=== PATIENT | female | born 1940 | race Caucasian/White ===

== ENCOUNTER 2020-02-11 09:44 | Emergency (ER) | payer MEDICARE, SELFPAY ==
[2020-02-11 09:51] VITALS: BP 160/72; PULSE 89; RESP 18; TEMP 36.5; O2SAT 95; BMI 36.7
--- NOTE | 2020-02-11 10:31 | XR_ITS ---
EXAMINATION: XR ABDOMEN KUB CLINICAL INDICATION: Constipation, disimpacted, rule out small bowel obstruction COMPARISON: None TECHNIQUE: AP view of the abdomen. FINDINGS: The bowel gas pattern is normal with no evidence of ileus or obstruction. Gas and stool present throughout the colon. The rectum appears fairly empty. No unusual soft tissue calcifications are noted. Degenerative changes present in the spine and hips. XR/XR KUB IMPRESSION: Unremarkable examination. No evidence of small bowel obstruction.
--- NOTE | 2020-02-11 10:32 | ED.NAVMDI ---
HPI - Nausea/Vomiting/Diarrhea General Chief complaint: Nausea/Vomiting/Diarrhea Stated complaint: diarrhea Time Seen by Provider: 02/11/20 10:14 Source: patient Mode of arrival: ambulatory History of Present Illness HPI Narrative: 79-year-old female with past medical history of hypertension presenting to the ED complaining of diarrhea, but feeling like stool is stuck in rectum since before . Reports straining on the toilet, feels like she is unable to empty, and reports generalized body shakiness. Denies fever, chills, nausea/vomiting, bloody stools/melena, dysuria/hematuria, suspicious food intake, recent antibiotic MD elicited complaint: diarrhea Related Data Home Medications Medication Instructions Recorded Confirmed famotidine 20 mg tablet 20 mg PO BID PRN tab 01/01/20 hydrochlorothiazide 12.5 mg capsule 12.5 mg PO DAILY 01/01/20 oxybutynin chloride 5 mg tablet 5 mg PO DAILY 01/01/20 simvastatin 20 mg tablet 20 mg PO BEDTIME 01/01/20 estradiol 1 mg tablet 1 mg PO DAILY 01/29/20 Previous Rx's Medication Instructions Recorded diltiazem HCl 240 mg 240 mg PO QAM #90 cap 12/20/19 capsule,extended release 24 hr oxybutynin chloride 5 mg tablet 5 mg PO BEDTIME #90 tab 12/20/19 losartan 50 mg tablet 50 mg PO DAILY #90 tab 01/01/20 cholecalciferol (vitamin D3) 125 125 mcg PO DAILY 90 Days #90 cap 01/31/20 mcg (5,000 unit) capsule estradiol 1 mg tablet 1 mg PO DAILY 30 Days #30 tab 01/31/20 glycerin (adult) 1 supp WA DAILY PRN #12 ea 02/11/20 Allergies Allergy/AdvReac Type Severity Reaction Status Date / Time levofloxacin Allergy Unknown Verified 04/19/19 00:00 penicillin V Allergy Unknown Verified 04/19/19 00:00 Sulfa (Sulfonamide Allergy Unknown Verified 04/19/19 00:00 Antibiotics) No Known Allergies Allergy Unverified 11/02/19 15:43 [No Known Allergies*] Review of Systems Review of Systems: Constitutional: No Weight loss, No Fever, No Chills, +shakiness Cardiovascular: No Chest Pain, No SOB, No Dyspnea on Exertion Respiratory: No Cough, No Sputum, No Wheezing, No Smoke Exposure, No Dyspnea Gastrointestinal: No Nausea, No Vomiting, + Diarrhea, + Constipation, No Abdominal pain, No Hematochezia, No Melena Genitourinary: No irregular bleeding, No Dysuria, No Urinary Frequency, No Hematuria Musculoskeletal: No joint pain, No Myalgias, No Joint Swelling Skin: No Skin Lesions, No rash Neuro: No Weakness, No Numbness, No Dizziness, No Headache Yes all other systems are reviewed and are negative [facility] Past Medical History Attestation statement: The following information was validated with the patient. Social History Social History Smoked in Last 30 Days: No Use of substances other than those prescribed or required for medical reasons: No Advance Directives: No Advance Directives Information Provided: No Physical Exam Vital Signs: Vital Signs: Last Vital Signs Temp 97.7 F 02/11/20 09:51 Pulse 60 02/11/20 11:57 Resp 16 02/11/20 11:57 BP 162/66 H 02/11/20 10:48 Pulse Ox 96 02/11/20 11:57 Body Mass Index 36.7 Const: General: cooperative and healthy appearing Orientation/consciousness: patient oriented x3 Limitations: no limitations HENMT: Head: Yes normal to inspection Ears: hearing grossly normal bilaterally General nose exam: Normal external nose present Face and sinus: Yes normal facial exam Eyes: General: appearance normal, both eyes and all related structures EOM: EOMs intact bilaterally Neck: Neck: Yes normal visual inspection Resp: Effort & Inspection: normal respiratory effort Auscultation: clear to auscultation bilaterally, no rales, no rhonchi and no wheezes Cardio: Rate: regular rate Heart sounds: S1 normal heart sound present and S2 normal heart sound present GI: Inspection: Yes normal to inspection Palpation (GI): Soft to palpation, nontender, no guarding and not rigid Rectal Exam - Female: fecal impaction (Manually disimpacted) : General: Yes no CVA tenderness Back/Spine/Pelvis: Back: no CVA tenderness Skin: Rashes: no rashes Wounds: no wounds Neuro: Other: No shakiness or tremor appreciated General: patient oriented x3, tone normal, moves all extremities, no focal motor deficits and CN's II-XI intact bilaterally Gait exam (Neuro): Normal gait present Motor exam (neuro): 5/5 motor strength present throughout Extrem: General: Yes normal to inspection Course Course Course Narrative: Labs unremarkable KUB without evidence of bowel obstruction Orthostatic vital signs negative UA negative. Lab and imaging results discussed with patient including worrisome signs and symptoms and strict return precautions. She verbalized understanding feel safe for discharge home MDM - Nausea/Vomiting/Diarrhea MDM Narrative Medical decision making narrative: 79-year-old female with past medical history of hypertension presenting to the ED complaining of diarrhea, but feeling like stool is stuck in rectum since before [place]. On exam VSS, NAD/well appearing, abdomen soft/nontender, on rectal fecal impaction noted and manually disimpacted. Concern for SBO vs constipation vs dehydration/metabolic abnormalities. Low concern for ACS/appendicitis/diverticulitis Plan: Labs, KUB, orthostatics, IVF Lab Data Result diagrams: 02/11/20 11:29 02/11/20 11:29 Labs: Lab Results 02/11/20 02/11/20 02/11/20 Range/Units 11:29 11:29 11:29 WBC 10.6 (4.8-10.8) X10*3/uL RBC 4.07 L (4.20-5.50) X10*6/uL Hgb 11.9 L (12.0-16.0) g/dl Hct 36.9 L (37-47) % MCV 90.7 (80-98) fL MCH 29.2 (27.0-33.0) pg MCHC 32.2 (31.0-35.0) g/dl RDW 14.1 (11.0-16.0) % Plt Count 270 (160-400) X10*3/uL MPV 11.4 (9.4-12.3) fL Immature Gran % (Auto) 0.3 (0.0-0.4) % Neut % (Auto) 73.5 H (45-73) % Lymph % (Auto) 16.5 L (20-40) % [place] % (Auto) 8.7 (2-11) % Eos % (Auto) 0.5 (0-4) % Baso % (Auto) 0.5 (0-2) % Lymph # (Auto) 1.8 (1.2-4.9) X10*3/uL [place] # (Auto) 0.9 (0.1-1.2) X10*3/uL Eos # (Auto) 0.1 (0.0-0.4) X10*3/uL Baso # (Auto) 0.1 (0.0-0.2) X10*3/uL Abs Immat Gran (auto) 0.03 (0.00-0.03) X10*3/uL Absolute Neuts (auto) 7.8 (2.0-8.3) X10*3/uL Absolute Nucleated RBC 0.000 (0.0-0.012) X10*3/uL Nucleated RBC % (auto) 0.0 (0.0-0.2) /100WBC Hold Blue Top SEE NOTE Sodium 141 (135-145) mmol/L Potassium 4.0 (3.3-5.1) mmol/l Chloride 107 (96-108) mmol/L Carbon Dioxide 23 (22-29) mmol/L Anion Gap 15 (12-20) BUN 17 H (9-16) mg/dL Creatinine 0.93 (0.5-1.4) mg/dL Estim Creat Clear Calc 46.3 Estimated GFR 58 Random Glucose 129 H (60-115) mg/dL Calcium 9.1 (8.4-10.2) mg/dL Magnesium 1.8 (1.6-2.6) mg/dL Total Bilirubin 0.4 (0.0-1.0) mg/dL Direct Bilirubin 0.2 (0.0-0.5) mg/dL AST 20 (5-31) U/L ALT 11 (0-31) U/L Alkaline Phosphatase 82 (39-117) U/L Total Protein 6.9 (6.5-8.0) g/dL Albumin 3.8 (3.5-5.0) g/dL Lipase 8 (8-78) U/L Urine Color Urine Appearance Urine pH (5.0-8.0) Ur Specific [place] (1.005-1.025) Urine Protein (NEG-TRACE) MG/DL Urine Glucose (UA) (NEG) MG/DL Urine Ketones (NEG) MG/DL Urine Blood (NEG) Urine Nitrite (NEG) Ur Leukocyte Esterase (NEG) 02/10/ Range/Units 12:20 WBC (4.8-10.8) X10*3/uL RBC (4.20-5.50) X10*6/uL Hgb (12.0-16.0) g/dl Hct (37-47) % MCV (80-98) fL MCH (27.0-33.0) pg MCHC (31.0-35.0) g/dl RDW (11.0-16.0) % Plt Count (160-400) X10*3/uL MPV (9.4-12.3) fL Immature Gran % (Auto) (0.0-0.4) % Neut % (Auto) (45-73) % Lymph % (Auto) (20-40) % [place] % (Auto) (2-11) % Eos % (Auto) (0-4) % Baso % (Auto) (0-2) % Lymph # (Auto) (1.2-4.9) X10*3/uL [place] # (Auto) (0.1-1.2) X10*3/uL Eos # (Auto) (0.0-0.4) X10*3/uL Baso # (Auto) (0.0-0.2) X10*3/uL Abs Immat Gran (auto) (0.00-0.03) X10*3/uL Absolute Neuts (auto) (2.0-8.3) X10*3/uL Absolute Nucleated RBC (0.0-0.012) X10*3/uL Nucleated RBC % (auto) (0.0-0.2) /100WBC Hold Blue Top Sodium (135-145) mmol/L Potassium (3.3-5.1) mmol/l Chloride (96-108) mmol/L Carbon Dioxide (22-29) mmol/L Anion Gap (12-20) BUN (9-16) mg/dL Creatinine (0.5-1.4) mg/dL Estim Creat Clear Calc Estimated GFR Random Glucose (60-115) mg/dL Calcium (8.4-10.2) mg/dL Magnesium (1.6-2.6) mg/dL Total Bilirubin (0.0-1.0) mg/dL Direct Bilirubin (0.0-0.5) mg/dL AST (5-31) U/L ALT (0-31) U/L Alkaline Phosphatase (39-117) U/L Total Protein (6.5-8.0) g/dL Albumin (3.5-5.0) g/dL Lipase (8-78) U/L Urine Color YELLOW Urine Appearance CLEAR Urine pH 6.5 (5.0-8.0) Ur Specific [place] 1.020 (1.005-1.025) Urine Protein NEG (NEG-TRACE) MG/DL Urine Glucose (UA) NEG (NEG) MG/DL Urine Ketones NEG (NEG) MG/DL Urine Blood NEG (NEG) Urine Nitrite NEG (NEG) Ur Leukocyte Esterase NEG (NEG) Discharge Plan Discharge Clinical Impression: Fecal impaction Patient Disposition: Home, Self-Care Instructions: Fecal Impaction (ED) Additional Instructions: You had a fecal impaction today in the Emergency Department that was removed Use glycerin suppositories to help loosen the stool If you do not have a normal bowel movement in the next 24-48 hours you need to return to the emergency department Make sure staying hydrated at home If you develop nausea/vomiting, fever, or abdominal pain return to the ED Follow-up with her doctor Prescriptions: New glycerin (adult) Suppository 1 supp WA DAILY PRN (Reason: constipation) Qty: 12 RF: 0 No Action diltiazem HCl [Cartia XT] 240 mg capsule,extended release 24hr 240 mg PO QAM Qty: 90 RF: 0 oxybutynin chloride 5 mg tablet 5 mg PO BEDTIME Qty: 90 RF: 0 hydrochlorothiazide 12.5 mg capsule 12.5 mg PO DAILY RF: 0 famotidine 20 mg tablet 20 mg PO BID PRNRF: 0 oxybutynin chloride 5 mg tablet 5 mg PO DAILY RF: 0 simvastatin 20 mg tablet 20 mg PO BEDTIME RF: 0 losartan 50 mg tablet 50 mg PO DAILY Qty: 90 RF: 0 estradiol 1 mg tablet 1 mg PO DAILY 30 Days Qty: 30 RF: 1 cholecalciferol (vitamin D3) 125 mcg (5,000 unit) capsule 125 mcg PO DAILY 90 Days Qty: 90 RF: 12 Referrals: Duong Ramirez MD [Primary Care Provider] - 2 days
[2020-02-11 10:43] VITALS: BP 152/64; PULSE 69
[2020-02-11 10:46] VITALS: BP 149/67; PULSE 69
[2020-02-11 10:48] VITALS: BP 162/66; PULSE 82
[2020-02-11] MEDS: 0.9 % Sodium Chloride 1,000 ML 999 ML IVCONT (11:03)
[2020-02-11 11:34] LABS: Basophils Absolute Auto 0.1 X10*3/uL (0.0-0.2); Basophils Percent Auto 0.5 % (0-2); Eosinophils Absolute Auto 0.1 X10*3/uL (0.0-0.4); Eosinophils Percent Auto 0.5 % (0-4); Hematocrit 36.9 % (37-47); Hemoglobin 11.9 g/dl (12.0-16.0); Imm Gran Abs Auto 0.03 X10*3/uL (0.00-0.03); Imm Gran Pct Auto 0.3 % (0.0-0.4); Lymphocytes Absolute Auto 1.8 X10*3/uL (1.2-4.9); Lymphocytes Percent Auto 16.5 % (20-40); MANUAL DIFF FLAG NO; Mean Corpuscular HGB Conc 32.2 g/dl (31.0-35.0); Mean Corpuscular Hemoglobin 29.2 pg (27.0-33.0); Mean Corpuscular Volume 90.7 fL (80-98); Mean Platelet Volume 11.4 fL (9.4-12.3); Monocytes Absolute Auto 0.9 X10*3/uL (0.1-1.2); Monocytes Percent Auto 8.7 % (2-11); Neutrophils Absolute Auto 7.8 X10*3/uL (2.0-8.3); Neutrophils Percent Auto 73.5 % (45-73); Platelet Count 270 X10*3/uL (160-400); Red Blood Count 4.07 X10*6/uL (4.20-5.50); Red Cell Distribution Width 14.1 % (11.0-16.0); White Blood Count 10.6 X10*3/uL (4.8-10.8)
[2020-02-11 11:56] LABS: Alanine Aminotransferase 11 U/L (0-31); Albumin Level 3.8 g/dL (3.5-5.0); Alkaline Phosphatase 82 U/L (39-117); Anion Gap 15 (12-20); Aspartate Amino Transferase 20 U/L (5-31); Bilirubin Direct 0.2 mg/dL (0.0-0.5); Bilirubin Total 0.4 mg/dL (0.0-1.0); Blood Urea Nitrogen 17 mg/dL (9-16); Calcium 9.1 mg/dL (8.4-10.2); Carbon Dioxide 23 mmol/L (22-29); Chloride 107 mmol/L (96-108); Creatinine Clr Calc Pharmacy 46.3; Estimated Glomerular Filt Rate 58; Glucose Random 129 mg/dL (60-115); Lipase 8 U/L (8-78); Magnesium 1.8 mg/dL (1.6-2.6); Sodium 141 mmol/L (135-145); Total Protein 6.9 g/dL (6.5-8.0)
[2020-02-11 11:57] VITALS: PULSE 60; RESP 16; O2SAT 96
[2020-02-11 12:30] LABS: Glucose Urine UA NEG (NEG); Leukocyte Esterase Urine NEG (NEG); Nitrite Urine NEG (NEG); PH 6.5 (5.0-8.0); Urine Blood NEG (NEG); Urine Ketones NEG (NEG); Urine Protein NEG (NEG-TRACE)
[2020-02-11 12:32] LABS: Appearance Urine CLEAR; Color Urine YELLOW
== END 2020-02-11 13:18 | disposition home or self-care (01) ==
PROVIDERS: Physician Assistant; Emergency Provider Emergency Medicine Emergency Medical Services; PCP Internal Medicine
DX: K56.41 Fecal impaction (principal); Z79.899 Other long term (current) drug therapy
CPT/HCPCS: 36415; 74018; 80048; 80076; 81003; 83690; 83735; 85025; 96360; 99284

== ENCOUNTER 2020-02-29 07:37 | Outpatient (REF) | payer MEDICARE, SELFPAY ==
[2020-02-29 08:23] LABS: MANUAL DIFF FLAG NO
[2020-02-29 08:36] LABS: Basophils Absolute Auto 0.1 X10*3/uL (0.0-0.2); Basophils Percent Auto 0.8 % (0-2); Eosinophils Absolute Auto 0.2 X10*3/uL (0.0-0.4); Eosinophils Percent Auto 2.6 % (0-4); Imm Gran Abs Auto 0.03 X10*3/uL (0.00-0.03); Imm Gran Pct Auto 0.3 % (0.0-0.4); Lymphocytes Percent Auto 32.1 % (20-40); Mean Corpuscular HGB Conc 31.6 g/dl (31.0-35.0); Mean Corpuscular Hemoglobin 28.7 pg (27.0-33.0); Mean Corpuscular Volume 90.9 fL (80-98); Mean Platelet Volume 12.1 fL (9.4-12.3); Monocytes Absolute Auto 0.9 X10*3/uL (0.1-1.2); Monocytes Percent Auto 10.1 % (2-11); Neutrophils Percent Auto 54.1 % (45-73); Platelet Count 270 X10*3/uL (160-400); Red Blood Count 4.18 X10*6/uL (4.20-5.50); Red Cell Distribution Width 14.3 % (11.0-16.0); White Blood Count 9.2 X10*3/uL (4.8-10.8)
[2020-02-29 08:58] LABS: Alanine Aminotransferase 10 U/L (0-31); Albumin Level 3.7 g/dL (3.5-5.0); Alkaline Phosphatase 80 U/L (39-117); Anion Gap 17 (12-20); Aspartate Amino Transferase 19 U/L (5-31); Bilirubin Total 0.5 mg/dL (0.0-1.0); Blood Urea Nitrogen 23 mg/dL (9-16); Calcium 8.9 mg/dL (8.4-10.2); Carbon Dioxide 19 mmol/L (22-29); Chloride 109 mmol/L (96-108); Cholesterol 160 mg/dL; Estimated Glomerular Filt Rate 56; Glucose Fasting 129 mg/dL (60-99); HDL Cholesterol 60 mg/dL; LDL Cholesterol Calculated 73 mg/dl; Potassium 4.2 mmol/l (3.3-5.1); Sodium 141 mmol/L (135-145); Total Protein 6.7 g/dL (6.5-8.0); Triglycerides 136 mg/dL
[2020-02-29 09:04] LABS: Estimated Average Glucose 114 mg/dL; Hemoglobin A1C 117.8076 umol/L; Hemoglobin A1c % 5.6 %
[2020-02-29 09:20] LABS: Free T4 (Free Thyroxine) 0.85 ng/dL (0.71-1.85); Thyroid Stimulating Hormone 3.81 uIU/mL (0.32-4.0); Vitamin D 25-OH Total 57.1 ng/mL (>30)
[2020-02-29 10:18] LABS: Glucose Urine UA NEG (NEG); Leukocyte Esterase Urine NEG (NEG); Nitrite Urine NEG (NEG); Specific Gravity - Urine 1.025 (1.005-1.025); Urine Blood NEG (NEG); Urine Ketones NEG (NEG); Urine Protein NEG (NEG-TRACE)
[2020-02-29 10:23] LABS: Color Urine YELLOW
[2020-02-29 10:24] LABS: Appearance Urine HAZY
[2020-02-29 11:14] LABS: Bacteria Urine 3+ /LPF; RBC Urine 0 /HPF (0); Squamous Epithelial Cell Urine 3+ /LPF; WBC Urine 0-2 /HPF (0-4)
== END 2020-02-29 07:38 | disposition home or self-care (01) ==
LOC: HO.LAB 07:37
PROVIDERS: Visit Provider Internal Medicine
DX: I10 Essential (primary) hypertension (principal); E78.5 Hyperlipidemia, unspecified; R73.01 Impaired fasting glucose; K21.9 Gastro-esophageal reflux disease without esophagitis; E55.9 Vitamin D deficiency, unspecified; M85.80 Other specified disorders of bone density and structure, unspecified site
CPT/HCPCS: 36415; 80053; 80061; 81001; 82306; 83036; 84439; 84443; 85025

== ENCOUNTER 2020-05-28 09:30 | Observation (INO) | payer MEDICARE, SELFPAY ==
[2020-05-28] VITALS (8 sets, daily range): BP systolic 153–177; BP diastolic 41–87; PULSE 52–63; RESP 14–19; TEMP 36.4–36.7; O2SAT 97–99; BMI 34.0
--- NOTE | ~2020-05-28 | MR_ITS ---
EXAMINATION: BRAIN MRI WITHOUT CONTRAST CLINICAL INFORMATION: Transient ischemic attack. COMPARISON: CT angiogram of the head and neck 05/28/2020. TECHNIQUE: Multiplanar MR imaging of the brain was performed without contrast. FINDINGS: There are scattered nonspecific foci of T2 FLAIR signal hyperintensity within the periventricular white matter. No acute territorial infarct. No pathological magnetic susceptibility artifact. Intracranial vascular flow voids are maintained. There is no intracranial mass effect or midline shift. No abnormal extra-axial collection. Lateral and third ventricles are proportionate to the subarachnoid spaces. Midline structures including the cervicomedullary junction are normal. No acute bone marrow signal changes. There is no mastoid middle ear effusion. There is mild paranasal sinus disease primarily affecting the ethmoid air cells. MR/MR head/brain wo con IMPRESSION: There are scattered chronic small vessel ischemic changes within the periventricular white matter. Otherwise unremarkable examination. No evidence of acute territorial infarct or hemorrhage.
--- NOTE | ~2020-05-28 | CT_ITS ---
EXAMINATION: CT angio head neck CLINICAL INFORMATION: Right upper extremity weakness and numbness. COMPARISON: No relevant prior imaging. TECHNIQUE: Program Attendant images were obtained. A CT angiogram of the head and neck was performed in the arterial phase after the intravenous administration of 70 mL Omnipaque 350. Pre and delayed postcontrast images of the head were also obtained. MIP reconstructions were generated in multiple orientations at the acquisition workstation. Multiple three-dimensional surface rendered images and maximum intensity projection images were generated on a dedicated 3-D lab workstation. Arterial stenoses are measured in accordance with NASCET criteria or similar method if applicable. This CT examination was performed using dose optimization techniques as appropriate, including one or more of the following: Automated exposure control, iterative reconstruction, and adjustment of technique factors (mA and/or kVp) according to patient size (this includes techniques or standardized protocols for targeted exams where dose is matched to indication/reason for exam). Total exam dose-length product 2055 mGy-cm FINDINGS: Head: There is no acute intracranial hemorrhage or abnormal extra-axial collection. Postcontrast sagittal no abnormal intracranial mass or enhancement. No intracranial mass effect midline shift. Lateral and third ventricles are proportionate to the subarachnoid spaces. No hydrocephalus. There are numerous foci of hypoattenuation within the periventricular white matter that most likely represent a chronic manifestation of small vessel ischemia. Godfrey-white matter differentiation is otherwise preserved and there is no evidence of acute territorial infarct. The calvarium and skull base are intact. Mastoid air cells and middle ear cavities are well aerated. No active paranasal sinus disease. CT angiogram neck: The aortic arch apex is normal. Origins of major aortic branches are widely patent., Carotid arteries are patent. Partially calcified atherosclerotic plaque involves both carotid bifurcations. No stenosis of the extracranial internal carotid arteries. The cervical segments of the vertebral arteries as well as their origins are patent. CT angiogram head: Intracranial internal carotid arteries are normal. The intradural vertebral artery segments and basilar artery are normal. Anterior, middle, and posterior cerebral complexes are normal. No high-grade stenosis or proximal occlusion is visualized within the intracranial vessels. Other: Soft tissues of the neck including the thyroid gland are normal. Visualized lung apices are clear. There is no acute osseous finding. No worrisome lytic or blastic osseous lesion. CT/CT angio head neck IMPRESSION: Unremarkable CT angiogram of the head and neck in that there is no stenosis of the cervical carotid or vertebral arteries. No high-grade stenosis or proximal occlusion within the intracranial vessels. There are numerous chronic small vessel ischemic changes within the periventricular white matter. No evidence of acute territorial infarct or hemorrhage. No abnormal intracranial mass or enhancement.
--- NOTE | 2020-05-28 09:39 | ECG_ITS ---
Test Reason : CHEST PAIN Blood Pressure : / mmHG Vent. Rate : 055 BPM Atrial Rate : 055 BPM P-R Int : 178 ms QRS Dur : 160 ms QT Int : 488 ms P-R-T Axes : 047 055 040 degrees QTc Int : 466 ms Sinus bradycardia Right bundle branch block Abnormal ECG When compared with ECG of 28-OCT-2017 09:34, No significant change was found Referred By: Generic ED Physician Electronically Signed By:VIELKA NAJERA
--- NOTE | 2020-05-28 10:11 | ED.CHESTPAIN ---
HPI - Chest Pain General Chief Complaint: Chest Pain Stated Complaint: chest pain Time Seen by Provider: 05/28/20 10:11 Source: patient Mode of arrival: ambulatory Limitations: no limitations History of Present Illness HPI narrative: Today patient had chest pain that lasted for 5 minutes. Yesterday patient had weakness to her right arm for 5 minutes MD complaint: chest pain Onset (ago): minute(s) Timing of current episode: constant Onset: during rest Pain location: substernal Pain radiation: none Severity: moderate Related Data Home Medications Medication Instructions Recorded Confirmed famotidine 20 mg tablet 20 mg PO BID PRN tab 01/01/20 03/04/20 estradiol 1 mg tablet 1 mg PO DAILY 01/29/20 03/04/20 Previous Rx's Medication Instructions Recorded glycerin (adult) 1 supp NM DAILY PRN #12 ea 02/11/20 cholecalciferol (vitamin D3) 50 50 mcg PO DAILY 90 Days #90 cap 03/04/20 mcg (2,000 unit) capsule diltiazem HCl 240 mg 240 mg PO QAM #90 cap 03/23/20 capsule,extended release 24 hr oxybutynin chloride 5 mg tablet 5 mg PO BEDTIME #90 tab 03/25/20 estradiol 1 mg tablet 1 mg PO DAILY 30 Days #30 tab 04/03/20 losartan 50 mg tablet 50 mg PO DAILY #90 tab 04/03/20 clonazepam 0.5 mg tablet 0.5 mg PO DAILY PRN 30 Days #30 tab 05/01/20 hydrochlorothiazide 12.5 mg capsule 12.5 mg PO DAILY #90 cap 05/01/20 simvastatin 20 mg tablet 20 mg PO BEDTIME #90 tab 05/26/20 Allergies Allergy/AdvReac Type Severity Reaction Status Date / Time levofloxacin Allergy Unknown Unknown Verified 03/04/20 14:45 penicillin V Allergy Unknown Unknown Verified 03/04/20 14:45 Sulfa (Sulfonamide Allergy Unknown Unknown Verified 03/04/20 14:45 Antibiotics) Review of Systems Constitutional: Constitutional: Reports no additional constitutional complaints Eyes: Eyes: Reports no additional eye complaints ENT: Denies dizziness Cardiovascular: Cardiovascular: Reports no additional cardiovascular complaints Respiratory: Respiratory: Reports as per HPI Gastrointestinal: Gastrointestinal: Reports no additional gastrointestinal complaints Genitourinary: Genitourinary: Reports no additional female genitourinary complaints Musculoskeletal: Musculoskeletal: Reports no additional musculoskeletal complaints Integumentary/Breasts: Skin/Breast: Denies rash Neurologic: Reports system reviewed and no additional complaints, except as documented, Denies dizziness and Denies Sensory deficit (Neuro) Psychiatric: Psychiatric: Denies anxiety [facility] Past Medical History Medical History Anxiety Benign essential hypertension Elevated TSH GERD without esophagitis Impaired fasting glucose Lumbar degenerative disc disease Obesity (BMI 30-39.9) Osteopenia Pure hypercholesterolemia Vitamin D deficiency Surgical History History of surgery History of total abdominal hysterectomy and bilateral salpingo-oophorectomy Family History Family History Father Cancer Mother Cancer Hypertension Chronic mental illness Brother No problems noted. Sister No problems noted. Social History Social History Alcohol intake: current Alcohol intake frequency: holidays/special occasions only Alcohol type: wine Smoking Status: Never smoker Advance Directives: No Physical Exam Vital Signs: Vital Signs: Last Vital Signs Temp 98.1 F 05/28/20 10:02 Pulse 58 05/28/20 10:02 Resp 16 05/28/20 10:02 BP 165/47 H 05/28/20 10:02 Pulse Ox 98 05/28/20 10:02 Body Mass Index 34.0 Const: General: healthy appearing Nutritional Appearance: obese Orientation/consciousness: oriented to person and patient oriented x3 Limitations: no limitations HENMT: Head: Yes normal to inspection Ears: external ears normal General nose exam: Normal external nose present Mouth: Normal oral and palatal mucosa present and oropharynx normal Throat: Yes posterior oropharynx normal Eyes: General: appearance normal, both eyes and all related structures Neck: Other: supple Neck: Yes normal visual inspection Chest: Chest palpation & inspection: normal inspection of the chest Resp: Auscultation: clear to auscultation bilaterally Cardio: Jugular venous distension: no JVD Rate: regular rate Rhythm: regular rhythm Heart sounds: S1 normal heart sound present and S2 normal heart sound present GI: Inspection: Yes normal to inspection Palpation (GI): Soft to palpation, nontender and No hepatosplenomegaly present Auscultation: normal bowel sounds : General: Yes no CVA tenderness Back/Spine/Pelvis: Back: no CVA tenderness Skin: General skin exam: no rashes or lesions noted Neuro: General: oriented to person and patient oriented x3 Cranial nerves: Yes CN's II-XII intact bilaterally Motor exam (neuro): 5/5 motor strength present throughout Sensory Exam: No Sensory deficit (Neuro) Extrem: General: Yes normal to inspection Psych: Appearance: grossly normal NIH Stroke Scale Internal: Initial- Upon Arrival Level of Consciousness: Alert Level of Consciousness Questions: Answers both questions correctly Level of Consciousness Commands: Performs both tasks correctly Best Gaze: Normal Visual: No visual loss Facial Palsy: Normal Motor Arm (Right): No drift Motor Arm (Left): No drift Motor Leg (Right): No drift Motor Leg (Left): No drift Limb Ataxia: Absent Sensory: Normal Best Language: No aphasia Dysarthia: Normal Extinction and Inattention: No abnormality Score: 0 MDM - Chest Pain MDM Narrative Medical decision making narrative: patient with an episode of palpitations today, question of SVT vs Afib, major reason for admission is likely TIA yesterday that affected her right arm lasting [address] that showed microinfarctions, but no severe stenosis of her arteries will admit Lab Data Attestation: I reviewed the patient's lab results. Result diagrams: 05/28/20 11:18 05/28/20 11:18 Labs: Lab Results 05/28/20 05/28/20 05/28/20 Range/Units 11:18 11:18 11:18 WBC 7.8 (4.8-10.8) X10*3/uL RBC 4.34 (4.20-5.50) X10*6/uL Hgb 12.3 (12.0-16.0) g/dl Hct 39.0 (37-47) % MCV 89.9 (80-98) fL MCH 28.3 (27.0-33.0) pg MCHC 31.5 (31.0-35.0) g/dl RDW 14.2 (11.0-16.0) % Plt Count 273 (160-400) X10*3/uL MPV 10.9 (9.4-12.3) fL Immature Gran % (Auto) 0.1 (0.0-0.4) % Neut % (Auto) 55.3 (45-73) % Lymph % (Auto) 30.4 (20-40) % [place] % (Auto) 10.7 (2-11) % Eos % (Auto) 2.7 (0-4) % Baso % (Auto) 0.8 (0-2) % Lymph # (Auto) 2.4 (1.2-4.9) X10*3/uL [place] # (Auto) 0.8 (0.1-1.2) X10*3/uL Eos # (Auto) 0.2 (0.0-0.4) X10*3/uL Baso # (Auto) 0.1 (0.0-0.2) X10*3/uL Abs Immat Gran (auto) 0.01 (0.00-0.03) X10*3/uL Absolute Neuts (auto) 4.3 (2.0-8.3) X10*3/uL Absolute Nucleated RBC 0.000 (0.0-0.012) X10*3/uL Nucleated RBC % (auto) 0.0 (0.0-0.2) /100WBC Sodium 142 (135-145) mmol/L Potassium 4.8 (3.3-5.1) mmol/L Chloride 108 (96-108) mmol/L Carbon Dioxide 24 (22-29) mmol/L Anion Gap 15 (12-20) BUN 21 H (9-16) mg/dL Creatinine 0.92 (0.5-1.4) mg/dL Estim Creat Clear Calc 46.8 Estimated GFR 59 Random Glucose 111 (60-115) mg/dL Calcium 9.7 D (8.4-10.2) mg/dL Troponin I High Sens < 3.5 (<3.5-17.0) ng/L ECG Data ECG #1: Attestation: I personally reviewed and interpreted this ECG as follows: Interpretation: sinus rate 55 RBBB, no st or twave changes Critical Care Time Critical Care Time Attestation: I spent 40 minutes of critical care, with interventions, assessments, speaking to patient, consultants, and family. Discharge Plan Discharge Clinical Impression: Transient ischemic attack (TIA), Heart palpitations Patient Disposition: Admitted As Inpatient
[2020-05-28 11:25] LABS: MANUAL DIFF FLAG NO
[2020-05-28 11:26] LABS: Basophils Absolute Auto 0.1 X10*3/uL (0.0-0.2); Basophils Percent Auto 0.8 % (0-2); Eosinophils Absolute Auto 0.2 X10*3/uL (0.0-0.4); Eosinophils Percent Auto 2.7 % (0-4); Hemoglobin 12.3 g/dl (12.0-16.0); Imm Gran Abs Auto 0.01 X10*3/uL (0.00-0.03); Imm Gran Pct Auto 0.1 % (0.0-0.4); Lymphocytes Absolute Auto 2.4 X10*3/uL (1.2-4.9); Lymphocytes Percent Auto 30.4 % (20-40); Mean Corpuscular HGB Conc 31.5 g/dl (31.0-35.0); Mean Corpuscular Hemoglobin 28.3 pg (27.0-33.0); Mean Corpuscular Volume 89.9 fL (80-98); Mean Platelet Volume 10.9 fL (9.4-12.3); Monocytes Absolute Auto 0.8 X10*3/uL (0.1-1.2); Monocytes Percent Auto 10.7 % (2-11); Neutrophils Absolute Auto 4.3 X10*3/uL (2.0-8.3); Neutrophils Percent Auto 55.3 % (45-73); Platelet Count 273 X10*3/uL (160-400); Red Blood Count 4.34 X10*6/uL (4.20-5.50); Red Cell Distribution Width 14.2 % (11.0-16.0); White Blood Count 7.8 X10*3/uL (4.8-10.8)
[2020-05-28 11:52] LABS: Anion Gap 15 (12-20); Blood Urea Nitrogen 21 mg/dL (9-16); Calcium 9.7 mg/dL (8.4-10.2); Carbon Dioxide 24 mmol/L (22-29); Chloride 108 mmol/L (96-108); Creatinine Clr Calc Pharmacy 46.8; Estimated Glomerular Filt Rate 59; Glucose Random 111 mg/dL (60-115); Potassium 4.8 mmol/L (3.3-5.1); Sodium 142 mmol/L (135-145)
[2020-05-28 11:57] LABS: Troponin-I High Sensitivity < 3.5 ng/L (<3.5-17.0)
[2020-05-28] MEDS: iohexoL 350 MG/ML 100 ML INFUS..BTL IV (12:22)
--- NOTE | 2020-05-28 13:57 | P.HPHOSP_ITS ---
History of Present Illness Date of Service: 05/28/20 Chief Complaint: Palpitation left arm weakness the day before. 79-year-old female with hypertension, hyperlipidemia presents to the emergency room because of palpitation and right arm weakness that happened yesterday. She reports that yesterday she had an episode where her right arm became weak and numb for 5 minutes and a return to normal function and and has been fine. Today she had an experience where she was having palpitation and the episode lasted a bout 5 minutes. Iit has been documented elsewhere as the patient having chest pain but she categorically states that she did not have chest but rather had palpitation. Workup so far has been essentially unremarkable including EKG, troponin I level, CT of the head and neck. However there is still concern that the patient may have suffered a TIA and therefore has been admitted for further evaluation and monitoring. Review of Systems Review of Systems: Gen: no fever Resp: no sob, no cough CV: no chest, no WHYTE, no leg edema GI: No n/v, no abd pain Neuro: No confusion, no weaknes, no dizziness, visual changes. [facility] Medical History Anxiety Benign essential hypertension Elevated TSH GERD without esophagitis Impaired fasting glucose Lumbar degenerative disc disease Obesity (BMI 30-39.9) Osteopenia Pure hypercholesterolemia Vitamin D deficiency Patient : No Family History Father Cancer Mother Cancer Hypertension Chronic mental illness Brother No problems noted. Sister No problems noted. Pertinent family history: Surgical History History of surgery History of total abdominal hysterectomy and bilateral salpingo-oophorectomy Social History Alcohol intake: current Alcohol intake frequency: holidays/special occasions only Alcohol type: wine Smoking Status: Never smoker Advance Directives: No Meds Allergies Allergy/AdvReac Type Severity Reaction Status Date / Time levofloxacin Allergy Unknown Unknown Verified 03/04/20 14:45 penicillin V Allergy Unknown Unknown Verified 03/04/20 14:45 Sulfa (Sulfonamide Allergy Unknown Unknown Verified 03/04/20 14:45 Antibiotics) Home Medications Medication Instructions Recorded Confirmed Last Taken Type famotidine 20 mg tablet 20 mg PO BID PRN tab 01/01/20 03/04/20 Unknown History Physical Exam Vital Signs and Narrative: Vital Signs: Last Vital Signs Temp 97.7 F 05/28/20 13:48 Pulse 52 05/28/20 13:48 Resp 19 05/28/20 13:48 BP 177/55 H 05/28/20 13:48 Pulse Ox 98 05/28/20 13:48 Body Mass Index 34.0 Constitutional Awake and Alert, No apparent distress HEENT normal eye color, nomal movement, Neck Supple, No lymphadenopathy Cardiovascular RRR, No M/R/G, S1 S2, No S3 S4, No pedal edema Respiratory Lungs clear, No respiratory distress Gastrointestinal Non tender, Non-distended Skin No rash Heme no lymphadenopathy Neurological Alert & oriented x3, normal cranial nerves, strenght 5/5 in all extremities Psychological Appropriate affect Results Labs CBC and Chem 7: 05/28/20 11:18 05/28/20 11:18 Labs: Laboratory Results - last 24 hr 05/28/20 05/28/20 05/28/20 11:18 11:18 11:18 MCV 89.9 MCH 28.3 MCHC 31.5 RDW 14.2 Plt Count 273 MPV 10.9 Immature Gran % (Auto) 0.1 Neut % (Auto) 55.3 Lymph % (Auto) 30.4 [place] % (Auto) 10.7 Eos % (Auto) 2.7 Baso % (Auto) 0.8 Lymph # (Auto) 2.4 [place] # (Auto) 0.8 Eos # (Auto) 0.2 Baso # (Auto) 0.1 Abs Immat Gran (auto) 0.01 Absolute Neuts (auto) 4.3 Absolute Nucleated RBC 0.000 Nucleated RBC % (auto) 0.0 Anion Gap 15 Estim Creat Clear Calc 46.8 Estimated GFR 59 Random Glucose 111 Calcium 9.7 D Troponin I High Sens < 3.5 Imaging Radiologist's Impressions: Impressions Head/Neck CTA 05/28/20 10:23 IMPRESSION: Unremarkable CT angiogram of the head and neck in that there is no stenosis of the cervical carotid or vertebral arteries. No high-grade stenosis or proximal occlusion within the intracranial vessels. There are numerous chronic small vessel ischemic changes within the periventricular white matter. No evidence of acute territorial infarct or hemorrhage. No abnormal intracranial mass or enhancement. Assessment and Plan (1) Transient ischemic attack (TIA): Status: Acute (2) Heart palpitations: Status: Acute (3) Obesity (BMI 30-39.9): Status: Acute (4) Anxiety: Status: Acute (5) GERD without esophagitis: Status: Acute 79 year old female with HTN, HLD here with transient palpitation and right arm weakness 1 day ago..Concern TIA, AF Plan: #TIA:Monitor on tele to rule out AFIB, neuro checks per stroke protocol, check lipids in morning, controll HTN, add ASA, continue statin, #HTN--high, continue cardizem, Losartan and HCTZ and adjust for optimal BP co ntrol # Anxiety--ativan PRN #Bladder incontinence--Oxybutynin DVT Proph: Lovenox
[2020-05-28 14:57] LABS: Cholesterol 177 mg/dL; HDL Cholesterol 58 mg/dL; LDL Cholesterol Calculated 98 mg/dl; Triglycerides 107 mg/dL
[2020-05-28] MEDS: Enoxaparin Sodium 40 MG/0.4 ML SYRINGE SUBCUT (19:57)
[2020-05-29] VITALS: BP 149/65; PULSE 50; RESP 18; TEMP 36.4; O2SAT 98
[2020-05-29] MEDS: 0.9 % Sodium Chloride Flush 3 ML SYRINGE IVFLUSH ×2 (01:08→09:28)
[2020-05-29 04:00] VITALS: BP 141/65; PULSE 50; RESP 18; TEMP 36.4; O2SAT 99
[2020-05-29 07:25] VITALS: BP 170/74; PULSE 61; RESP 18; TEMP 36.6; O2SAT 97
--- NOTE | 2020-05-29 11:01 | MHC.CM.PN ---
met with pt and who report not having services prior to admission..and do not expect to need sevceis when dcd
--- NOTE | 2020-05-29 11:07 | PM.DS ---
DS: Providers Provider Date of Service: 06/18/20 Date of admission: 05/28/20 13:54 Primary care physician: Duong Ramirez MD Consults: 05/29/20 09:55 Consult to Neurology Routine Consulting Provider: [facility] Reason for consultation: TIA DS: Diagnosis Discharge Diagnosis (1) Transient ischemic attack (TIA): Status: Resolved Problem details: 79 years old woman who complained of few minutes of right hand numbness and weakness few days ago. There was no other associated symptom. At this time examination reveal signs of arthritis in abductor pollicis brevis atrophy. There was no obvious central signs. Head CT revealed chronic microvascular ischemic disease and CTA did not reveal any significant problem. She also complained of chest pressure before she came to emergency room. Overall clinical history is suggestive of transient ischemic attack or a small stroke. Though there is no large vessel disease, in this age group, cardiac source of embolism is a concern. It would be important to figure out if she really had a vascular event or not, i.e., embolic stroke. In this regard I would suggest obtaining a noncontrast MRI of brain before discharge, which would help us figure out her future clinical management. Until then she should continue combination of anti-platelet agent statin and blood pressure control. (2) Heart palpitations: Status: Resolved (3) Obesity (BMI 30-39.9): Status: Acute (4) Anxiety: Status: Acute (5) GERD without esophagitis: Status: Acute DS: Medications Discharge Medications Home Medications: Home Medications Medication Instructions Recorded Confirmed famotidine 20 mg tablet 20 mg PO BID PRN tab 01/01/20 03/04/20 Previous Rx's Medication Instructions Recorded glycerin (adult) 1 supp AK DAILY PRN #12 ea 02/11/20 cholecalciferol (vitamin D3) 50 50 mcg PO DAILY 90 Days #90 cap 03/04/20 mcg (2,000 unit) capsule diltiazem HCl 240 mg 240 mg PO QAM #90 cap 03/23/20 capsule,extended release 24 hr oxybutynin chloride 5 mg tablet 5 mg PO BEDTIME #90 tab 03/25/20 estradiol 1 mg tablet 1 mg PO DAILY 30 Days #30 tab 04/03/20 losartan 50 mg tablet 50 mg PO DAILY #90 tab 04/03/20 clonazepam 0.5 mg tablet 0.5 mg PO DAILY PRN 30 Days #30 tab 05/01/20 hydrochlorothiazide 12.5 mg capsule 12.5 mg PO DAILY #90 cap 05/01/20 simvastatin 20 mg tablet 20 mg PO BEDTIME #90 tab 05/26/20 DS: Summary Hospital Course Hospital Course: Chief Complaint: Palpitation left arm weakness the day before. 79-year-old female with hypertension, hyperlipidemia presents to the emergency room because of palpitation and right arm weakness that happened yesterday. She reports that yesterday she had an episode where her right arm became weak and numb for 5 minutes and a return to normal function and and has been fine. Today she had an experience where she was having palpitation and the episode lasted about 5 minutes. Iit has been documented elsewhere as the patient having chest pain but she categorically states that she did not have chest but rather had palpitation. Workup so far has been essentially unremarkable including EKG, troponin I level, CT of the head and neck. However there is still concern that the patient may have suffered a TIA and therefore has been admitted for further evaluation and monitoring. Hospital course: Time Spent with Patient Time attestation: Total time spent providing and/or coordinating discharge services: Discharge coordination time: Greater than 30 minutes Physical Exam Vital Signs: Vital Signs: Last Vital Signs Temp 97.9 F 05/29/20 07:25 Pulse 61 05/29/20 07:25 Resp 18 05/29/20 07:25 BP 170/74 H 05/29/20 07:25 Pulse Ox 97 05/29/20 07:25 Body Mass Index 34.0 DS: Data Data Completed and Pending Labs on day of discharge: Laboratory Results - last 24 hr 05/28/20 05/28/20 05/28/20 11:18 11:18 11:18 WBC 7.8 RBC 4.34 Hgb 12.3 Hct 39.0 MCV 89.9 MCH 28.3 MCHC 31.5 RDW 14.2 Plt Count 273 MPV 10.9 Immature Gran % (Auto) 0.1 Neut % (Auto) 55.3 Lymph % (Auto) 30.4 [place] % (Auto) 10.7 Eos % (Auto) 2.7 Baso % (Auto) 0.8 Lymph # (Auto) 2.4 [place] # (Auto) 0.8 Eos # (Auto) 0.2 Baso # (Auto) 0.1 Abs Immat Gran (auto) 0.01 Absolute Neuts (auto) 4.3 Absolute Nucleated RBC 0.000 Nucleated RBC % (auto) 0.0 Sodium 142 Potassium 4.8 Chloride 108 Carbon Dioxide 24 Anion Gap 15 BUN 21 H Creatinine 0.92 Estim Creat Clear Calc 46.8 Estimated GFR 59 Random Glucose 111 Calcium 9.7 D Troponin I High Sens < 3.5 Triglycerides 107 Cholesterol 177 LDL Cholesterol, Calc 98 HDL Cholesterol 58 Discharge Plan Discharge Anticipated Discharge Date/Time: 05/29/20 11:06 Patient Disposition: Home, Self-Care Referrals: Duong Ramirez MD [Primary Care Provider] - 1 Week Discharge Medications: New aspirin 81 mg tablet,delayed release (DR/EC) 81 mg PO DAILY Qty: 90 RF: 0 Continued famotidine 20 mg tablet 20 mg PO BID PRNRF: 0 diltiazem HCl [Cartia XT] 240 mg capsule,extended release 24hr 240 mg PO QAM Qty: 90 RF: 1 oxybutynin chloride 5 mg tablet 5 mg PO BEDTIME Qty: 90 RF: 0 losartan 50 mg tablet 50 mg PO DAILY Qty: 90 RF: 1 hydrochlorothiazide 12.5 mg capsule 12.5 mg PO DAILY Qty: 90 RF: 0 simvastatin 20 mg tablet 20 mg PO BEDTIME Qty: 90 RF: 2 glycerin (adult) Suppository 1 supp AK DAILY PRN (Reason: constipation) Qty: 12 RF: 0 No Action clonazepam 0.5 mg tablet 0.5 mg PO DAILY PRN (Reason: anxiety) 30 Days Qty: 30 RF: 0 estradiol 1 mg tablet 1 mg PO DAILY 30 Days Qty: 30 RF: 1 cholecalciferol (vitamin D3) 125 mcg (5,000 unit) capsule 125 mcg PO DAILY RF: 0 Discharge Orders: Discharge Order (Routine); Ordered 05/29/20 Ordered By: Markie Angelo Diet: advance to usual diet Activity on Discharge: As tolerated Stand Alone Forms: Patient Portal Discharge page Care Plan Goals: Stroke prevention Health Concerns: Transient right arm weakness Plan of Treatment: Control blood pressure, take her lipid medications, take Assessment: TIA (transient ischemic attack.), follow-up with her primary care physician. Discharge Date/Time: 05/29/20 16:00
[2020-05-29 11:14] VITALS: BP 170/72; PULSE 60; RESP 18; TEMP 36.6; O2SAT 98
--- NOTE | 2020-05-29 11:28 | P.CNNE_ITS ---
History of Present Illness Data of Consult Service Date: 05/29/20 Primary Care Provider: Duong Ramirez MD 79 years old woman with underlying history of anxiety and obesity who came to hospital with right hand numbness and weakness that that was at least a day or 2 before she came to emergency room. When she arrived she had preceding chest pressure bringing her to emergency room. She stated that a day or 2 before that she had right hand numbness. Numbness was like her hand was not working. It lasted for few minutes. There was no associated headache or any other symptom. Review of Systems Review of Systems: Recent complaint of chest pressure but no cold or flu-like illness or trauma or neck pain. No headache. [facility] Past Medical History Medical History Anxiety Benign essential hypertension Elevated TSH GERD without esophagitis Impaired fasting glucose Lumbar degenerative disc disease Obesity (BMI 30-39.9) Osteopenia Pure hypercholesterolemia Vitamin D deficiency Family History Family History Father Cancer Mother Cancer Hypertension Chronic mental illness Brother No problems noted. Sister No problems noted. Surgical History Surgical History History of surgery History of total abdominal hysterectomy and bilateral salpingo-oophorectomy Social History Social History Alcohol intake: current Alcohol intake frequency: holidays/special occasions only Alcohol type: wine Smoking Status: Never smoker Advance Directives: No service: No Meds Allergies Allergy/AdvReac Type Severity Reaction Status Date / Time levofloxacin Allergy Unknown Unknown Verified 03/04/20 14:45 penicillin V Allergy Unknown Unknown Verified 03/04/20 14:45 Sulfa (Sulfonamide Allergy Unknown Unknown Verified 03/04/20 14:45 Antibiotics) Active Medications: Current Medications Generic Name Dose Route Start Last Admin Trade Name Freq PRN Reason Stop Dose Admin Diltiazem HCl 240 mg 05/29/20 11:15 Diltiazem Hcl Cd 240 Mg Cap.Er.Deg PO DAILY ONI Protocol Enoxaparin Sodium 40 mg 05/28/20 18:00 05/28/20 19:57 Enoxaparin Sodium 40 Mg/0.4 Ml Syringe SUBCUT 40 mg Q24H ONI Administration Hydrochlorothiazide 12.5 mg 05/29/20 11:05 Hydrochlorothiazide 12.5 Mg Tablet PO DAILY ONI Protocol Losartan Potassium 50 mg 05/29/20 11:05 Losartan Potassium 50 Mg Tablet PO DAILY [facility] Protocol Sodium Chloride 3 ml 05/28/20 16:00 05/29/20 09:28 0.9 % Sodium Chloride Flush 3 Ml Syringe IVFLUSH 3 ml QSHIFT ONI Administration Home Medications Medication Instructions Recorded Confirmed Last Taken Type famotidine 20 mg tablet 20 mg PO BID PRN tab 01/01/20 03/04/20 Unknown History Physical Exam Vital Signs: Vital Signs: Last Vital Signs Temp 97.8 F 05/29/20 11:14 Pulse 60 05/29/20 11:14 Resp 18 05/29/20 11:14 BP 170/72 H 05/29/20 11:14 Pulse Ox 98 05/29/20 11:14 Body Mass Index 34.0 She is alert and awake with normal spontaneity of speech fluency comprehension and affect. Pupils are equal and reactive to light and extraocular muscles were intact. Visual fisher are full. Face is symmetrical. Tongue is midline. There is no pronator drift. Arthritic changes and abductor pollicis brevis atrophy is noted in hands. Deep tendon reflexes are absent with flexor plantars. There is no obvious focal arm or leg weakness. Speech is normal. Results Labs CBC & Chem 7: 05/28/20 11:18 05/28/20 11:18 Labs: Short CBC 05/28/20 Range/Units 11:18 WBC 7.8 (4.8-10.8) X10*3/uL Hgb 12.3 (12.0-16.0) g/dl Hct 39.0 (37-47) % Plt Count 273 (160-400) X10*3/uL BMP 05/28/20 11:18 Sodium 142 Potassium 4.8 Chloride 108 Carbon Dioxide 24 BUN 21 H Creatinine 0.92 Calcium 9.[address] and CTA reveal chronic microvascular ischemic changes but no obvious vascular lesion or acute lesion. Assessment and Plan (1) Transient ischemic attack (TIA): Problem details: 79 years old woman who complained of few minutes of right hand numbness and weakness few days ago. There was no other associated symptom. At this time examination reveal signs of arthritis in abductor pollicis brevis atrophy. There was no obvious central signs. Head CT revealed chronic microvascular ischemic disease and CTA did not reveal any significant problem. She also complained of chest pressure before she came to emergency room. Overall clinical history is suggestive of transient ischemic attack or a small stroke. Though there is no large vessel disease, in this age group, cardiac source of embolism is a concern. It would be important to figure out if she really had a vascular event or not, i.e., embolic stroke. In this regard I would suggest obtaining a noncontrast MRI of brain before discharge, which would help us figure out her future clinical management. Until then she should continue combination of anti-platelet agent statin and blood pressure control. Status: Acute
[2020-05-29] MEDS: dilTIAZem HCL CD 240 MG CAP.ER.DEG PO (12:57)
[2020-05-29] MEDS: Losartan Potassium 50 MG TABLET PO (12:57)
[2020-05-29] MEDS: hydroCHLOROthiazide 12.5 MG TABLET PO (12:57)
[2020-05-29 15:06] VITALS: BP 138/63; PULSE 70; RESP 15; TEMP 36.6; O2SAT 96
--- NOTE | 2020-05-29 15:29 | MHC.CM.PN ---
pt dc home no services odered by
== END 2020-05-29 16:00 | disposition home or self-care (01) ==
LOC: HO.ED 13:09 → HO.EDOVER 14:10 → HO.IMC 19:28
PROVIDERS: Admitting Provider Internal Medicine; Emergency Provider Emergency Medicine; PCP Internal Medicine; Visit Provider Internal Medicine
DX: G45.9 Transient cerebral ischemic attack, unspecified (principal); R00.2 Palpitations; E66.9 Obesity, unspecified; F41.9 Anxiety disorder, unspecified; K21.9 Gastro-esophageal reflux disease without esophagitis; M62.81 Muscle weakness (generalized); R07.89 Other chest pain; I10 Essential (primary) hypertension; R94.6 Abnormal results of thyroid function studies; R73.09 Other abnormal glucose; M85.80 Other specified disorders of bone density and structure, unspecified site; E78.00 Pure hypercholesterolemia, unspecified; E55.9 Vitamin D deficiency, unspecified; I45.10 Unspecified right bundle-branch block; R94.31 Abnormal electrocardiogram [ECG] [EKG]; Z88.0 Allergy status to penicillin; Z88.2 Allergy status to sulfonamides; Z88.8 Allergy status to other drugs, medicaments and biological substances; Z90.710 Acquired absence of both cervix and uterus; Z90.79 Acquired absence of other genital organ(s); Z90.722 Acquired absence of ovaries, bilateral; Z79.82 Long term (current) use of aspirin; Z79.899 Other long term (current) drug therapy
CPT/HCPCS: 36415; 70496; 70498; 70551; 80048; 80061; 84484; 85025; 93005; 96372; 99219; 99285; 99291; J1650; Q9967

== ENCOUNTER 2020-09-09 07:18 | Outpatient (REF) | payer MEDICARE, SELFPAY ==
[2020-09-09 08:02] LABS: MANUAL DIFF FLAG NO
[2020-09-09 08:07] LABS: Basophils Absolute Auto 0.1 X10*3/uL (0.0-0.2); Basophils Percent Auto 0.6 % (0-2); Eosinophils Absolute Auto 0.4 X10*3/uL (0.0-0.4); Eosinophils Percent Auto 4.4 % (0-4); Hematocrit 36.2 % (37-47); Hemoglobin 11.6 g/dl (12.0-16.0); Imm Gran Abs Auto 0.06 X10*3/uL (0.00-0.03); Imm Gran Pct Auto 0.7 % (0.0-0.4); Lymphocytes Absolute Auto 3.2 X10*3/uL (1.2-4.9); Lymphocytes Percent Auto 35.1 % (20-40); Mean Corpuscular Hemoglobin 29.2 pg (27.0-33.0); Mean Corpuscular Volume 91.2 fL (80-98); Mean Platelet Volume 11.4 fL (9.4-12.3); Monocytes Absolute Auto 0.8 X10*3/uL (0.1-1.2); Neutrophils Absolute Auto 4.6 X10*3/uL (2.0-8.3); Neutrophils Percent Auto 50.2 % (45-73); Platelet Count 276 X10*3/uL (160-400); Red Blood Count 3.97 X10*6/uL (4.20-5.50); Red Cell Distribution Width 14.5 % (11.0-16.0)
[2020-09-09 08:32] LABS: Alanine Aminotransferase 7 U/L (0-31); Albumin Level 3.8 g/dL (3.5-5.0); Alkaline Phosphatase 88 U/L (39-117); Anion Gap 13 (12-20); Aspartate Amino Transferase 19 U/L (5-31); Bilirubin Total 0.5 mg/dL (0.0-1.0); Blood Urea Nitrogen 23 mg/dL (9-16); Calcium 9.7 mg/dL (8.4-10.2); Carbon Dioxide 23 mmol/L (22-29); Chloride 109 mmol/L (96-108); Cholesterol 159 mg/dL; Estimated Glomerular Filt Rate 46; Glucose Fasting 106 mg/dL (60-99); HDL Cholesterol 54 mg/dL; LDL Cholesterol Calculated 84 mg/dl; Potassium 4.3 mmol/L (3.3-5.1); Sodium 141 mmol/L (135-145); Total Protein 6.8 g/dL (6.5-8.0); Triglycerides 106 mg/dL
[2020-09-09 08:58] LABS: Free T4 (Free Thyroxine) 0.76 ng/dL (0.71-1.85); Vitamin D 25-OH Total 69.1 ng/mL (>30)
[2020-09-09 10:34] LABS: Glucose Urine UA NEG (NEG); Leukocyte Esterase Urine NEG (NEG); Nitrite Urine NEG (NEG); PH 6.5 (5.0-8.0); Specific Gravity - Urine 1.015 (1.005-1.025); Urine Blood NEG (NEG); Urine Ketones NEG (NEG); Urine Protein NEG (NEG-TRACE)
[2020-09-09 10:43] LABS: Appearance Urine CLEAR; Color Urine STRAW
== END 2020-09-09 07:19 | disposition home or self-care (01) ==
LOC: HO.LAB 07:18
PROVIDERS: PCP Internal Medicine; Visit Provider Internal Medicine
DX: E78.00 Pure hypercholesterolemia, unspecified (principal); I10 Essential (primary) hypertension; R73.01 Impaired fasting glucose; E66.9 Obesity, unspecified; R79.89 Other specified abnormal findings of blood chemistry; E55.9 Vitamin D deficiency, unspecified; K21.9 Gastro-esophageal reflux disease without esophagitis
CPT/HCPCS: 36415; 80053; 80061; 81003; 82306; 84439; 84443; 85025

== ENCOUNTER 2020-11-19 10:42 | Outpatient (REF) | payer MEDICARE, SELFPAY ==
--- NOTE | ~2020-11-19 | MM_ITS ---
EXAMINATION: BONE DENSITOMETRY CLINICAL INDICATION: Menopause. COMPARISON: Baseline BD dated 03/23/2017. TECHNIQUE: Using a [employer] DXA System (software version: 13.1) manufactured by [employer], dual-energy x-ray absorptiometry was performed of the lumbar spine and left hip. The images are of good technical quality. Summary results are attached. FINDINGS: AP SPINE L1-L4: Current: BMD 1.371 g/cm2, Z-score 3.0, T-score 1.6, normal, 10.4% increase from baseline (<5% change is not significant). Baseline: BMD 1.242 g/cm2. LEFT FEMUR, NECK: Current: BMD 0.803 g/cm2, Z-score 0.1, T-score -1.7, osteopenia. Baseline: BMD 0.813 g/cm2. LEFT FEMUR, TOTAL: Current: BMD 0.942 g/cm2, Z-score 1.1, T-score -0.5, normal, 4.9% decrease from baseline (<5% change is not significant). Baseline: BMD 0.991 g/cm2. IDENTIFIED RISK FACTORS: Menopause, height loss, hysterectomy, bilateral oophorectomy, history of fracture (adult) color-flow calcium intake, Thiazide. HISTORY OF FRACTURE: Wrist. MEDICATIONS: Vitamin D, ERT/SERMS. MM/XR DEXA axial skeleton IMPRESSION: 1. DIAGNOSIS: Osteopenia based on the lowest T-score value of -1.7 in the femoral neck applying World Health Organization criteria. 2. 10-YEAR FRACTURE RISK PREDICTION, FRAX: Major osteoporotic fracture (clinical spine, forearm, hip or shoulder) 18.8%. Hip fracture 4.2%. 3. Treatment Recommendations: NOF guidelines recommend consideration for treatment in postmenopausal women and men age 50 and older presenting with the following: -A hip or vertebral (clinical or morphometric) fracture. -T-score less than or equal to -2.5 at the femoral neck or spine after appropriate evaluation to exclude secondary causes. -Low bone mass at the hip or spine and a 10-year fracture probability by FRAX of greater than or equal to 3% for hip fracture or greater than or equal to 20% for major osteoporotic fracture based on the [place] adapted WHO algorithm. 4. Other Recommendations: All treatment decisions require clinical judgment and consideration of individual patient factors, including patient preferences, comorbidities, previous drug use, risk factors not captured in the FRAX model (e.g. frailty, falls, vitamin D deficiency, increased bone turnover, interval significant decline in bone density) and possible under or overestimation of fracture risk by FRAX. Additional medical evaluation for secondary cause of low bone mineral density may be appropriate. FUTURE SCAN RECOMMENDATION: People with diagnosed cases of osteoporosis or at high risk for fracture should have regular bone mineral density tests. For patients eligible for Medicare, routine testing is allowed once every 2 years. The testing frequency can be increased to one year for patients who have rapidly progressing disease, those who are receiving or discontinuing medical therapy to restore bone mass, or have additional risk factors.
== END 2020-11-19 10:43 | disposition home or self-care (01) ==
LOC: HO.MAMMO 10:42
PROVIDERS: PCP Internal Medicine; Visit Provider Nurse Practitioner Family
DX: Z13.820 Encounter for screening for osteoporosis (principal); Z78.0 Asymptomatic menopausal state
CPT/HCPCS: 77080

== ENCOUNTER 2021-01-13 09:17 | Outpatient (REF) | payer MEDICARE, SELFPAY ==
[2021-01-13 09:35] LABS: MANUAL DIFF FLAG NO
[2021-01-13 10:14] LABS: Basophils Absolute Auto 0.1 X10*3/uL (0.0-0.2); Basophils Percent Auto 1.1 % (0-2); Eosinophils Absolute Auto 0.3 X10*3/uL (0.0-0.4); Eosinophils Percent Auto 3.7 % (0-4); Hematocrit 36.7 % (37.0-47.0); Hemoglobin 11.9 g/dl (12.0-16.0); Imm Gran Abs Auto 0.02 X10*3/uL (0.00-0.03); Imm Gran Pct Auto 0.2 % (0.0-0.4); Lymphocytes Absolute Auto 2.2 X10*3/uL (1.2-4.9); Lymphocytes Percent Auto 27.1 % (20-40); Mean Corpuscular HGB Conc 32.4 g/dl (31.0-35.0); Mean Corpuscular Hemoglobin 29.4 pg (27.0-33.0); Mean Corpuscular Volume 90.6 fL (80.0-98.0); Mean Platelet Volume 11.9 fL (9.4-12.3); Monocytes Absolute Auto 0.7 X10*3/uL (0.1-1.2); Monocytes Percent Auto 8.4 % (2-11); Neutrophils Absolute Auto 4.8 x10*3/uL (2.0-8.3); Neutrophils Percent Auto 59.5 % (45-73); Platelet Count 249 X10*3/uL (160-400); Red Blood Count 4.05 X10*6/uL (4.20-5.50); Red Cell Distribution Width 14.2 % (11.0-16.0)
[2021-01-13 10:35] LABS: Alanine Aminotransferase 15 U/L (0-31); Albumin Level 3.7 g/dL (3.5-5.0); Alkaline Phosphatase 83 U/L (39-117); Anion Gap 13 (12-20); Aspartate Amino Transferase 24 U/L (5-31); Bilirubin Total 0.5 mg/dL (0.0-1.0); Blood Urea Nitrogen 22 mg/dL (9-16); Carbon Dioxide 24 mmol/L (22-29); Chloride 108 mmol/L (96-108); Cholesterol 169 mg/dL; Estimated Glomerular Filt Rate 51; Glucose Fasting 114 mg/dL (60-99); HDL Cholesterol 54 mg/dL; LDL Cholesterol Calculated 92 mg/dl; Potassium 4.4 mmol/L (3.3-5.1); Sodium 141 mmol/L (135-145); Total Protein 6.8 g/dL (6.5-8.0); Triglycerides 119 mg/dL
[2021-01-13 12:02] LABS: Appearance Urine HAZY; Color Urine YELLOW; Glucose Urine UA NEG (NEG); Leukocyte Esterase Urine NEG (NEG); Nitrite Urine NEG (NEG); Urine Blood NEG (NEG); Urine Ketones NEG (NEG); Urine Protein NEG (NEG-TRACE)
== END 2021-01-13 09:18 | disposition home or self-care (01) ==
LOC: HO.LAB 09:17
PROVIDERS: PCP Internal Medicine; Visit Provider Internal Medicine
DX: E78.00 Pure hypercholesterolemia, unspecified (principal); E55.9 Vitamin D deficiency, unspecified; I10 Essential (primary) hypertension
CPT/HCPCS: 36415; 80053; 80061; 81003; 82306; 84443; 85025

== ENCOUNTER 2021-05-15 07:38 | Outpatient (REF) | payer MEDICARE, SELFPAY ==
[2021-05-15 08:10] LABS: MANUAL DIFF FLAG NO
[2021-05-15 08:42] LABS: Basophils Absolute Auto 0.1 X10*3/uL (0.0-0.2); Basophils Percent Auto 1.1 % (0-2); Eosinophils Absolute Auto 0.3 X10*3/uL (0.0-0.4); Eosinophils Percent Auto 3.3 % (0-4); Hematocrit 36.6 % (37.0-47.0); Hemoglobin 11.7 g/dl (12.0-16.0); Imm Gran Abs Auto 0.04 X10*3/uL (0.00-0.03); Imm Gran Pct Auto 0.5 % (0.0-0.4); Lymphocytes Absolute Auto 2.9 X10*3/uL (1.2-4.9); Lymphocytes Percent Auto 34.2 % (20-40); Mean Corpuscular Volume 90.8 fL (80.0-98.0); Mean Platelet Volume 11.9 fL (9.4-12.3); Monocytes Absolute Auto 0.8 X10*3/uL (0.1-1.2); Monocytes Percent Auto 9.8 % (2-11); Neutrophils Absolute Auto 4.4 x10*3/uL (2.0-8.3); Neutrophils Percent Auto 51.1 % (45-73); Platelet Count 223 X10*3/uL (160-400); Red Blood Count 4.03 X10*6/uL (4.20-5.50); Red Cell Distribution Width 14.1 % (11.0-16.0); White Blood Count 8.5 X10*3/uL (4.8-10.8)
[2021-05-15 08:46] LABS: Appearance Urine HAZY; Color Urine YELLOW; Glucose Urine UA NEG (NEG); Leukocyte Esterase Urine NEG (NEG); Nitrite Urine NEG (NEG); PH 6.5 (5.0-8.0); Urine Blood NEG (NEG); Urine Ketones NEG (NEG); Urine Protein NEG (NEG-TRACE)
[2021-05-15 08:56] LABS: Alanine Aminotransferase 13 U/L (0-31); Albumin Level 3.7 g/dL (3.5-5.0); Alkaline Phosphatase 89 U/L (39-117); Anion Gap 13 (12-20); Aspartate Amino Transferase 19 U/L (5-31); Bilirubin Total 0.4 mg/dL (0.0-1.0); Blood Urea Nitrogen 23 mg/dL (9-16); Calcium 9.8 mg/dL (8.4-10.2); Carbon Dioxide 24 mmol/L (22-29); Chloride 109 mmol/L (96-108); Cholesterol 160 mg/dL; Estimated Glomerular Filt Rate 55; Glucose Fasting 112 mg/dL (60-99); HDL Cholesterol 51 mg/dL; LDL Cholesterol Calculated 90 mg/dl; Potassium 4.8 mmol/L (3.3-5.1); Sodium 141 mmol/L (135-145); Total Protein 6.7 g/dL (6.5-8.0); Triglycerides 95 mg/dL
[2021-05-15 09:19] LABS: TSH reflex Free T4 3.97 uIU/mL (0.32-4.0); Vitamin D 25-OH Total 71.8 ng/mL (>30)
== END 2021-05-15 07:39 | disposition home or self-care (01) ==
LOC: HO.LAB 07:38
PROVIDERS: PCP Internal Medicine; Visit Provider Internal Medicine
DX: E55.9 Vitamin D deficiency, unspecified (principal); E78.00 Pure hypercholesterolemia, unspecified; I10 Essential (primary) hypertension
CPT/HCPCS: 36415; 80053; 80061; 81003; 82306; 84443; 85025

== ENCOUNTER 2021-10-01 08:29 | Outpatient (REF) | payer MEDICARE, SELFPAY ==
[2021-10-01 08:53] LABS: MANUAL DIFF FLAG NO
[2021-10-01 08:57] LABS: Basophils Absolute Auto 0.1 X10*3/uL (0.0-0.2); Basophils Percent Auto 0.8 % (0-2); Eosinophils Absolute Auto 0.4 X10*3/uL (0.0-0.4); Hematocrit 35.8 % (37.0-47.0); Hemoglobin 11.6 g/dl (12.0-16.0); Imm Gran Abs Auto 0.02 X10*3/uL (0.00-0.03); Imm Gran Pct Auto 0.2 % (0.0-0.4); Lymphocytes Absolute Auto 3.4 X10*3/uL (1.2-4.9); Lymphocytes Percent Auto 37.3 % (20-40); Mean Corpuscular HGB Conc 32.4 g/dl (31.0-35.0); Mean Corpuscular Hemoglobin 29.4 pg (27.0-33.0); Mean Corpuscular Volume 90.6 fL (80.0-98.0); Mean Platelet Volume 11.4 fL (9.4-12.3); Monocytes Absolute Auto 0.9 X10*3/uL (0.1-1.2); Monocytes Percent Auto 9.8 % (2-11); Neutrophils Absolute Auto 4.4 x10*3/uL (2.0-8.3); Neutrophils Percent Auto 47.9 % (45-73); Platelet Count 245 X10*3/uL (160-400); Red Blood Count 3.95 X10*6/uL (4.20-5.50); Red Cell Distribution Width 13.9 % (11.0-16.0); White Blood Count 9.1 X10*3/uL (4.8-10.8)
[2021-10-01 09:08] LABS: Estimated Average Glucose 105 mg/dL; Hemoglobin A1c % 5.3 %
[2021-10-01 09:39] LABS: Appearance Urine Clear; Color Urine Yellow; Glucose Urine UA Negative (Negative); Leukocyte Esterase Urine Negative (Negative); Nitrite Urine Negative (Negative); Urine Blood Negative (Negative); Urine Ketones Negative (Negative); Urine Protein Negative (Neg-Trace)
[2021-10-01 09:46] LABS: Alanine Aminotransferase 10 U/L (0-31); Albumin Level 3.6 g/dL (3.5-5.0); Alkaline Phosphatase 88 U/L (39-117); Anion Gap 16 (12-20); Aspartate Amino Transferase 20 U/L (5-31); Bilirubin Total 0.3 mg/dL (0.0-1.0); Blood Urea Nitrogen 22 mg/dL (9-16); Calcium 9.1 mg/dL (8.4-10.2); Carbon Dioxide 21 mmol/L (22-29); Chloride 108 mmol/L (96-108); Cholesterol 153 mg/dL; Estimated Glomerular Filt Rate 43; Glucose Fasting 109 mg/dL (60-99); HDL Cholesterol 52 mg/dL; LDL Cholesterol Calculated 78 mg/dl; Potassium 4.6 mmol/L (3.3-5.1); Sodium 140 mmol/L (135-145); Total Protein 6.6 g/dL (6.5-8.0); Triglycerides 118 mg/dL
== END 2021-10-01 08:30 | disposition home or self-care (01) ==
LOC: HO.LAB 08:29
PROVIDERS: PCP Internal Medicine; Visit Provider Internal Medicine
DX: I10 Essential (primary) hypertension (principal); E78.00 Pure hypercholesterolemia, unspecified; R73.01 Impaired fasting glucose
CPT/HCPCS: 36415; 80053; 80061; 81003; 83036; 85025

== ENCOUNTER 2021-11-12 09:31 | Outpatient (REF) | payer MEDICARE, SELFPAY | END 2021-11-12 09:32 | disposition home or self-care (01) | LOC: HO.SH 09:31 | PROVIDERS: Visit Provider Internal Medicine | DX: H90.3 Sensorineural hearing loss, bilateral (principal) | CPT/HCPCS: 92557; 92567 ==

== ENCOUNTER 2022-01-13 08:34 | Outpatient (REF) | payer MEDICARE, SELFPAY ==
[2022-01-13 08:53] LABS: MANUAL DIFF FLAG NO
[2022-01-13 09:20] LABS: Basophils Absolute Auto 0.1 X10*3/uL (0.0-0.2); Basophils Percent Auto 0.9 % (0-2); Eosinophils Absolute Auto 0.3 X10*3/uL (0.0-0.4); Imm Gran Abs Auto 0.03 X10*3/uL (0.00-0.03); Imm Gran Pct Auto 0.3 % (0.0-0.4); Lymphocytes Absolute Auto 3.2 X10*3/uL (1.2-4.9); Lymphocytes Percent Auto 28.3 % (20-40); Mean Corpuscular HGB Conc 32.4 g/dl (31.0-35.0); Mean Corpuscular Hemoglobin 29.3 pg (27.0-33.0); Mean Corpuscular Volume 90.5 fL (80.0-98.0); Mean Platelet Volume 11.8 fL (9.4-12.3); Monocytes Absolute Auto 1.1 X10*3/uL (0.1-1.2); Monocytes Percent Auto 9.6 % (2-11); Neutrophils Absolute Auto 6.5 x10*3/uL (2.0-8.3); Neutrophils Percent Auto 57.9 % (45-73); Platelet Count 274 X10*3/uL (160-400); Red Blood Count 4.09 X10*6/uL (4.20-5.50); Red Cell Distribution Width 14.2 % (11.0-16.0); White Blood Count 11.2 X10*3/uL (4.8-10.8)
[2022-01-13 10:07] LABS: Appearance Urine Clear; Color Urine Yellow; Glucose Urine UA Negative (Negative); Leukocyte Esterase Urine Negative (Negative); Nitrite Urine Negative (Negative); Urine Blood Negative (Negative); Urine Ketones Negative (Negative); Urine Protein Negative (Neg-Trace)
[2022-01-13 10:17] LABS: TSH reflex Free T4 5.83 uIU/mL (0.32-4.0); Vitamin D 25-OH Total 84.2 ng/mL (>30)
[2022-01-13 10:28] LABS: Alanine Aminotransferase 13 U/L (0-31); Albumin Level 3.9 g/dL (3.5-5.0); Alkaline Phosphatase 94 U/L (39-117); Anion Gap 16 (12-20); Aspartate Amino Transferase 24 U/L (5-31); Bilirubin Total 0.4 mg/dL (0.0-1.0); Blood Urea Nitrogen 28 mg/dL (9-16); Calcium 9.8 mg/dL (8.4-10.2); Carbon Dioxide 21 mmol/L (22-29); Chloride 108 mmol/L (96-108); Cholesterol 165 mg/dL; Estimated Glomerular Filt Rate 42; Glucose Fasting 99 mg/dL (60-99); HDL Cholesterol 60 mg/dL; LDL Cholesterol Calculated 85 mg/dl; Potassium 4.8 mmol/L (3.3-5.1); Sodium 140 mmol/L (135-145); Triglycerides 102 mg/dL
[2022-01-13 11:33] LABS: Free T4 (Free Thyroxine) 0.79 ng/dL (0.71-1.85)
== END 2022-01-13 08:35 | disposition home or self-care (01) ==
LOC: HO.LAB 08:34
PROVIDERS: PCP Internal Medicine; Visit Provider Internal Medicine
DX: E55.9 Vitamin D deficiency, unspecified (principal); E78.00 Pure hypercholesterolemia, unspecified; I10 Essential (primary) hypertension; R35.0 Frequency of micturition
CPT/HCPCS: 36415; 80053; 80061; 81003; 82306; 84439; 84443; 85025

== ENCOUNTER 2022-05-20 08:02 | Outpatient (REF) | payer MEDICARE, SELFPAY ==
[2022-05-20 08:18] LABS: MANUAL DIFF FLAG NO
[2022-05-20 08:43] LABS: Basophils Absolute Auto 0.1 X10*3/uL (0.0-0.2); Basophils Percent Auto 0.8 % (0-2); Eosinophils Absolute Auto 0.7 X10*3/uL (0.0-0.4); Hematocrit 36.3 % (37.0-47.0); Hemoglobin 11.7 g/dl (12.0-16.0); Imm Gran Abs Auto 0.02 X10*3/uL (0.00-0.03); Imm Gran Pct Auto 0.2 % (0.0-0.4); Lymphocytes Absolute Auto 2.9 X10*3/uL (1.2-4.9); Lymphocytes Percent Auto 26.8 % (20-40); Mean Corpuscular HGB Conc 32.2 g/dl (31.0-35.0); Mean Corpuscular Hemoglobin 28.7 pg (27.0-33.0); Mean Corpuscular Volume 89.2 fL (80.0-98.0); Mean Platelet Volume 11.8 fL (9.4-12.3); Monocytes Absolute Auto 1.1 X10*3/uL (0.1-1.2); Monocytes Percent Auto 9.7 % (2-11); Neutrophils Absolute Auto 6.2 x10*3/uL (2.0-8.3); Neutrophils Percent Auto 56.5 % (45-73); Platelet Count 284 X10*3/uL (160-400); Red Blood Count 4.07 X10*6/uL (4.20-5.50); Red Cell Distribution Width 13.9 % (11.0-16.0); White Blood Count 10.9 X10*3/uL (4.8-10.8)
[2022-05-20 09:04] LABS: Alanine Aminotransferase 11 U/L (0-31); Albumin Level 3.5 g/dL (3.5-5.0); Alkaline Phosphatase 86 U/L (39-117); Anion Gap 15 (12-20); Aspartate Amino Transferase 24 U/L (5-31); Bilirubin Total 0.5 mg/dL (0.0-1.0); Blood Urea Nitrogen 29 mg/dL (9-16); Calcium 9.6 mg/dL (8.4-10.2); Carbon Dioxide 22 mmol/L (22-29); Chloride 109 mmol/L (96-108); Cholesterol 156 mg/dL; Estimated Glomerular Filt Rate 40; Glucose Fasting 119 mg/dL (60-99); HDL Cholesterol 51 mg/dL; LDL Cholesterol Calculated 81 mg/dl; Potassium 4.3 mmol/L (3.3-5.1); Sodium 142 mmol/L (135-145); Total Protein 6.4 g/dL (6.5-8.0); Triglycerides 120 mg/dL
[2022-05-20 09:21] LABS: TSH reflex Free T4 4.35 uIU/mL (0.32-4.0)
[2022-05-20 09:58] LABS: Free T4 (Free Thyroxine) 0.79 ng/dL (0.71-1.85)
[2022-05-20 11:01] LABS: Appearance Urine Clear; Color Urine Yellow; Glucose Urine UA Negative (Negative); Leukocyte Esterase Urine Negative (Negative); Nitrite Urine Negative (Negative); PH 6.5 (5.0-9.0); Specific Gravity - Urine 1.015 (1.005-1.025); Urine Blood Negative (Negative); Urine Ketones Negative (Negative); Urine Protein Negative (Neg-Trace)
== END 2022-05-20 08:03 | disposition home or self-care (01) ==
LOC: HO.LAB 08:02
PROVIDERS: PCP Internal Medicine; Visit Provider Internal Medicine
DX: E78.00 Pure hypercholesterolemia, unspecified (principal); E55.9 Vitamin D deficiency, unspecified; I10 Essential (primary) hypertension; R30.0 Dysuria
CPT/HCPCS: 36415; 80053; 80061; 81003; 82306; 84439; 84443; 85025

== ENCOUNTER 2022-09-22 08:38 | Outpatient (REF) | payer MEDICARE, SELFPAY ==
[2022-09-22 08:55] LABS: MANUAL DIFF FLAG NO
[2022-09-22 09:08] LABS: Basophils Absolute Auto 0.1 X10*3/uL (0.0-0.2); Basophils Percent Auto 0.7 % (0-2); Eosinophils Absolute Auto 0.4 X10*3/uL (0.0-0.4); Eosinophils Percent Auto 4.2 % (0-4); Hematocrit 36.9 % (37.0-47.0); Hemoglobin 11.9 g/dl (12.0-16.0); Imm Gran Abs Auto 0.01 X10*3/uL (0.00-0.03); Imm Gran Pct Auto 0.1 % (0.0-0.4); Lymphocytes Absolute Auto 2.8 X10*3/uL (1.2-4.9); Lymphocytes Percent Auto 28.8 % (20-40); Mean Corpuscular HGB Conc 32.2 g/dl (31.0-35.0); Mean Corpuscular Hemoglobin 29.5 pg (27.0-33.0); Mean Corpuscular Volume 91.6 fL (80.0-98.0); Mean Platelet Volume 11.5 fL (9.4-12.3); Monocytes Absolute Auto 0.9 X10*3/uL (0.1-1.2); Monocytes Percent Auto 9.3 % (2-11); Neutrophils Absolute Auto 5.5 x10*3/uL (2.0-8.3); Neutrophils Percent Auto 56.9 % (45-73); Platelet Count 287 X10*3/uL (160-400); Red Blood Count 4.03 X10*6/uL (4.20-5.50); White Blood Count 9.6 X10*3/uL (4.8-10.8)
[2022-09-22 09:25] LABS: Estimated Average Glucose 105 mg/dL; Hemoglobin A1c % 5.3 %
[2022-09-22 10:41] LABS: Alanine Aminotransferase 6 U/L (0-31); Albumin Level 3.6 g/dL (3.5-5.0); Alkaline Phosphatase 84 U/L (39-117); Anion Gap 15 (12-20); Aspartate Amino Transferase 20 U/L (5-31); Bilirubin Total 0.5 mg/dL (0.0-1.0); Blood Urea Nitrogen 26 mg/dL (9-16); Calcium 9.9 mg/dL (8.4-10.2); Carbon Dioxide 23 mmol/L (22-29); Chloride 109 mmol/L (96-108); Cholesterol 157 mg/dL; Estimated Glomerular Filt Rate 52; Glucose Fasting 103 mg/dL (60-99); HDL Cholesterol 52 mg/dL; LDL Cholesterol Calculated 85 mg/dl; Potassium 4.3 mmol/L (3.3-5.1); Sodium 143 mmol/L (135-145); Triglycerides 103 mg/dL
[2022-09-22 10:47] LABS: TSH reflex Free T4 5.13 uIU/mL (0.32-4.0); Vitamin D 25-OH Total 104.5 ng/mL (>30)
[2022-09-22 11:14] LABS: Appearance Urine Clear; Color Urine Yellow; Glucose Urine UA Negative (Negative); Leukocyte Esterase Urine Moderate (2+) (Negative); Nitrite Urine Negative (Negative); PH 7.5 (5.0-9.0); Specific Gravity - Urine 1.015 (1.005-1.025); UMIC TRIGGER UACC YES; Urine Blood Negative (Negative); Urine Ketones Negative (Negative); Urine Protein Negative (Neg-Trace)
[2022-09-22 11:17] LABS: Bacteria Urine Trace (None Seen); Hyaline Casts Urine 0-2 /LPF (0-2); RBC Urine 0-2 /HPF (0-2); UACC Culture Trigger YES; WBC Urine >50 /HPF (0-5)
[2022-09-22 12:16] LABS: Free T4 (Free Thyroxine) 0.67 ng/dL (0.71-1.85)
== END 2022-09-22 08:39 | disposition home or self-care (01) ==
LOC: HO.LAB 08:38
PROVIDERS: PCP Internal Medicine; Visit Provider Internal Medicine
DX: R73.01 Impaired fasting glucose (principal); I10 Essential (primary) hypertension; E78.00 Pure hypercholesterolemia, unspecified; E55.9 Vitamin D deficiency, unspecified; R30.0 Dysuria
CPT/HCPCS: 36415; 80053; 80061; 81001; 81003; 82306; 83036; 84439; 84443; 85025; 87086; 87088; 87186

== ENCOUNTER 2022-10-23 14:37 | Outpatient (AMB) | payer MEDICARE, SELFPAY ==
[2022-10-23 14:46] VITALS: BP 124/80; PULSE 67; O2SAT 98; BMI 31.9
--- NOTE | 2022-10-23 14:46 | A.OFFPC_ITS ---
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 Required: No Accompanied by: Self / Same As Patient Allergies levofloxacin Allergy (Unknown, Verified 10/23/22 15:36) Unknown penicillin V Allergy (Unknown, Verified 10/23/22 15:36) Unknown Sulfa (Sulfonamide Antibiotics) Allergy (Unknown, Verified 10/23/22 15:36) Unknown Medication List - Last Reconciled 10/23/22 by Duong Ramirez MD aspirin 81 mg PO DAILY cholecalciferol (vitamin D3) 125 mcg PO DAILY 90 days clonazepam 0.5 mg PO DAILY PRN 30 days diltiazem HCl (Cartia XT) 240 mg PO QAM 90 days estradiol 1 mg PO DAILY 30 days hydrochlorothiazide 12.5 mg PO DAILY losartan 50 mg PO DAILY 90 days oxybutynin chloride 5 mg PO BEDTIME 90 days simvastatin 20 mg PO BEDTIME 90 days Tobacco use date assessed: 10/23/22 Fall risk assessment: No Falls in past year Last assessed Fall Risk: 10/23/22 Dental Screening Dental Screen Date: 10/23/22 Did you have a dental visit in the last 12 months?: No Did you have a dental problem in the last 6 months where you did not have access to dental care?: No Was dental information given to patient?: No HPI HTN, hyperlipidemia, IFG, TIA, lumbar DDD HPI Details Patient comes in today for her follow up visit States that she feels okay Still has recurrent low back pain and bilateral sciatica pain but states that her back symptoms are gradually improving again lately and only her right side is bothering her now Denies any recent injury or trauma to her lower back She denies any headaches or dizziness Denies any chest pains, no SOB No nausea/vomiting, no abdominal pain No change in bowel habits noted Had her follow up labs done last month - to discuss her results COUNT INCLUDES [facility] Medical History Acquired hypothyroidism Colonoscopy refused Post-menopausal Transient ischemic attack (TIA) Obesity (BMI 30-39.9) Anxiety GERD without esophagitis Osteopenia Lumbar degenerative disc disease Elevated TSH Vitamin D deficiency Impaired fasting glucose Pure hypercholesterolemia Benign essential hypertension Surgical History History of surgery History of total abdominal hysterectomy and bilateral salpingo-oophorectomy Family History Father Cancer Mother Cancer Hypertension Chronic mental illness Brother No problems noted. Sister No problems noted. Social History Housing: House Alcohol intake: current Alcohol intake frequency: holidays/special occasions only Alcohol type: wine Patient Tobacco Use Status: Never used Tobacco e-Cigarette/Vaping Use: Never Used Second Hand Smoke Exposure: Yes service: No Current occupational status: retired Cognitive needs: No Hearing needs: No Vision needs: Yes Questionnaire PHQ-9 Over the last 2 weeks, how often have you been bothered by any of the following problems? 1. Little interest or pleasure in doing things: not at all 2. Feeling down, depressed, or hopeless: several days 3. Trouble falling or staying asleep, or sleeping too much: not at all 4. Feeling tired or having little energy: several days 5. Poor appetite or overeating: not at all 6. Feeling bad about yourself - or that you are a failure or have let yourself or your family down: not at all 7. Trouble concentrating on things, such as reading the newspaper or watching television: several days 8. Moving or speaking so slowly that other people could have noticed. Or the opposite - being so fidgety or restless that you have been moving around a lot more than usual: several days 9. Thoughts that you would be better off or of hurting yourself in some way: not at all Total score: 4 Depression Screening Interpretation: Positive Depression Screening Follow-up: Existing condition and Declines treatment 97781 - PHQ-9 Billing: Yes Source: Developed by Drs. Daniel Arango, Geeta Gallagher, Milton Adams and colleagues, with an educational rocio from [employer]. Thrive Questionnaire Date Thrive assessed: 10/23/22 I am a: Patient What is your living situation today?: I have a steady place to live Within the past 12 months, did the food you bought not last and you didn't have the money to get more?: Never true Within the past 12 months, did you worry whether your food would run out before you got money to buy more?: Never true Do you have trouble paying for medicines?: No Do you have trouble getting transportation to medical appointments?: No Do you have trouble paying your heating and electricity bill?: No Do you have trouble taking care of your child, family member or friend?: No Do you have trouble with day-to-day activities such as bathing, preparing meals, shopping, managing finances, etc.?: No Are you currently unemployed and looking for a job?: No Are you interested in more education?: No Please select the resources that you would like help with: None Currently or been in a relationship where the following occur: no concerns reported AUDIT C Alcohol Use Questionnaire (AUDIT-C) 1. How often do you have a drink containing alcohol?: Never 3. How often do you have six or more drinks on one occasion?: Never Total Score: 0 Score Reviewed/Action Taken: Yes PAVEL-7 AMB Questionnaire PAVEL-7 Date PAVEL - 7 assessed: 10/23/22 Feeling nervous, anxious, or on edge: 0 = Not at all Not being able to stop or control worryin = Not at all Worrying too much about different things: 0 = Not at all Trouble relaxin = Not at all Being so restless that it is hard to sit still: 0 = Not at all Becoming easily annoyed or irritable: 0 = Not at all Feeling afraid as if something awful might happen: 0 = Not at all Total PAVEL-7 score (0-4 normal; 5-9 mild; 10-14 moderate; 15-21 severe): 0 Source: Developed by Drs. Daniel Arango, Geeta Gallagher, Milton Adams and colleagues, with an educational rocio from [employer]. Review of Systems Const Denies chills, Reports fatigue, Denies fever(s) and Denies headache(s) ENT Denies dysphagia, Denies dizziness, Denies otalgia, Denies headache(s), Denies odynophagia and Denies sore throat Card Denies chest pain, Denies palpitations and Denies dyspnea Resp Denies cough and Denies dyspnea GI Denies abdominal pain, Denies constipation, Denies dysphagia, Denies heartburn, Denies diarrhea, Denies nausea, Denies odynophagia and Denies vomiting Denies difficulty voiding, Denies nocturia and Denies dysuria Musc Reports back pain (over the right side - right-sided sciatica pain ) and Denies numbness Skin/Breast Denies rash Neuro Denies dizziness, Denies headache(s), Denies numbness and Denies paresthesias Endo Reports fatigue and Denies palpitations Physical exam (Primary Care) Vital Signs: Last Vital Signs Pulse 67 10/23/22 14:46 BP 124/80 10/23/22 14:46 Pulse Ox 98 10/23/22 14:46 Oxygen Delivery Method Room Air 10/23/22 14:46 BMI result Body Mass Index 31.9 Tobacco/Smoking Status: Tobacco use Status Tobacco use date assessed 10/23/22 10/23/22 14:58 Patient Tobacco Use Status Never used Tobacco 10/23/22 14:58 e-Cigarette/Vaping Use Never Used 10/23/22 14:58 PHQ-9: PHQ-9 Score PHQ-9: Total score 4 10/23/22 14:58 Depression Screening Interpretation: Positive Depression Screening Follow-up: Existing condition and Declines treatment Thrive Assessment: Date of Thrive Assessment Date Thrive assessed 10/23/22 10/23/22 14:58 Currently or been in a relationship where the following occur: no concerns reported Const General: no acute distress and alert HENMT Ears: TM's normal bilaterally and EAC's normal Throat: Yes posterior oropharynx normal and Yes tonsils normal (no TP congestion noted) Neck Neck: Yes no lymphadenopathy and Yes supple Resp Auscultation: clear to auscultation bilaterally, no rales and no wheezes Cardio Rate: regular rate Rhythm: regular rhythm Heart sounds: no murmurs GI Palpation (GI): Soft to palpation and nontender Auscultation: normal bowel sounds Extrem General: Yes no clubbing, cyanosis or edema Assessment and Plan Assessment & Plan (1) Pure hypercholesterolemia: Code(s): E78.00 - Pure hypercholesterolemia, unspecified Plan: Results of her labs done last month reviewed and discussed with patient Reinforced low cholesterol diet Continue Simvastatin 20 mg QD Will recheck her labs and fasting lipids in 4 months for follow up (2) Benign essential hypertension: Code(s): I10 - Essential (primary) hypertension Plan: Reinforced low sodium diet - goal is systolic BP of at least 140 mm or less Continue Losartan 50 mg QD, Hydrochlorothiazide 12.5 mg QD and Diltiazem ER 240 mg Q AM (3) Transient ischemic attack (TIA): Code(s): G45.9 - Transient cerebral ischemic attack, unspecified Plan: Denies any recurrence of symptoms over the past year Continue anti-platelet Tx with low dose Aspirin 81 mg QD and continue with aggressive risk factor modification, primarily her BP, cholesterol, blood sugar Follow up with neurology as scheduled (4) Impaired fasting glucose: Code(s): R73.01 - Impaired fasting glucose Plan: FBS was at 103 mg/dl and HgbA1c was normal at 5.3% on her labs done last month Reinforced low calorie diet/exercise as tolerated (5) Vitamin D deficiency: Code(s): E55.9 - Vitamin D deficiency, unspecified Plan: Corrected She is advised to HOLD off on taking her Vitamin D3 (2000 units QD) for a few months as her Vitamin D level has been steadily going up over the past year and is now >100 Will recheck her Vitamin D level in 4 months (6) Acquired hypothyroidism: Code(s): E03.9 - Hypothyroidism, unspecified Plan: Her TSH remains elevated but her free T4 level is now low for the very first time on her recent labs Discussed that she now has hypothyroidism - patient does report feeling very fatigued for a few months now Will start her on Levothyroxine 25 mcg QD Will recheck her TFTs in 4 months for follow up (7) Lumbar degenerative disc disease: Code(s): M51.36 - Other intervertebral disc degeneration, lumbar region Plan: Reinforced activity and weight lifting restrictions States that she continues to do the back exercises she was previously taught on a regular basis to help manage her back pain BUT has been experiencing increased pain over her right lower back for a while now Feels that her right lower back symptoms are starting to slowly clear up Is advised to call if her right low back pain persists or gets worse over the next week or so - may need to send her for some imaging studies then (8) Osteopenia: Comment: Baseline BMD done in February 2017 showed (+) osteopenia Code(s): M85.80 - Other specified disorders of bone density and structure, unspecified site Qualifiers: Osteopenia location: unspecified Qualified Code(s): M85.80 - Other specified disorders of bone density and structure, unspecified site Plan: Repeat BMD done in 11/2020 revealed (+) osteopenia with no significant change in BMD from baseline Patient is again advised to continue with daily Vitamin-D and Calcium supplements and to try exercising regularly to help keep up with her BMD (9) GERD without esophagitis: Code(s): K21.9 - Gastro-esophageal reflux disease without esophagitis Plan: Dietary restrictions reinforced Continue Famotidine 20 mg BID as needed (10) Anxiety: Code(s): F41.9 - Anxiety disorder, unspecified Plan: Continue Clonazepam 0.5 mg once a day as needed (11) Obesity (BMI 30-39.9): Code(s): E66.9 - Obesity, unspecified Plan: Reinforced diet/ exercise as tolerated /lose weight Plan Follow up in 4 months Orders: Orders Lipid Panel 4 Months E78.00 - Pure hypercholesterolemia, unspecified Thyroid Stimulating Hormone 4 Months E03.9 - Hypothyroidism, unspecified UA CC w/rflx Micro + Cult 4 Months R30.0 - Dysuria Vitamin D 25-OH Total 4 Months E55.9 - Vitamin D deficiency, unspecified Hemoglobin A1c 4 Months R73.01 - Impaired fasting glucose Free T4 (Free Thyroxine) 4 Months E03.9 - Hypothyroidism, unspecified Comprehensive Starr. Panel Fast 4 Months E78.00 - Pure hypercholesterolemia, unspecified Complete Blood Count Auto Diff 4 Months I10 - Essential (primary) hypertension Medications: New levothyroxine Take on an empty stomach, first thing in the morning, with water. Do not eat or drink anything else for 30 minutes afterwards 25 mcg PO DAILY 30 days 30 tabs 3RF E03.9 - Hypothyroidism, unspecified On Hold cholecalciferol (vitamin D3) Hold Comment: Doctor's Order 125 mcg PO DAILY 90 days 90 caps 3RF Coding Level of Care Code Est Pt Level 4 (04503) Diagnoses Pure hypercholesterolemia E78.00 Benign essential hypertension I10 Transient ischemic attack (TIA) G45.9 Impaired fasting glucose R73.01 Vitamin D deficiency E55.9 Acquired hypothyroidism E03.9 Lumbar degenerative disc disease M51.36 Osteopenia, unspecified location M85.80 Osteopenia location: unspecified GERD without esophagitis K21.9 Anxiety F41.9 Obesity (BMI 30-39.9) E66.9
== END 2022-10-23 16:01 | disposition home or self-care (01) ==
PROVIDERS: PCP Internal Medicine; Visit Provider Internal Medicine
DX: I10 Essential (primary) hypertension (principal); E55.9 Vitamin D deficiency, unspecified; E03.9 Hypothyroidism, unspecified; K21.9 Gastro-esophageal reflux disease without esophagitis; F41.9 Anxiety disorder, unspecified; E78.00 Pure hypercholesterolemia, unspecified; G45.9 Transient cerebral ischemic attack, unspecified; R73.01 Impaired fasting glucose; M51.36 Other intervertebral disc degeneration, lumbar region; M85.80 Other specified disorders of bone density and structure, unspecified site; E66.9 Obesity, unspecified
CPT/HCPCS: 99214

== ENCOUNTER 2023-02-16 08:23 | Outpatient (REF) | payer MEDICARE, SELFPAY ==
[2023-02-16 09:03] LABS: MANUAL DIFF FLAG NO
[2023-02-16 09:36] LABS: Basophils Absolute Auto 0.1 X10*3/uL (0.0-0.2); Basophils Percent Auto 0.7 % (0-2); Eosinophils Absolute Auto 0.4 X10*3/uL (0.0-0.4); Eosinophils Percent Auto 4.5 % (0-4); Hematocrit 35.9 % (37.0-47.0); Hemoglobin 11.5 g/dl (12.0-16.0); Imm Gran Abs Auto 0.03 X10*3/uL (0.00-0.03); Imm Gran Pct Auto 0.3 % (0.0-0.4); Lymphocytes Absolute Auto 2.7 X10*3/uL (1.2-4.9); Lymphocytes Percent Auto 28.7 % (20-40); Mean Corpuscular Volume 90.4 fL (80.0-98.0); Mean Platelet Volume 11.9 fL (9.4-12.3); Monocytes Absolute Auto 0.9 X10*3/uL (0.1-1.2); Monocytes Percent Auto 9.7 % (2-11); Neutrophils Absolute Auto 5.3 x10*3/uL (2.0-8.3); Neutrophils Percent Auto 56.1 % (45-73); Platelet Count 251 X10*3/uL (160-400); Red Blood Count 3.97 X10*6/uL (4.20-5.50); Red Cell Distribution Width 14.3 % (11.0-16.0); White Blood Count 9.5 X10*3/uL (4.8-10.8)
[2023-02-16 10:15] LABS: Estimated Average Glucose 105 mg/dL; Hemoglobin A1c % 5.3 % (<6.0)
[2023-02-16 10:28] LABS: Alanine Aminotransferase 21 U/L (0-31); Albumin Level 3.6 g/dL (3.5-5.0); Alkaline Phosphatase 110 U/L (39-117); Anion Gap 14 (12-20); Aspartate Amino Transferase 34 U/L (5-31); Bilirubin Total 0.3 mg/dL (0.0-1.0); Blood Urea Nitrogen 26 mg/dL (9-16); Calcium 9.8 mg/dL (8.4-10.2); Carbon Dioxide 23 mmol/L (22-29); Chloride 108 mmol/L (96-108); Cholesterol 155 mg/dL (<200); Estimated Glomerular Filt Rate 49; Glucose Fasting 116 mg/dL (60-99); HDL Cholesterol 52 mg/dL (>40); LDL Cholesterol Calculated 75 mg/dL (<100); Potassium 4.4 mmol/L (3.3-5.1); Sodium 141 mmol/L (135-145); Total Protein 7.2 g/dL (6.5-8.0); Triglycerides 141 mg/dL (<150)
[2023-02-16 10:40] LABS: Free T4 (Free Thyroxine) 0.82 ng/dL (0.71-1.85); Thyroid Stimulating Hormone 3.41 uIU/mL (0.32-4.0); Vitamin D 25-OH Total 71.2 ng/mL (>30)
[2023-02-16 11:00] LABS: Appearance Urine Turbid; Color Urine Yellow; Glucose Urine UA Negative (Negative); Leukocyte Esterase Urine Negative (Negative); Nitrite Urine Negative (Negative); UMIC TRIGGER UACC YES; Urine Blood Negative (Negative); Urine Ketones Trace mg/dL (Negative); Urine Protein 30 (1+) mg/dL (Neg-Trace)
[2023-02-16 11:02] LABS: Bacteria Urine 4+ (None Seen); Hyaline Casts Urine 0-2 /LPF (0-2); Squamous Epithelial Cell Urine >20 /HPF (0-2); WBC Urine 0-5 /HPF (0-5)
== END 2023-02-16 08:24 | disposition home or self-care (01) ==
LOC: HO.LAB 08:23
PROVIDERS: PCP Internal Medicine; Visit Provider Internal Medicine
DX: E78.00 Pure hypercholesterolemia, unspecified (principal); I10 Essential (primary) hypertension; E03.9 Hypothyroidism, unspecified; R73.01 Impaired fasting glucose; E55.9 Vitamin D deficiency, unspecified; R30.0 Dysuria
CPT/HCPCS: 36415; 80053; 80061; 81001; 81003; 82306; 83036; 84439; 84443; 85025

== ENCOUNTER 2023-02-22 12:21 | Outpatient (AMB) | payer MEDICARE, SELFPAY ==
[2023-02-22 12:33] VITALS: BP 126/82; PULSE 68; O2SAT 98; BMI 31.9
--- NOTE | 2023-02-22 12:33 | MHC.PC.OV ---
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 Accompanied by: Self / Same As Patient Allergies levofloxacin Allergy (Unknown, Verified 02/22/23 12:49) Unknown penicillin V Allergy (Unknown, Verified 02/22/23 12:49) Unknown Sulfa (Sulfonamide Antibiotics) Allergy (Unknown, Verified 02/22/23 12:49) Unknown Medication List - Last Reconciled 02/22/23 by Duong Ramirez MD aspirin 81 mg PO DAILY cholecalciferol (vitamin D3) 125 mcg PO DAILY 90 days clonazepam 0.5 mg PO DAILY PRN 30 days diltiazem HCl (Cartia XT) 240 mg PO QAM 90 days estradiol 1 mg PO DAILY 30 days hydrochlorothiazide 12.5 mg PO DAILY levothyroxine 25 mcg PO DAILY 30 days losartan 50 mg PO DAILY 90 days oxybutynin chloride 5 mg PO BEDTIME 90 days simvastatin 20 mg PO BEDTIME 90 days Tobacco use date assessed: 02/22/23 Fall risk assessment: No Falls in past year Last assessed Fall Risk: 02/22/23 Dental Screening Dental Screen Date: 02/22/23 Did you have a dental visit in the last 12 months?: No Did you have a dental problem in the last 6 months where you did not have access to dental care?: No Was dental information given to patient?: No HPI HTN, hyperlipidemia, hypothyroidism, IFG HPI Details Patient comes in today for her follow up visit States that she feels okay and that her previous right-sided sciatica pain have been much better controlled lately She denies any headaches or dizziness Denies any chest pains, no SOB No nausea/vomiting, no abdominal pain No change in bowel habits noted Had her follow up labs done last week - to discuss her results [facility] Medical History Acquired hypothyroidism Colonoscopy refused Post-menopausal Transient ischemic attack (TIA) Obesity (BMI 30-39.9) Anxiety GERD without esophagitis Osteopenia Lumbar degenerative disc disease Elevated TSH Vitamin D deficiency Impaired fasting glucose Pure hypercholesterolemia Benign essential hypertension Surgical History History of surgery History of total abdominal hysterectomy and bilateral salpingo-oophorectomy Family History Father Cancer Mother Cancer Hypertension Chronic mental illness Brother No problems noted. Sister No problems noted. Social History Housing: House Alcohol intake: current Alcohol intake frequency: holidays/special occasions only Alcohol type: wine Patient Tobacco Use Status: Never used Tobacco e-Cigarette/Vaping Use: Never Used Second Hand Smoke Exposure: Yes service: No Current occupational status: retired Cognitive needs: No Hearing needs: No Vision needs: Yes Questionnaire PHQ-9 Over the last 2 weeks, how often have you been bothered by any of the following problems? 1. Little interest or pleasure in doing things: not at all 2. Feeling down, depressed, or hopeless: several days 3. Trouble falling or staying asleep, or sleeping too much: not at all 4. Feeling tired or having little energy: several days 5. Poor appetite or overeating: not at all 6. Feeling bad about yourself - or that you are a failure or have let yourself or your family down: not at all 7. Trouble concentrating on things, such as reading the newspaper or watching television: several days 8. Moving or speaking so slowly that other people could have noticed. Or the opposite - being so fidgety or restless that you have been moving around a lot more than usual: several days 9. Thoughts that you would be better off or of hurting yourself in some way: not at all Total score: 4 Depression Screening Interpretation: Positive Depression Screening Follow-up: Existing condition and Declines treatment (feels that her symptoms are more due to her anxiety) Depression Screening Done: Yes [id number] - PHQ-9 Billing: Yes Source: Developed by Drs. Daniel Arango, Geeta Gallagher, Milton Adams and colleagues, with an educational rocio from [employer]. Thrive Questionnaire Date Thrive assessed: 02/22/23 I am a: Patient What is your living situation today?: I have a steady place to live Within the past 12 months, did the food you bought not last and you didn't have the money to get more?: Never true Within the past 12 months, did you worry whether your food would run out before you got money to buy more?: Never true Do you have trouble paying for medicines?: No Do you have trouble getting transportation to medical appointments?: No Do you have trouble paying your heating and electricity bill?: No Do you have trouble taking care of your child, family member or friend?: No Do you have trouble with day-to-day activities such as bathing, preparing meals, shopping, managing finances, etc.?: No Are you currently unemployed and looking for a job?: No Are you interested in more education?: No Please select the resources that you would like help with: None Currently or been in a relationship where the following occur: no concerns reported AUDIT C Alcohol Use Questionnaire (AUDIT-C) 1. How often do you have a drink containing alcohol?: Never 3. How often do you have six or more drinks on one occasion?: Never Total Score: 0 Score Reviewed/Action Taken: Yes PAVEL-7 AMB Questionnaire PAVEL-7 Date PAVEL - 7 assessed: 02/22/23 Feeling nervous, anxious, or on edge: 0 = Not at all Not being able to stop or control worryin = Not at all Worrying too much about different things: 0 = Not at all Trouble relaxin = Not at all Being so restless that it is hard to sit still: 0 = Not at all Becoming easily annoyed or irritable: 0 = Not at all Feeling afraid as if something awful might happen: 0 = Not at all Total PAVEL-7 score (0-4 normal; 5-9 mild; 10-14 moderate; 15-21 severe): 0 Source: Developed by Drs. Daniel Arango, Geeta Gallagher, Milton Adams and colleagues, with an educational rocio from [employer]. Review of Systems Const Reports fatigue, Denies fever(s) and Denies headache(s) ENT Denies dysphagia, Denies dizziness, Denies otalgia, Denies headache(s), Denies odynophagia and Denies sore throat Card Denies chest pain, Denies palpitations and Denies dyspnea Resp Denies cough and Denies dyspnea GI Denies abdominal pain, Denies constipation, Denies dysphagia, Denies heartburn, Denies diarrhea, Denies nausea, Denies odynophagia and Denies vomiting Denies difficulty voiding, Denies nocturia and Denies dysuria Musc Reports back pain (on and off over the right side but states they have been very mild) and Denies numbness Skin/Breast Denies rash Neuro Denies dizziness, Denies headache(s), Denies numbness and Denies paresthesias Psych Reports anxiety Endo Reports fatigue and Denies palpitations Physical exam (Primary Care) Vital Signs: Last Vital Signs Pulse 68 02/22/23 12:33 BP 126/82 02/22/23 12:33 Pulse Ox 98 02/22/23 12:33 Oxygen Delivery Method Room Air 02/22/23 12:33 BMI result Body Mass Index 31.9 Tobacco/Smoking Status: Tobacco use Status Tobacco use date assessed 02/22/23 02/22/23 12:42 Patient Tobacco Use Status Never used Tobacco 02/22/23 12:42 e-Cigarette/Vaping Use Never Used 02/22/23 12:42 PHQ-9: PHQ-9 Score PHQ-9: Total score 4 02/22/23 12:42 Depression Screening Interpretation: Positive Depression Screening Follow-up: Existing condition and Declines treatment (feels that her symptoms are more due to her anxiety) Thrive Assessment: Date of Thrive Assessment Date Thrive assessed 02/22/23 02/22/23 12:42 Currently or been in a relationship where the following occur: no concerns reported Const General: no acute distress and alert HENMT Ears: TM's normal bilaterally and EAC's normal Throat: Yes posterior oropharynx normal and Yes tonsils normal (no TP congestion noted) Neck Neck: Yes no lymphadenopathy and Yes supple Resp Auscultation: clear to auscultation bilaterally, no rales and no wheezes Cardio Rate: regular rate Rhythm: regular rhythm Heart sounds: no murmurs GI Palpation (GI): Soft to palpation and nontender Auscultation: normal bowel sounds Back/Spine/Pelvis Thoracic/Lumbar Spine: No lumbar spinal tenderness Skin Rashes: no rashes Extrem General: Yes no clubbing, cyanosis or edema Results Reviewed Results Reviewed: Laboratory Tests 02/16/23 02/16/23 09:01 09:30 WBC 9.5 Hgb 11.5 L Hct 35.9 L Plt Count 251 Sodium 141 Potassium 4.4 Creatinine 1.07 Estimated GFR 49 Fasting Glucose 116 H Hemoglobin A1c % 5.3 Calcium 9.8 AST 34 H ALT 21 Triglycerides 141 Cholesterol 155 LDL Cholesterol, Calc 75 HDL Cholesterol 52 25-OH Vitamin D Total 71.2 TSH 3.41 Free T4 0.82 Ur Specific [place] 1.020 Urine Protein 30 (1+) H Urine Glucose (UA) Negative Urine Blood Negative Urine Nitrite Negative Ur Leukocyte Esterase Negative Assessment and Plan Assessment & Plan (1) Benign essential hypertension: Code(s): I10 - Essential (primary) hypertension Plan: Reinforced low sodium diet - goal is systolic BP of at least 140 mm or less Continue Losartan 50 mg QD, Hydrochlorothiazide 12.5 mg QD and Diltiazem ER 240 mg Q AM (2) Pure hypercholesterolemia: Code(s): E78.00 - Pure hypercholesterolemia, unspecified Plan: Results of her labs done last week reviewed and discussed with patient Reinforced low cholesterol diet Continue Simvastatin 20 mg QD Will recheck her labs and fasting lipids in 4 months for follow up (3) Transient ischemic attack (TIA): Code(s): G45.9 - Transient cerebral ischemic attack, unspecified Plan: Denies any recurrence of symptoms over the past year Continue anti-platelet Tx with low dose Aspirin 81 mg QD and with aggressive risk factor modification, primarily control of her BP, cholesterol, blood sugar Follow up with neurology as scheduled (4) Impaired fasting glucose: Code(s): R73.01 - Impaired fasting glucose Plan: HgbA1c remains normal at 5.3% on her labs done last week Reinforced low calorie diet/exercise as tolerated (5) Vitamin D deficiency: Code(s): E55.9 - Vitamin D deficiency, unspecified Plan: Corrected She has been advised to HOLD off on taking her Vitamin D3 (2000 units QD) for a few months as her Vitamin D level has been steadily going up over the past year and is now >100 Repeat Vitamin D level recently is normal at 71 Have instructed patient to go back on her Vitamin D3 2000 units but only take it twice a week Will recheck her Vitamin D level in 4 months (6) Acquired hypothyroidism: Code(s): E03.9 - Hypothyroidism, unspecified Plan: Her TSH and free T4 level are now both normal on her recent labs Continue Levothyroxine 25 mcg QD Will recheck her TFTs in 4 months for follow up (7) Lumbar degenerative disc disease: Code(s): M51.36 - Other intervertebral disc degeneration, lumbar region Plan: Reinforced activity and weight lifting restrictions States that she continues to do the back exercises she was previously taught on a regular basis to help manage her back pain and her lower back symptoms have been much better controlled lately (8) Osteopenia: Comment: Baseline BMD done in February 2017 showed (+) osteopenia Code(s): M85.80 - Other specified disorders of bone density and structure, unspecified site Qualifiers: Osteopenia location: unspecified Qualified Code(s): M85.80 - Other specified disorders of bone density and structure, unspecified site Plan: Repeat BMD done in 11/2020 revealed (+) osteopenia with no significant change in BMD from baseline Patient is again advised to continue with her Vitamin-D and Calcium supplements as instructed and to try exercising regularly to help keep up with her BMD Will repeat her BMD when she comes in for her annual physical exam in the spring (9) GERD without esophagitis: Code(s): K21.9 - Gastro-esophageal reflux disease without esophagitis Plan: Dietary restrictions reinforced Continue Famotidine 20 mg BID as needed (10) Anxiety: Code(s): F41.9 - Anxiety disorder, unspecified Plan: Continue Clonazepam 0.5 mg once a day as needed (11) Obesity (BMI 30-39.9): Code(s): E66.9 - Obesity, unspecified Plan: Reinforced diet/ exercise as tolerated /lose weight Plan To return as scheduled in May 2023 for her annual physical examination Orders: Orders Comprehensive Abbott. Panel Fast 05/21/23 E78.00 - Pure hypercholesterolemia, unspecified Thyroid Stimulating Hormone 05/21/23 E03.9 - Hypothyroidism, unspecified Hemoglobin A1c 05/21/23 R73.01 - Impaired fasting glucose Complete Blood Count Auto Diff 05/21/23 I10 - Essential (primary) hypertension Lipid Panel 05/21/23 E78.00 - Pure hypercholesterolemia, unspecified Free T4 (Free Thyroxine) 05/21/23 E03.9 - Hypothyroidism, unspecified Vitamin D 25-OH Total 05/21/23 E55.9 - Vitamin D deficiency, unspecified UA CC w/rflx Micro + Cult 05/21/23 R30.0 - Dysuria Coding Level of Care Code Est Pt Level 4 (97251) Diagnoses Benign essential hypertension I10 Pure hypercholesterolemia E78.00 Transient ischemic attack (TIA) G45.9 Impaired fasting glucose R73.01 Vitamin D deficiency E55.9 Acquired hypothyroidism E03.9 Lumbar degenerative disc disease M51.36 Osteopenia, unspecified location M85.80 Osteopenia location: unspecified GERD without esophagitis K21.9 Anxiety F41.9 Obesity (BMI 30-39.9) E66.9
== END 2023-02-22 13:09 | disposition home or self-care (01) ==
PROVIDERS: PCP Internal Medicine; Visit Provider Internal Medicine
DX: I10 Essential (primary) hypertension (principal); E78.00 Pure hypercholesterolemia, unspecified; E66.9 Obesity, unspecified; Z68.31 Body mass index [BMI] 31.0-31.9, adult; G45.9 Transient cerebral ischemic attack, unspecified; R73.01 Impaired fasting glucose; E55.9 Vitamin D deficiency, unspecified; E03.9 Hypothyroidism, unspecified; M51.36 Other intervertebral disc degeneration, lumbar region; M85.80 Other specified disorders of bone density and structure, unspecified site; K21.9 Gastro-esophageal reflux disease without esophagitis; F41.9 Anxiety disorder, unspecified
CPT/HCPCS: 99214

== ENCOUNTER 2023-03-02 09:28 | Emergency (ER) | payer MEDICARE, SELFPAY ==
--- NOTE | ~2023-03-02 | XR_ITS ---
EXAMINATION: XR ABDOMEN KUB CLINICAL INDICATION: Constipation, abdominal pain COMPARISON: KUB 02/10/2010. TECHNIQUE: AP view of the abdomen. FINDINGS: The bowel gas pattern is normal with no evidence of ileus or obstruction. There is a radiopaque density in the right upper quadrant question gallstone. There are several phleboliths in the pelvis. No organomegaly. There is moderate levoscoliosis dorsolumbar junction with moderate degenerative disc changes and facet joint arthropathy at the L1-L2 disc level. XR/XR KUB IMPRESSION: 1. Moderate levoscoliosis dorsolumbar junction with degenerative disc changes and facet joint arthropathy at the L1-L2 disc level. 2. Suspect right upper quadrant gallstone.
[2023-03-02 09:36] VITALS: BP 148/57; PULSE 81; RESP 17; TEMP 35.9; O2SAT 98; BMI 32.7
[2023-03-02 10:51] LABS: MANUAL DIFF FLAG NO
[2023-03-02 10:54] LABS: Appearance Urine Cloudy; Color Urine Yellow; Glucose Urine UA Negative (Negative); Leukocyte Esterase Urine Negative (Negative); Nitrite Urine Negative (Negative); Specific Gravity - Urine 1.015 (1.005-1.025); Urine Blood Negative (Negative); Urine Ketones Negative (Negative); Urine Protein Negative (Neg-Trace)
[2023-03-02 10:56] LABS: Basophils Absolute Auto 0.1 X10*3/uL (0.0-0.2); Basophils Percent Auto 0.6 % (0-2); Eosinophils Absolute Auto 0.2 X10*3/uL (0.0-0.4); Eosinophils Percent Auto 1.3 % (0-4); Hematocrit 38.2 % (37.0-47.0); Hemoglobin 12.4 g/dl (12.0-16.0); Imm Gran Abs Auto 0.04 X10*3/uL (0.00-0.03); Imm Gran Pct Auto 0.3 % (0.0-0.4); Lymphocytes Absolute Auto 1.9 X10*3/uL (1.2-4.9); Lymphocytes Percent Auto 14.8 % (20-40); Mean Corpuscular HGB Conc 32.5 g/dl (31.0-35.0); Mean Corpuscular Hemoglobin 29.5 pg (27.0-33.0); Mean Platelet Volume 11.3 fL (9.4-12.3); Monocytes Absolute Auto 1.1 X10*3/uL (0.1-1.2); Monocytes Percent Auto 8.1 % (2-11); Neutrophils Absolute Auto 9.7 x10*3/uL (2.0-8.3); Neutrophils Percent Auto 74.9 % (45-73); Platelet Count 271 X10*3/uL (160-400)
[2023-03-02 11:07] LABS: Alanine Aminotransferase 11 U/L (0-31); Albumin Level 3.7 g/dL (3.5-5.0); Alkaline Phosphatase 95 U/L (39-117); Anion Gap 15 (12-20); Aspartate Amino Transferase 21 U/L (5-31); Bilirubin Direct 0.1 mg/dL (0.0-0.5); Bilirubin Total 0.3 mg/dL (0.0-1.0); Blood Urea Nitrogen 18 mg/dL (9-16); Calcium 9.8 mg/dL (8.4-10.2); Carbon Dioxide 22 mmol/L (22-29); Chloride 108 mmol/L (96-108); Creatinine Clr Calc Pharmacy 35.3; Estimated Glomerular Filt Rate 48; Glucose Random 109 mg/dL (60-115); Lipase 7 U/L (8-78); Potassium 4.5 mmol/L (3.3-5.1); Sodium 140 mmol/L (135-145); Total Protein 7.3 g/dL (6.5-8.0)
[2023-03-02 11:12] LABS: Bacteria Urine 2+ (None Seen); RBC Urine 0-2 /HPF (0-2); WBC Urine 0-5 /HPF (0-5)
--- NOTE | 2023-03-02 12:09 | ED_ITS ---
HPI - General Adult General Chief complaint: General Medical Stated complaint: Constipation Time Seen by Provider: 03/02/23 12:09 Source: patient and family (patient's ) Mode of arrival: ambulatory Limitations: no limitations History of Present Illness HPI narrative: Patient is an 82 year old assigned female at with a history of HTN presenting to the emergency department today with constipation. Patient states that she has not been able to have a bowel movement when trying for 3 days. Patient states that when she stands and isn't pushing, some stool comes out and into her underwear. Patient denies any dizziness, lightheadedness, abdominal pain, nausea, vomiting, fever, chills, blurry vision, double vision, loss of vision, chest pain, difficulty breathing, shortness of breath, back pain, night sweats, pain with urination, increased urinary frequency, increased urinary urgency, blood in her urine or stool, syncope or a near syncopal episode, recent trauma or falls, bladder incontinence, bladder retention, or any other complaints at this time. Onset (ago): day(s) (3) Severity: mild Severity scale (1-10): 2 Relieving factors: none Exacerbating factors: none Associated symptoms: denies other symptoms Treatments prior to arrival: none Related Data Previous Rx's Medication Instructions Recorded aspirin 81 mg tablet,delayed 81 mg PO DAILY #90 tabs 05/29/20 release cholecalciferol (vitamin D3) 125 125 mcg PO DAILY 90 days #90 caps 09/04/22 mcg (5,000 unit) capsule losartan 50 mg tablet 50 mg PO DAILY 90 days #90 tabs 09/04/22 simvastatin 20 mg tablet 20 mg PO BEDTIME 90 days #90 tabs 11/05/22 oxybutynin chloride 5 mg tablet 5 mg PO BEDTIME 90 days #90 tabs 12/05/22 diltiazem HCl 240 mg 240 mg PO QAM 90 days #90 caps 12/10/22 capsule,extended release 24 hr (Cartia XT) hydrochlorothiazide 12.5 mg capsule 12.5 mg PO DAILY #90 caps 02/03/23 estradiol 1 mg tablet 1 mg PO DAILY 30 days #90 tabs 02/04/23 levothyroxine 25 mcg tablet 25 mcg PO DAILY 30 days #30 tabs 02/13/23 clonazepam 0.5 mg tablet 0.5 mg PO DAILY PRN anxiety 30 02/16/23 days #30 tabs Allergies Allergy/AdvReac Type Severity Reaction Status Date / Time levofloxacin Allergy Unknown Unknown Verified 02/22/23 12:49 penicillin V Allergy Unknown Unknown Verified 02/22/23 12:49 Sulfa (Sulfonamide Allergy Unknown Unknown Verified 02/22/23 12:49 Antibiotics) Review of Systems 2 Constitutional: Constitutional: Reports no additional constitutional complaints, Denies chills, Denies fever(s) and Denies night sweats Eyes: Eyes: Reports no additional eye complaints, Denies blurry vision, Denies change in vision, Denies diplopia, Denies eye discharge, Denies loss of vision and Denies eye pain ENT: Denies dizziness Cardiovascular: Cardiovascular: Reports no additional cardiovascular complaints, Denies chest pain, Denies lightheadedness, Denies Loss of Consciousness and Denies dyspnea Respiratory: Respiratory: Reports no additional respiratory complaints and Denies dyspnea Gastrointestinal: Gastrointestinal: Reports no additional gastrointestinal complaints, Denies abdominal pain, Denies melena, Denies hematochezia, Reports change in bowel habits, Reports change in stool character and Reports constipation Genitourinary: Genitourinary: Denies hematuria, Denies urinary frequency, Denies dysuria, Denies urinary incontinence, Denies urinary hesitancy and Denies urinary urgency Musculoskeletal: Musculoskeletal: Reports no additional musculoskeletal complaints, Denies numbness and Denies tingling Neurologic: Denies dizziness, Denies loss of vision, Denies numbness and Denies tingling Psychiatric: Psychiatric: Reports no additional psychiatric complaints Endocrine: Endocrine: Reports no additional endocrine complaints Hematologic/Lymphatic: Hematologic/Lymphatic: Reports no additional hematologic/lymphatic complaints Allergic/Immunologic: Allergic/Immunologic: Reports no additional allergic/immunologic complaints PMFSH Past Medical History Attestation statement: The following information was validated with the patient. (patient's validated all information) Source: old records reviewed, obtained from family (patient's provided additional history and confirmed the history provided by the patient.) and nursing notes reviewed Onset Date is defined in the Problem List Problems that require an onset date and time if occurred within 24 hrs of arrival to the ED Aortic Dissection and Rupture; Neurologic impairment; Cardiopulmonary Arrest; Endotracheal Intubation; Insertion or Replacement of Mechanical Circulatory Assist Device Medical History Medicare annual wellness visit, subsequent Adult general medical exam Obesity (BMI 30-39.9) Elevated TSH Impaired fasting glucose Acquired hypothyroidism Colonoscopy refused Post-menopausal Transient ischemic attack (TIA) Anxiety GERD without esophagitis Osteopenia Lumbar degenerative disc disease Vitamin D deficiency Pure hypercholesterolemia Benign essential hypertension Surgical History History of surgery History of total abdominal hysterectomy and bilateral salpingo-oophorectomy Family History Family History Father Cancer Mother Cancer Hypertension Chronic mental illness Brother No problems noted. Sister No problems noted. Social History Social History Housing: House Alcohol intake: current Alcohol intake frequency: holidays/special occasions only Alcohol type: wine Patient Tobacco Use Status: Never used Tobacco Smoked in Last 30 Days: No e-Cigarette/Vaping Use: Never Used Second Hand Smoke Exposure: Yes Use of substances other than those prescribed or required for medical reasons: No Advance Directives: No Advance Directives Information Provided: Yes service: No Current occupational status: retired Cognitive needs: No Hearing needs: No Vision needs: Yes Physical Exam ED Vital Signs: Vital Signs - 24 hr 03/02/23 09:36 03/02/23 12:49 Temperature 96.6 F L Pulse Rate 81 68 Respiratory Rate 17 16 Blood Pressure 148/57 H 125/45 L Pulse Oximetry 98 98 Oxygen Delivery Method Room Air Room Air BMI result Body Mass Index 32.7 Const General: cooperative, no acute distress, alert and awake Nutritional Appearance: well nourished Orientation/consciousness: patient oriented x3 Limitations: no limitations HENMT Head: Yes normal to inspection and Yes atraumatic Ears: hearing grossly normal bilaterally and external ears normal General nose exam: Normal external nose present, no nasal discharge noted and no epistaxis Face and sinus: Yes normal facial exam, No abrasion and No laceration Mouth: Normal oral and palatal mucosa present, no drooling and no muffled voice Eyes General: appearance normal, both eyes and all related structures Periorbital: periorbital findings normal Eyelids: Yes eyelids normal Conjunctivae: conjunctivae normal Pupils: Equal, round and reactive pupils present EOM: EOMs intact bilaterally Neck Neck: Yes normal visual inspection, Yes full ROM and Yes no lymphadenopathy Chest Chest palpation & inspection: normal inspection of the chest Resp Effort & Inspection: normal respiratory effort and able to speak in complete sentences GI Inspection: Yes normal to inspection Palpation (GI): Soft to palpation, not firm, nontender, no guarding and not rigid Neuro General: patient oriented x3 and moves all extremities Cranial nerves: Yes Equal, round and reactive pupils present Cognition (Neuro): normal cognition Motor exam (neuro): 5/5 motor strength present throughout Sensory Exam: Normal double simultaneous stimulation for sensation Coordination: [id number] test normal Extrem General: Yes normal to inspection, Yes full ROM and Yes capillary refill normal Psych Appearance: grossly normal Mental Status: mental status grossly normal Affect: normal affect Attitude: cooperative Thought process: Normal thought process present Thought content: Normal thought content present Insight: Good insight present (Psych) Medical Decision Making Medical Decision Making MDM Narrative: Patient is an 82 year old assigned female at with a history of HTN presenting to the emergency department today with constipation. Patient's physical exam was unremarkable. Patient's blood work was showed a mild elevation of WBCs at 13 which I attribute to a stress reaction. Patient's urine showed a possible urinary tract infection however, patient has no complaints at this time. Will await culture before initiating treatment. Patient's KUB x-ray showed no acute process and no evidence of fecal impaction. I explained my physical exam findings as well as all test results to the patient and the patient's . I answered all questions asked by the patient and the patient's . I stressed the importance of the patient taking her medication as prescribed. I stressed the importance of the patient following up with her primary care provider and a GI specialist. I stressed the importance of the patient returning to the emergency department immediately if her symptoms were to worsen or if she were to develop any dizziness, shortness of breath, difficulty breathing, chest pain, blurry vision, loss of vision, nausea, vomiting, abdominal pain, fever, chills, back pain, or any other complaints. Patient and the patient's verbalized agreement and understanding with this treatment plan and discharge. Differential Diagnosis Differential Diagnoses: The differential diagnosis associated with the presentation includes Constipation Fecal impaction Admission/Observation Consideration of admission/observation: Escalation of care including admission/observation considered Patient would have been admitted to the hospital had her work up had any findings where hospital admission was appropriate and her clinical presentation warranted hospital admission. Lab Data [facility] Lab Attestation statement: I reviewed the patient's lab results. My interpretation of these results are in the MDM Rationale portion of this note. 03/02/23 10:45 03/02/23 10:45 Labs: Lab Results 03/02/23 Range/Units 10:45 WBC 13.0 H (4.8-10.8) X10*3/uL RBC 4.20 (4.20-5.50) X10*6/uL Hgb 12.4 (12.0-16.0) g/dl Hct 38.2 (37.0-47.0) % MCV 91.0 (80.0-98.0) fL MCH 29.5 (27.0-33.0) pg MCHC 32.5 (31.0-35.0) g/dl RDW 14.0 (11.0-16.0) % Plt Count 271 (160-400) X10*3/uL MPV 11.3 (9.4-12.3) fL Immature Gran % (Auto) 0.3 (0.0-0.4) % Neut % (Auto) 74.9 H (45-73) % Lymph % (Auto) 14.8 L (20-40) % [place] % (Auto) 8.1 (2-11) % Eos % (Auto) 1.3 (0-4) % Baso % (Auto) 0.6 (0-2) % Lymph # (Auto) 1.9 (1.2-4.9) X10*3/uL [place] # (Auto) 1.1 (0.1-1.2) X10*3/uL Eos # (Auto) 0.2 (0.0-0.4) X10*3/uL Baso # (Auto) 0.1 (0.0-0.2) X10*3/uL Abs Immat Gran (auto) 0.04 H (0.00-0.03) X10*3/uL Absolute Neuts (auto) 9.7 H (2.0-8.3) x10*3/uL Absolute Nucleated RBC 0.000 (0.0-0.012) X10*3/uL Nucleated RBC % (auto) 0.0 (0.0-0.2) /100WBC Sodium 140 (135-145) mmol/L Potassium 4.5 (3.3-5.1) mmol/L Chloride 108 (96-108) mmol/L Carbon Dioxide 22 (22-29) mmol/L Anion Gap 15 (12-20) BUN 18 H (9-16) mg/dL Creatinine 1.09 (0.5-1.4) mg/dL Estim Creat Clear Calc 35.3 Estimated GFR 48 Random Glucose 109 (60-115) mg/dL Calcium 9.8 (8.4-10.2) mg/dL Total Bilirubin 0.3 (0.0-1.0) mg/dL Direct Bilirubin 0.1 (0.0-0.5) mg/dL AST 21 (5-31) U/L ALT 11 (0-31) U/L Alkaline Phosphatase 95 (39-117) U/L Total Protein 7.3 (6.5-8.0) g/dL Albumin 3.7 (3.5-5.0) g/dL Lipase 7 L (8-78) U/L Urine Color Yellow Urine Appearance Cloudy Urine pH 6.0 (5.0-9.0) Ur Specific [place] 1.015 (1.005-1.025) Urine Protein Negative (Neg-Trace) mg/dL Urine Glucose (UA) Negative (Negative) mg/dL Urine Ketones Negative (Negative) mg/dL Urine Blood Negative (Negative) Urine Nitrite Negative (Negative) Ur Leukocyte Esterase Negative (Negative) Urine RBC 0-2 (0-2) /HPF Urine WBC 0-5 (0-5) /HPF Ur Squamous Epith Cells 11-20 (0-2) /HPF Urine Bacteria 2+ (None Seen) Hyaline Casts 3-5 (0-2) /LPF Independent Interpretation I performed an independent interpretation of an: Plain X-Ray Interpretation: My interpretation is in agreement with the radiologist's impression of this imaging study. - EXAMINATION: XR ABDOMEN KUB CLINICAL INDICATION: Constipation, abdominal pain COMPARISON: KUB 02/10/2010. TECHNIQUE: AP view of the abdomen. FINDINGS: The bowel gas pattern is normal with no evidence of ileus or obstruction. There is a radiopaque density in the right upper quadrant question gallstone. There are several phleboliths in the pelvis. No organomegaly. There is moderate levoscoliosis dorsolumbar junction with moderate degenerative disc changes and facet joint arthropathy at the L1-L2 disc level. XR/XR KUB IMPRESSION: 1. Moderate levoscoliosis dorsolumbar junction with degenerative disc changes and facet joint arthropathy at the L1-L2 disc level. 2. Suspect right upper quadrant gallstone. Dictated By: Sudheer Newton MD Signed By: Electronically signed by Sudheer Newton MD 03/02/23 4929 Radiology Impression Discussion of test interpretation with radiology: I have reviewed the radiologist's reading. Independent Historian Clinical information obtained from an independent historian. History obtained from or confirmed by: Spouse (patient's provided additional history and confirmed the history provided by the patient.) Discharge Plan Discharge Clinical Impression: Constipation Patient Disposition: Home, Self-Care Instructions: Constipation (DC) Additional Instructions: Follow up with your primary care provider and a GI specialist. Return to the emergency department immediately if your symptoms worsen or if you develop any dizziness, shortness of breath, difficulty breathing, chest pain, blurry vision, loss of vision, nausea, vomiting, abdominal pain, fever, chills, back pain, or any other complaints. Prescriptions: No Action losartan 50 mg tablet 50 mg PO DAILY 90 Days Qty: 90 1RF cholecalciferol (vitamin D3) 125 mcg (5,000 unit) capsule 125 mcg PO DAILY 90 Days Qty: 90 3RF Hold Instructions: Doctor's Order simvastatin 20 mg tablet 20 mg PO BEDTIME 90 Days Qty: 90 1RF oxybutynin chloride 5 mg tablet 5 mg PO BEDTIME 90 Days Qty: 90 1RF diltiazem HCl [Cartia XT] 240 mg capsule,extended release 24hr 240 mg PO QAM 90 Days Qty: 90 1RF hydrochlorothiazide 12.5 mg capsule 12.5 mg PO DAILY Qty: 90 0RF estradiol 1 mg tablet 1 mg PO DAILY 30 Days Qty: 90 1RF Rx Instructions: off 1 week; repeat cycle levothyroxine 25 mcg tablet 25 mcg PO DAILY 30 Days Qty: 30 3RF Rx Instructions: Take on an empty stomach, first thing in the morning, with water. Do not eat or drink anything else for 30 minutes afterwards clonazepam 0.5 mg tablet 0.5 mg PO DAILY PRN (Reason: anxiety) 30 Days Qty: 30 1RF Hold Instructions: Doctor's Order aspirin 81 mg tablet,delayed release (DR/EC) 81 mg PO DAILY Qty: 90 0RF Referrals: [facility] [Provider Group] (Call to establish and follow up with a GI specialist.) Duong Ramirez MD [Primary Care Provider] - Print Language: Sami
[2023-03-02 12:49] VITALS: BP 125/45; PULSE 68; RESP 16; O2SAT 98
== END 2023-03-02 13:35 | disposition home or self-care (01) ==
PROVIDERS: Emergency Provider Emergency Medicine; PCP Internal Medicine
DX: K59.00 Constipation, unspecified (principal); I10 Essential (primary) hypertension; E78.00 Pure hypercholesterolemia, unspecified; Z79.02 Long term (current) use of antithrombotics/antiplatelets; Z79.899 Other long term (current) drug therapy
CPT/HCPCS: 36415; 74018; 80048; 80076; 81001; 83690; 85025; 99283; 99284

== ENCOUNTER 2023-05-24 08:01 | Outpatient (REF) | payer MEDICARE, SELFPAY ==
[2023-05-24 08:19] LABS: MANUAL DIFF FLAG NO
[2023-05-24 08:55] LABS: Appearance Urine Cloudy; Color Urine Yellow; Glucose Urine UA Negative (Negative); Leukocyte Esterase Urine Negative (Negative); Nitrite Urine Negative (Negative); PH 5.5 (5.0-9.0); Urine Blood Negative (Negative); Urine Ketones Negative (Negative); Urine Protein Negative (Neg-Trace)
[2023-05-24 09:01] LABS: Basophils Absolute Auto 0.1 X10*3/uL (0.0-0.2); Eosinophils Absolute Auto 0.5 X10*3/uL (0.0-0.4); Eosinophils Percent Auto 5.7 % (0-4); Hematocrit 37.7 % (37.0-47.0); Hemoglobin 12.2 g/dl (12.0-16.0); Imm Gran Abs Auto 0.01 X10*3/uL (0.00-0.03); Imm Gran Pct Auto 0.1 % (0.0-0.4); Lymphocytes Absolute Auto 3.4 X10*3/uL (1.2-4.9); Lymphocytes Percent Auto 35.4 % (20-40); Mean Corpuscular HGB Conc 32.4 g/dl (31.0-35.0); Mean Corpuscular Hemoglobin 29.3 pg (27.0-33.0); Mean Corpuscular Volume 90.4 fL (80.0-98.0); Mean Platelet Volume 11.8 fL (9.4-12.3); Monocytes Absolute Auto 1.1 X10*3/uL (0.1-1.2); Monocytes Percent Auto 11.2 % (2-11); Neutrophils Absolute Auto 4.4 x10*3/uL (2.0-8.3); Neutrophils Percent Auto 46.6 % (45-73); Platelet Count 260 X10*3/uL (160-400); Red Blood Count 4.17 X10*6/uL (4.20-5.50); Red Cell Distribution Width 14.2 % (11.0-16.0); White Blood Count 9.5 X10*3/uL (4.8-10.8)
[2023-05-24 09:22] LABS: Estimated Average Glucose 111 mg/dL; Hemoglobin A1c % 5.5 % (<6.0)
[2023-05-24 09:29] LABS: Alanine Aminotransferase 13 U/L (0-31); Albumin Level 3.6 g/dL (3.5-5.0); Alkaline Phosphatase 89 U/L (39-117); Anion Gap 14 (12-20); Aspartate Amino Transferase 21 U/L (5-31); Bilirubin Total 0.3 mg/dL (0.0-1.0); Blood Urea Nitrogen 25 mg/dL (9-16); Calcium 9.4 mg/dL (8.4-10.2); Carbon Dioxide 21 mmol/L (22-29); Chloride 112 mmol/L (96-108); Cholesterol 153 mg/dL (<200); Estimated Glomerular Filt Rate 43; Glucose Fasting 107 mg/dL (60-99); HDL Cholesterol 56 mg/dL (>40); LDL Cholesterol Calculated 78 mg/dL (<100); Sodium 143 mmol/L (135-145); Total Protein 6.9 g/dL (6.5-8.0); Triglycerides 97 mg/dL (<150)
[2023-05-24 09:48] LABS: Free T4 (Free Thyroxine) 0.82 ng/dL (0.71-1.85); Thyroid Stimulating Hormone 3.73 uIU/mL (0.32-4.0); Vitamin D 25-OH Total 61.8 ng/mL (>30)
== END 2023-05-24 08:02 | disposition home or self-care (01) ==
LOC: HO.LAB 08:01
PROVIDERS: PCP Internal Medicine; Visit Provider Internal Medicine
DX: E78.00 Pure hypercholesterolemia, unspecified (principal); E55.9 Vitamin D deficiency, unspecified; R30.0 Dysuria; E03.9 Hypothyroidism, unspecified; R73.01 Impaired fasting glucose; I10 Essential (primary) hypertension
CPT/HCPCS: 36415; 80053; 80061; 81003; 82306; 83036; 84439; 84443; 85025

== ENCOUNTER 2023-05-31 12:24 | Outpatient (AMB) | payer MEDICARE, SELFPAY ==
--- NOTE | 2023-05-31 12:34 | MHC.PC.OV ---
Vital Signs 05/31/23 12:35 Height 4 ft 11 in Weight 162 lb BMI 32.7 BP 110/60 Blood Pressure Location Lt brachial Position Sitting Pulse 55 Pulse Source Pulse Oximeter Pulse Oximetry (%) 99 Oxygen Delivery Method Room Air Intake Visit Reasons: Annual Physical Intake Note: Patient is here today for a physical. 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: Not Required per policy Accompanied by: Self / Same As Patient Allergies levofloxacin Allergy (Unknown, Verified 05/31/23 12:58) Unknown penicillin V Allergy (Unknown, Verified 05/31/23 12:58) Unknown Sulfa (Sulfonamide Antibiotics) Allergy (Unknown, Verified 05/31/23 12:58) Unknown Medication List - Last Reconciled 05/31/23 by Duong Ramirez MD aspirin 81 mg PO DAILY cholecalciferol (vitamin D3) 125 mcg PO DAILY 90 days clonazepam 0.5 mg PO DAILY PRN 30 days diltiazem HCl CD (Cartia XT) 240 mg PO QAM 90 days estradiol 1 mg PO DAILY 30 days hydrochlorothiazide 12.5 mg PO DAILY levothyroxine 25 mcg PO DAILY 30 days losartan 50 mg PO DAILY 90 days oxybutynin chloride 5 mg PO BEDTIME 90 days simvastatin 20 mg PO BEDTIME 90 days Tobacco use date assessed: 05/31/23 Fall risk assessment: No Falls in past year Last assessed Fall Risk: 05/31/23 Dental Screening Dental Screen Date: 02/22/23 HPI Annual Physical HPI Details Patient comes in today for her annual physical examination States that she feels okay and that her previous right-sided sciatica pain have been much better controlled lately She denies any headaches or dizziness Denies any chest pains, no SOB No nausea/vomiting, no abdominal pain No change in bowel habits noted She denies any acute urinary symptoms Had her follow up labs done last week - to discuss her results She has NEVER had a screening colonoscopy done by choice; also has not had a screening mammogram done by choice as well [facility] Medical History Medicare annual wellness visit, subsequent Adult general medical exam Obesity (BMI 30-39.9) Elevated TSH Impaired fasting glucose Acquired hypothyroidism Colonoscopy refused Post-menopausal Transient ischemic attack (TIA) Anxiety GERD without esophagitis Osteopenia Lumbar degenerative disc disease Vitamin D deficiency Pure hypercholesterolemia Benign essential hypertension Surgical History History of surgery History of total abdominal hysterectomy and bilateral salpingo-oophorectomy Family History Father Cancer Mother Cancer Hypertension Chronic mental illness Brother No problems noted. Sister No problems noted. Social History Housing: House Alcohol intake: current Alcohol intake frequency: holidays/special occasions only Alcohol type: wine Patient Tobacco Use Status: Never used Tobacco e-Cigarette/Vaping Use: Never Used Second Hand Smoke Exposure: Yes service: No Current occupational status: retired Cognitive needs: No Hearing needs: No Vision needs: Yes Questionnaire Thrive Questionnaire Date Thrive assessed: 02/22/23 PAVEL-7 AMB Questionnaire PAVEL-7 Date PAVEL - 7 assessed: 02/22/23 Source: Developed by Drs. Daniel Arango, Geeta Gallagher, Milton Adams and colleagues, with an educational rocio from [employer]. Review of Systems Const Denies chills, Denies fatigue, Denies fever(s), Denies headache(s) and Denies malaise Eyes Denies blurry vision, Denies change in vision, Denies irritation and Denies itchy eyes ENT Denies dysphagia, Denies dizziness, Denies otalgia, Denies headache(s), Denies nasal congestion, Denies neck pain, Denies odynophagia, Denies sinus pain and Denies sore throat Card Denies chest pain, Denies rapid heart rate, Denies irregular heart rhythm, Denies palpitations and Denies dyspnea Resp Denies chest congestion, Denies cough, Denies dyspnea and Denies wheezing GI Denies abdominal pain, Denies bloating, Denies constipation, Denies dysphagia, Denies heartburn, Denies diarrhea, Denies nausea, Denies odynophagia and Denies vomiting Denies hematuria, Denies urinary frequency, Denies dysuria, Denies urinary incontinence and Denies urinary urgency Musc Reports back pain (on and off over the right side but states they have been very mild), Denies neck pain and Denies numbness Skin/Breast Denies breast pain, Denies breast mass, Denies change in pigmentation, Denies lesions, Denies rash and Denies unusual bruising Neuro Denies dizziness, Denies headache(s) and Denies numbness Psych Denies anxiety and Denies depression Endo Denies fatigue and Denies palpitations Huan/Lymph Denies easy bruising Aller/Immun Denies itchy eyes and Denies wheezing Physical exam (Primary Care) Vital Signs: Last Vital Signs Pulse 55 05/31/23 12:35 BP 110/60 05/31/23 12:35 Pulse Ox 99 05/31/23 12:35 Oxygen Delivery Method Room Air 05/31/23 12:35 BMI result Body Mass Index 32.7 Tobacco/Smoking Status: Tobacco use Status Tobacco use date assessed 05/31/23 05/31/23 12:41 Patient Tobacco Use Status Never used Tobacco 05/31/23 12:41 e-Cigarette/Vaping Use Never Used 05/31/23 12:41 Thrive Assessment: Date of Thrive Assessment Date Thrive assessed 02/22/23 05/31/23 12:41 Const General: no acute distress, alert and awake Orientation/consciousness: patient oriented x3 HENMT Head: Yes normocephalic and Yes atraumatic Ears: external ears normal, TM's normal bilaterally and EAC's normal General nose exam: No nasal discharge present Face and sinus: Yes normal facial exam and Yes sinuses nontender Teeth and gingiva: dentition normal Throat: Yes posterior oropharynx normal and Yes tonsils normal (no TP congestion) Eyes Eyelids: Yes eyelids normal Conjunctivae: conjunctivae normal Pupils: Equal, round and reactive pupils present EOM: EOMs intact bilaterally Neck Neck: Yes no lymphadenopathy and Yes supple Thyroid: Thyroid normal Resp Auscultation: clear to auscultation bilaterally, no rales and no wheezes Cardio Rate: regular rate Rhythm: regular rhythm Heart sounds: no murmurs GI Palpation (GI): Soft to palpation, nontender and No hepatosplenomegaly present Auscultation: normal bowel sounds General: Yes no CVA tenderness Back/Spine/Pelvis Back: no CVA tenderness Thoracic/Lumbar Spine: thoracic and lumbar spine normal to inspection Skin Lesions: no lesions Rashes: no rashes Neuro General: patient oriented x3, moves all extremities, no focal motor deficits and CN's II-XI intact bilaterally Cranial nerves: Yes Equal, round and reactive pupils present Cognition (Neuro): normal cognition Gait exam (Neuro): Normal gait present Extrem General: Yes no clubbing, cyanosis or edema Results Reviewed Results Reviewed: Laboratory Tests 05/24/23 05/24/23 08:18 08:20 WBC 9.5 Hgb 12.2 Hct 37.7 Plt Count 260 Sodium 143 Potassium 4.0 Creatinine 1.21 Estimated GFR 43 Fasting Glucose 107 H Hemoglobin A1c % 5.5 Calcium 9.4 AST 21 ALT 13 Triglycerides 97 Cholesterol 153 LDL Cholesterol, Calc 78 HDL Cholesterol 56 25-OH Vitamin D Total 61.8 TSH 3.73 Free T4 0.82 Ur Specific [place] 1.020 Urine Protein Negative Urine Glucose (UA) Negative Urine Blood Negative Urine Nitrite Negative Ur Leukocyte Esterase Negative Assessment and Plan Assessment & Plan (1) Annual physical exam: Code(s): Z00.00 - Encounter for general adult medical examination without abnormal findings Plan: Results of her labs done last week reviewed and discussed with patient Patient has declined to go for a screening colonoscopy and annual mammography in the past, by choice and continues to decline being sent for these; she declines the option for Cologuard testing as well She has also never had a gynecology exam and pap smear (also by choice) and at her current age, there is no reason to keep up with these anymore unless she has any gynecologic issues that would warrant these done (2) Benign essential hypertension: Code(s): I10 - Essential (primary) hypertension Plan: Reinforced low sodium diet - goal is systolic BP of at least 140 mm or less Continue Losartan 50 mg QD, Hydrochlorothiazide 12.5 mg QD and Diltiazem ER 240 mg Q AM (3) Pure hypercholesterolemia: Code(s): E78.00 - Pure hypercholesterolemia, unspecified Plan: Reinforced low cholesterol diet Continue Simvastatin 20 mg QD Will recheck her labs and fasting lipids in 4 months for follow up (4) Transient ischemic attack (TIA): Code(s): G45.9 - Transient cerebral ischemic attack, unspecified Plan: Denies any recurrence of symptoms over the past year Continue anti-platelet Tx with low dose Aspirin 81 mg QD and with aggressive risk factor modification, primarily control of her BP, cholesterol, blood sugar Follow up with neurology as scheduled (5) Impaired fasting glucose: Code(s): R73.01 - Impaired fasting glucose Plan: HgbA1c remains normal at 5.5% on her labs done last week Reinforced low calorie diet/exercise as tolerated (6) Vitamin D deficiency: Code(s): E55.9 - Vitamin D deficiency, unspecified Plan: Corrected / improving - advised that her Vitamin D level is trending downwards slowly and is now closer to what her numbers should be She is advised to continue on her Vitamin D3 2000 units twice a week Will recheck her Vitamin D level in 4 months for follow up (7) Acquired hypothyroidism: Code(s): E03.9 - Hypothyroidism, unspecified Plan: Her TSH and free T4 level are now both normal on her recent labs Continue Levothyroxine 25 mcg QD Will recheck her TFTs in 4 months for follow up (8) Lumbar degenerative disc disease: Code(s): M51.36 - Other intervertebral disc degeneration, lumbar region Plan: Reinforced activity and weight lifting restrictions States that she continues to do the back exercises she was previously taught on a regular basis to help manage her back pain and her lower back symptoms have been much better controlled lately (9) Osteopenia: Comment: Baseline BMD done in February 2017 showed (+) osteopenia Code(s): M85.80 - Other specified disorders of bone density and structure, unspecified site Qualifiers: Osteopenia location: unspecified Qualified Code(s): M85.80 - Other specified disorders of bone density and structure, unspecified site Plan: Repeat BMD done in 11/2020 revealed (+) osteopenia with no significant change in BMD from baseline Patient is again advised to continue with her Vitamin-D and Calcium supplements as instructed and to try exercising regularly to help keep up with her BMD Will send her for repeat BMD for follow up (10) GERD without esophagitis: Code(s): K21.9 - Gastro-esophageal reflux disease without esophagitis Plan: Dietary restrictions reinforced Continue Famotidine 20 mg BID as needed (11) Anxiety: Code(s): F41.9 - Anxiety disorder, unspecified Plan: Continue Clonazepam 0.5 mg once a day as needed (12) Obesity (BMI 30-39.9): Code(s): E66.9 - Obesity, unspecified Plan: Reinforced diet/ exercise as tolerated /lose weight Plan Follow up in 4 months Orders: Orders XR DEXA axial skeleton Today Z78.0 - Asymptomatic menopausal state Free T4 (Free Thyroxine) 4 Months E03.9 - Hypothyroidism, unspecified Lipid Panel 4 Months E78.00 - Pure hypercholesterolemia, unspecified Comprehensive [place]. Panel Fast 4 Months E78.00 - Pure hypercholesterolemia, unspecified UA CC w/rflx Micro + Cult 4 Months R30.0 - Dysuria Thyroid Stimulating Hormone 4 Months E03.9 - Hypothyroidism, unspecified Complete Blood Count Auto Diff 4 Months D64.9 - Anemia, unspecified Vitamin D 25-OH Total 4 Months E55.9 - Vitamin D deficiency, unspecified Review Patient declined Mammogram: 05/31/23 Patient declined Colonoscopy: 05/31/23 Patient declined Colon Cancer Screen Lab: 05/31/23 Coding Level of Care Code Est Pt Prev Care >65y([id number]) Diagnoses Annual physical exam Z00.00 Benign essential hypertension I10 Pure hypercholesterolemia E78.00 Transient ischemic attack (TIA) G45.9 Impaired fasting glucose R73.01 Vitamin D deficiency E55.9 Acquired hypothyroidism E03.9 Lumbar degenerative disc disease M51.36 Osteopenia, unspecified location M85.80 Osteopenia location: unspecified GERD without esophagitis K21.9 Anxiety F41.9 Obesity (BMI 30-39.9) E66.9
[2023-05-31 12:35] VITALS: BP 110/60; PULSE 55; O2SAT 99; BMI 32.7
== END 2023-05-31 13:13 | disposition home or self-care (01) ==
PROVIDERS: PCP Internal Medicine; Visit Provider Internal Medicine
DX: Z00.00 Encounter for general adult medical examination without abnormal findings (principal); I10 Essential (primary) hypertension; E78.00 Pure hypercholesterolemia, unspecified; G45.9 Transient cerebral ischemic attack, unspecified; R73.01 Impaired fasting glucose; E55.9 Vitamin D deficiency, unspecified; E03.9 Hypothyroidism, unspecified; M51.36 Other intervertebral disc degeneration, lumbar region; M85.80 Other specified disorders of bone density and structure, unspecified site; K21.9 Gastro-esophageal reflux disease without esophagitis; F41.9 Anxiety disorder, unspecified
CPT/HCPCS: 99397

== ENCOUNTER 2023-10-19 07:48 | Outpatient (REF) | payer MEDICARE, SELFPAY ==
[2023-10-19 08:00] LABS: MANUAL DIFF FLAG NO
[2023-10-19 08:17] LABS: Basophils Absolute Auto 0.1 X10*3/uL (0.0-0.2); Eosinophils Absolute Auto 0.4 X10*3/uL (0.0-0.4); Eosinophils Percent Auto 4.7 % (0-4); Hematocrit 35.8 % (37.0-47.0); Hemoglobin 11.5 g/dl (12.0-16.0); Imm Gran Abs Auto 0.02 X10*3/uL (0.00-0.03); Imm Gran Pct Auto 0.2 % (0.0-0.4); Lymphocytes Absolute Auto 2.8 X10*3/uL (1.2-4.9); Lymphocytes Percent Auto 31.7 % (20-40); Mean Corpuscular HGB Conc 32.1 g/dl (31.0-35.0); Mean Corpuscular Hemoglobin 28.9 pg (27.0-33.0); Mean Corpuscular Volume 89.9 fL (80.0-98.0); Mean Platelet Volume 11.5 fL (9.4-12.3); Monocytes Absolute Auto 0.9 X10*3/uL (0.1-1.2); Monocytes Percent Auto 10.7 % (2-11); Neutrophils Absolute Auto 4.5 x10*3/uL (2.0-8.3); Neutrophils Percent Auto 51.7 % (45-73); Platelet Count 291 X10*3/uL (160-400); Red Blood Count 3.98 X10*6/uL (4.20-5.50); Red Cell Distribution Width 14.5 % (11.0-16.0); White Blood Count 8.8 X10*3/uL (4.8-10.8)
[2023-10-19 09:13] LABS: Alanine Aminotransferase 11 U/L (0-31); Albumin Level 3.5 g/dL (3.5-5.0); Alkaline Phosphatase 78 U/L (39-117); Anion Gap 12 (12-20); Aspartate Amino Transferase 19 U/L (5-31); Bilirubin Total 0.4 mg/dL (0.0-1.0); Blood Urea Nitrogen 21 mg/dL (9-16); Calcium 9.5 mg/dL (8.4-10.2); Carbon Dioxide 22 mmol/L (22-29); Chloride 110 mmol/L (96-108); Cholesterol 157 mg/dL (<200); Estimated Glomerular Filt Rate 48; Glucose Fasting 117 mg/dL (60-99); HDL Cholesterol 50 mg/dL (>40); LDL Cholesterol Calculated 84 mg/dL (<100); Potassium 4.3 mmol/L (3.3-5.1); Sodium 140 mmol/L (135-145); Total Protein 6.8 g/dL (6.5-8.0); Triglycerides 118 mg/dL (<150)
[2023-10-19 09:30] LABS: Thyroid Stimulating Hormone 3.91 uIU/mL (0.32-4.0); Vitamin D 25-OH Total 67.9 ng/mL (>30)
[2023-10-19 10:15] LABS: Appearance Urine Cloudy; Color Urine Yellow; Glucose Urine UA Negative (Negative); Leukocyte Esterase Urine Large (3+) (Negative); Nitrite Urine Negative (Negative); PH 7.5 (5.0-9.0); UMIC TRIGGER UACC YES; Urine Blood Negative (Negative); Urine Ketones Negative (Negative); Urine Protein Negative (Neg-Trace)
[2023-10-19 10:18] LABS: Bacteria Urine 4+ (None Seen); Hyaline Casts Urine 0-2 /LPF (0-2); RBC Urine 0-2 /HPF (0-2); Squamous Epithelial Cell Urine 0-2 /HPF (0-2); UACC Culture Trigger YES; WBC Urine >50 /HPF (0-5)
== END 2023-10-19 07:49 | disposition home or self-care (01) ==
LOC: HO.LAB 07:48
PROVIDERS: PCP Internal Medicine; Visit Provider Internal Medicine
DX: E03.9 Hypothyroidism, unspecified (principal); E78.00 Pure hypercholesterolemia, unspecified; D64.9 Anemia, unspecified; E55.9 Vitamin D deficiency, unspecified; R30.0 Dysuria; R82.79 Other abnormal findings on microbiological examination of urine
CPT/HCPCS: 36415; 80053; 80061; 81001; 81003; 82306; 84439; 84443; 85025; 87086; 87088; 87186

== ENCOUNTER 2023-10-25 12:42 | Outpatient (AMB) | payer MEDICARE, SELFPAY ==
[2023-10-25 12:44] VITALS: BP 132/84; PULSE 76; O2SAT 98; BMI 30.9
--- NOTE | 2023-10-25 12:44 | A.OFFPC_ITS ---
Vital Signs 10/25/23 12:44 Height 4 ft 11 in Weight 153 lb BMI 30.9 BP 132/84 Blood Pressure Location Lt brachial Position Sitting Pulse 76 Pulse Source Pulse Oximeter Pulse Oximetry (%) 98 Oxygen Delivery Method Room Air Intake Visit Reasons: 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 Accompanied by: Self / Same As Patient Allergies levofloxacin Allergy (Unknown, Verified 10/25/23 13:20) Unknown penicillin V Allergy (Unknown, Verified 10/25/23 13:20) Unknown Sulfa (Sulfonamide Antibiotics) Allergy (Unknown, Verified 10/25/23 13:20) Unknown Medication List - Last Reconciled 10/25/23 by Duong Ramirez MD aspirin 81 mg PO DAILY cholecalciferol (vitamin D3) 125 mcg PO DAILY 90 days clonazepam 0.5 mg PO DAILY PRN 30 days diltiazem HCl CD (Cartia XT) 240 mg PO QAM 90 days estradiol 1 mg PO DAILY 30 days hydrochlorothiazide 12.5 mg PO DAILY levothyroxine 25 mcg PO DAILY 30 days losartan 50 mg PO DAILY 90 days oxybutynin chloride 5 mg PO BEDTIME 90 days simvastatin 20 mg PO BEDTIME 90 days Tobacco use date assessed: 10/25/23 Fall risk assessment: No Falls in past year Last assessed Fall Risk: 10/25/23 Dental Screening Dental Screen Date: 10/25/23 Did you have a dental visit in the last 12 months?: No Did you have a dental problem in the last 6 months where you did not have access to dental care?: No Was dental information given to patient?: No HPI [facility] f/u HPI Details Patient comes in today for her follow up visit States that she currently feels okay She denies any headaches or dizziness Denies any chest pains, no SOB No nausea/vomiting, no abdominal pain No change in bowel habits noted Needs several of her Rx refilled She had her follow up labs done last week - to discuss her results [facility] Medical History (Updated 10/25/23 @ 13:31 by Duong Ramirez MD) Impaired fasting glucose Obesity (BMI 30-39.9) Elevated TSH Acquired hypothyroidism Colonoscopy refused Post-menopausal Transient ischemic attack (TIA) Anxiety GERD without esophagitis Osteopenia Lumbar degenerative disc disease Vitamin D deficiency Pure hypercholesterolemia Benign essential hypertension Surgical History History of surgery History of total abdominal hysterectomy and bilateral salpingo-oophorectomy Family History Father Cancer Mother Cancer Hypertension Chronic mental illness Brother No problems noted. Sister No problems noted. Social History Housing: House Alcohol intake: current Alcohol intake frequency: holidays/special occasions only Alcohol type: wine Patient Tobacco Use Status: Never used Tobacco e-Cigarette/Vaping Use: Never Used Second Hand Smoke Exposure: Yes service: No Current occupational status: retired Cognitive needs: No Hearing needs: No Vision needs: Yes Questionnaire PHQ-9 Over the last 2 weeks, how often have you been bothered by any of the following problems? 1. Little interest or pleasure in doing things: not at all 2. Feeling down, depressed, or hopeless: several days 3. Trouble falling or staying asleep, or sleeping too much: not at all 4. Feeling tired or having little energy: several days 5. Poor appetite or overeating: not at all 6. Feeling bad about yourself - or that you are a failure or have let yourself or your family down: not at all 7. Trouble concentrating on things, such as reading the newspaper or watching television: several days 8. Moving or speaking so slowly that other people could have noticed. Or the opposite - being so fidgety or restless that you have been moving around a lot more than usual: several days 9. Thoughts that you would be better off or of hurting yourself in some way: not at all Total score: 4 Depression Screening Interpretation: Positive Depression Screening Follow-up: Existing condition and Declines treatment (feels that her symptoms are more due to her anxiety) Depression Screening Done: Yes 99781 - PHQ-9 Billing: Yes Source: Developed by Drs. Daniel Arango, Geeta Gallagher, Milton Adams and colleagues, with an educational rocio from [employer]. Thrive Questionnaire Date Thrive assessed: 10/25/23 I am a: Patient What is your living situation today?: I have a steady place to live Within the past 12 months, did the food you bought not last and you didn't have the money to get more?: Never true Within the past 12 months, did you worry whether your food would run out before you got money to buy more?: Never true Do you have trouble paying for medicines?: No Do you have trouble getting transportation to medical appointments?: No Do you have trouble paying your heating and electricity bill?: No Do you have trouble taking care of your child, family member or friend?: No Do you have trouble with day-to-day activities such as bathing, preparing meals, shopping, managing finances, etc.?: No Are you currently unemployed and looking for a job?: No Are you interested in more education?: No Please select the resources that you would like help with: None Currently or been in a relationship where the following occur: No concerns reported THRIVE Score: 0 AUDIT C Alcohol Use Questionnaire (AUDIT-C) 1. How often do you have a drink containing alcohol?: Never 3. How often do you have six or more drinks on one occasion?: Never Total Score: 0 Score Reviewed/Action Taken: Yes PAVEL-7 AMB Questionnaire PAVEL-7 Date PAVEL - 7 assessed: 10/25/23 Feeling nervous, anxious, or on edge: 0 = Not at all Not being able to stop or control worryin = Not at all Worrying too much about different things: 0 = Not at all Trouble relaxin = Not at all Being so restless that it is hard to sit still: 0 = Not at all Becoming easily annoyed or irritable: 0 = Not at all Feeling afraid as if something awful might happen: 0 = Not at all Total PAVEL-7 score (0-4 normal; 5-9 mild; 10-14 moderate; 15-21 severe): 0 Source: Developed by Drs. Daniel Arango, Geeta Gallagher, Milton Adams and colleagues, with an educational rocio from [employer]. Review of Systems Const Denies chills, Denies fatigue, Denies fever(s) and Denies headache(s) ENT Denies dysphagia, Denies dizziness, Denies otalgia, Denies headache(s), Denies neck pain, Denies odynophagia and Denies sore throat Card Denies chest pain, Denies irregular heart rhythm, Denies palpitations and Denies dyspnea Resp Denies chest congestion, Denies cough, Denies dyspnea and Denies wheezing GI Denies abdominal pain, Denies constipation, Denies dysphagia, Denies heartburn, Denies diarrhea, Denies nausea, Denies odynophagia and Denies vomiting Denies urinary frequency, Denies dysuria, Denies urinary incontinence and Denies urinary urgency Musc Reports back pain (on and off over the right side but states they have been very mild), Denies neck pain and Denies numbness Skin/Breast Denies rash Neuro Denies dizziness, Denies headache(s) and Denies numbness Psych Denies anxiety and Denies depression Endo Denies fatigue and Denies palpitations Huan/Lymph Denies easy bruising Aller/Immun Denies wheezing Physical exam (Primary Care) Vital Signs: Last Vital Signs Pulse 76 10/25/23 12:44 BP 132/84 10/25/23 12:44 Pulse Ox 98 10/25/23 12:44 Oxygen Delivery Method Room Air 10/25/23 12:44 BMI result Body Mass Index 30.9 Tobacco/Smoking Status: Tobacco use Status Tobacco use date assessed 10/25/23 10/25/23 12:51 Patient Tobacco Use Status Never used Tobacco 10/25/23 12:51 e-Cigarette/Vaping Use Never Used 10/25/23 12:51 PHQ-9: PHQ-9 Score PHQ-9: Total score 4 10/25/23 12:51 Depression Screening Interpretation: Positive Depression Screening Follow-up: Existing condition and Declines treatment (feels that her symptoms are more due to her anxiety) Thrive Assessment: Date of Thrive Assessment Date Thrive assessed 10/25/23 10/25/23 12:51 Currently or been in a relationship where the following occur: No concerns reported Const General: no acute distress and alert HENMT Ears: TM's normal bilaterally and EAC's normal Throat: Yes posterior oropharynx normal and Yes tonsils normal (no TP congestion noted) Neck Neck: Yes no lymphadenopathy and Yes supple Thyroid: Thyroid normal Resp Auscultation: clear to auscultation bilaterally, no rales and no wheezes Cardio Rate: regular rate Rhythm: regular rhythm Heart sounds: no murmurs GI Palpation (GI): Soft to palpation and nontender Auscultation: normal bowel sounds General: Yes no CVA tenderness Back/Spine/Pelvis Back: no CVA tenderness Thoracic/Lumbar Spine: lumbar spinal tenderness (mild) Skin Rashes: no rashes Extrem General: Yes no clubbing, cyanosis or edema Results Reviewed Results Reviewed: Laboratory Tests 10/19/23 10/19/23 07:50 Unknown WBC 8.8 Hgb 11.5 L Hct 35.8 L Plt Count 291 Sodium 140 Potassium 4.3 Creatinine 1.09 Estimated GFR 48 Fasting Glucose 117 H Calcium 9.5 AST 19 ALT 11 Triglycerides 118 Cholesterol 157 LDL Cholesterol, Calc 84 HDL Cholesterol 50 25-OH Vitamin D Total 67.9 TSH 3.91 Free T4 0.80 Ur Specific [place] 1.010 Urine Protein Negative Urine Glucose (UA) Negative Urine Blood Negative Urine Nitrite Negative Ur Leukocyte Esterase Large (3+) H Assessment and Plan Assessment & Plan (1) Pure hypercholesterolemia: Code(s): E78.00 - Pure hypercholesterolemia, unspecified Plan: Results of her labs done last week reviewed and discussed with patient Reinforced low cholesterol diet Continue Simvastatin 20 mg QD Will recheck her labs and fasting lipids in 4 months for follow up (2) Benign essential hypertension: Code(s): I10 - Essential (primary) hypertension Plan: Reinforced low sodium diet - goal is systolic BP of at least 140 mm or less Continue Losartan 50 mg QD, Hydrochlorothiazide 12.5 mg QD and Diltiazem ER 240 mg Q AM - Rx refilled (3) Transient ischemic attack (TIA): Code(s): G45.9 - Transient cerebral ischemic attack, unspecified Plan: She denies any recurrence of symptoms over the past year Continue anti-platelet Tx with low dose Aspirin 81 mg QD and with aggressive risk factor modification, primarily control of her BP, cholesterol, blood sugar Follow up with neurology as scheduled (4) Impaired fasting glucose: Code(s): R73.01 - Impaired fasting glucose Plan: HgbA1c remains normal at 5.5% when checked a few months ago Reinforced low calorie diet/exercise as tolerated (5) Acquired hypothyroidism: Code(s): E03.9 - Hypothyroidism, unspecified Plan: Her TSH and free T4 level have both remained normal on her recent labs Continue Levothyroxine 25 mcg QD Will recheck her TFTs in 4 months for follow up (6) Vitamin D deficiency: Code(s): E55.9 - Vitamin D deficiency, unspecified Plan: Corrected - continue Vitamin D3 2000 units twice a week Will recheck her Vitamin D level in 4 months for follow up (7) Lumbar degenerative disc disease: Code(s): M51.36 - Other intervertebral disc degeneration, lumbar region Plan: Reinforced activity and weight lifting restrictions States that she continues to do the back exercises she was previously taught on a regular basis to help manage her back pain and her lower back symptoms have been much better controlled lately (8) Osteopenia: Comment: Baseline BMD done in February 2017 showed (+) osteopenia Code(s): M85.80 - Other specified disorders of bone density and structure, unspecified site Qualifiers: Osteopenia location: unspecified Qualified Code(s): M85.80 - Other specified disorders of bone density and structure, unspecified site Plan: Repeat BMD done in 11/2020 revealed (+) osteopenia with no significant change in BMD from baseline Patient is again advised to continue with her Vitamin-D and Calcium supplements as instructed and to try exercising regularly to help keep up with her BMD She was previously sent for repeat BMD for follow up and she is scheduled to have this done tomorrow (9) GERD without esophagitis: Code(s): K21.9 - Gastro-esophageal reflux disease without esophagitis Plan: Dietary restrictions reinforced Continue Famotidine 20 mg BID as needed (10) Anxiety: Code(s): F41.9 - Anxiety disorder, unspecified Plan: Continue Clonazepam 0.5 mg once a day as needed (11) Obesity (BMI 30-39.9): Code(s): E66.9 - Obesity, unspecified Plan: Reinforced diet/ exercise as tolerated /lose weight Plan Follow up in 4 months Orders: Orders Comprehensive [place]. Panel Fast 4 Months E78.00 - Pure hypercholesterolemia, unspecified Lipid Panel 4 Months E78.00 - Pure hypercholesterolemia, unspecified Free T4 (Free Thyroxine) 4 Months E03.9 - Hypothyroidism, unspecified Thyroid Stimulating Hormone 4 Months E03.9 - Hypothyroidism, unspecified UA CC w/rflx Micro + Cult 4 Months R30.0 - Dysuria Complete Blood Count Auto Diff 4 Months D64.9 - Anemia, unspecified Vitamin D 25-OH Total 4 Months E55.9 - Vitamin D deficiency, unspecified Hemoglobin A1c 4 Months R73.01 - Impaired fasting glucose Medications: Refilled levothyroxine Take on an empty stomach, first thing in the morning, with water. Do not eat or drink anything else for 30 minutes afterwards 25 mcg PO DAILY 30 days 30 tabs 3RF E03.9 - Hypothyroidism, unspecified simvastatin 20 mg PO BEDTIME 90 days 90 tabs 1RF clonazepam 0.5 mg PO DAILY 30 days PRN 30 tabs 1RF anxiety F41.9 - Anxiety disorder, unspecified diltiazem HCl CD (Cartia XT) 240 mg PO QAM 90 days 90 caps 1RF hydrochlorothiazide 12.5 mg PO DAILY 90 caps 1RF losartan 50 mg PO DAILY 90 days 90 tabs 1RF Coding Level of Care Code Est Pt Level 4 (09644) Diagnoses Pure hypercholesterolemia E78.00 Benign essential hypertension I10 Transient ischemic attack (TIA) G45.9 Impaired fasting glucose R73.01 Acquired hypothyroidism E03.9 Vitamin D deficiency E55.9 Lumbar degenerative disc disease M51.36 Osteopenia, unspecified location M85.80 Osteopenia location: unspecified GERD without esophagitis K21.9 Anxiety F41.9 Obesity (BMI 30-39.9) E66.9
== END 2023-10-25 13:32 | disposition home or self-care (01) ==
PROVIDERS: PCP Internal Medicine; Visit Provider Internal Medicine
DX: E78.00 Pure hypercholesterolemia, unspecified (principal); I10 Essential (primary) hypertension; G45.9 Transient cerebral ischemic attack, unspecified; R73.01 Impaired fasting glucose; E03.9 Hypothyroidism, unspecified; E55.9 Vitamin D deficiency, unspecified; M51.36 Other intervertebral disc degeneration, lumbar region; M85.80 Other specified disorders of bone density and structure, unspecified site; K21.9 Gastro-esophageal reflux disease without esophagitis; F41.9 Anxiety disorder, unspecified; E66.9 Obesity, unspecified
CPT/HCPCS: 99214

== ENCOUNTER 2023-10-26 12:35 | Outpatient (REF) | payer MEDICARE, SELFPAY ==
--- NOTE | ~2023-10-26 | MM_ITS ---
EXAMINATION: BONE DENSITOMETRY CLINICAL INDICATION: Asymptomatic menopausal state. COMPARISON: Previous BD dated 11/19/2020 and baseline BD dated 03/23/2017. TECHNIQUE: Using a [employer] DXA System (software version: 13.1) manufactured by [employer], dual-energy x-ray absorptiometry was performed of the lumbar spine and left hip. The images are of good technical quality. Summary results are attached. FINDINGS: LEFT FEMUR, NECK: Current: BMD 0.807 g/cm2, Z-score 0.5, T-score -1.7, osteopenia. Prior: BMD 0.803 g/cm2. Baseline: BMD 0.813 g/cm2. LEFT FEMUR, TOTAL: Current: BMD 0.922 g/cm2, Z-score 1.3, T-score -0.7, normal, 2.1% decrease from previous, 7.0% decrease from baseline (<5% change is not significant). Prior: BMD 0.942 g/cm2. Baseline: BMD 0.991 g/cm2. AP SPINE L1-L4: Current: BMD 1.343 g/cm2, Z-score 3.1, T-score 1.4, normal, 2.0% decrease from previous, 8.1% increase from baseline (<5% change is not significant). Prior: BMD 1.371 g/cm2. Baseline: BMD 1.242 g/cm2. IDENTIFIED RISK FACTORS: Early menopause, secondary osteoporosis, bilateral oophorectomy, hysterectomy, height loss, thiazide. HISTORY OF FRACTURE: None listed. MEDICATIONS: ERT/SERMS, vitamin D. MM/XR DEXA axial skeleton IMPRESSION: 1. DIAGNOSIS: Osteopenia based on the lowest T-score value of -1.7 in the femoral neck applying World Health Organization criteria. 2. 10-YEAR FRACTURE RISK PREDICTION, FRAX: Major osteoporotic fracture (clinical spine, forearm, hip or shoulder) 13.8%. Hip fracture 3.7%. 3. Treatment Recommendations: NOF guidelines recommend consideration for treatment in postmenopausal women and men age 50 and older presenting with the following: -A hip or vertebral (clinical or morphometric) fracture. -T-score less than or equal to -2.5 at the femoral neck or spine after appropriate evaluation to exclude secondary causes. -Low bone mass at the hip or spine and a 10-year fracture probability by FRAX of greater than or equal to 3% for hip fracture or greater than or equal to 20% for major osteoporotic fracture based on the [place] adapted WHO algorithm. 4. Other Recommendations: All treatment decisions require clinical judgment and consideration of individual patient factors, including patient preferences, comorbidities, previous drug use, risk factors not captured in the FRAX model (e.g. frailty, falls, vitamin D deficiency, increased bone turnover, interval significant decline in bone density) and possible under or overestimation of fracture risk by FRAX. Additional medical evaluation for secondary cause of low bone mineral density may be appropriate. FUTURE SCAN RECOMMENDATION: People with diagnosed cases of osteoporosis or at high risk for fracture should have regular bone mineral density tests. For patients eligible for Medicare, routine testing is allowed once every 2 years. The testing frequency can be increased to one year for patients who have rapidly progressing disease, those who are receiving or discontinuing medical therapy to restore bone mass, or have additional risk factors. Electronically signed by: Rosales Xie MD 10/29/2023 12:46 PM EDT
== END 2023-10-26 12:36 | disposition home or self-care (01) ==
LOC: HO.MAMMO 12:35
PROVIDERS: PCP Internal Medicine; Visit Provider Internal Medicine
DX: Z13.820 Encounter for screening for osteoporosis (principal); Z78.0 Asymptomatic menopausal state
CPT/HCPCS: 77080

== ENCOUNTER 2024-02-22 08:13 | Outpatient (REF) | payer MEDICARE, SELFPAY ==
[2024-02-22 08:29] LABS: MANUAL DIFF FLAG NO
[2024-02-22 08:58] LABS: Basophils Absolute Auto 0.1 X10*3/uL (0.0-0.2); Basophils Percent Auto 1.1 % (0-2); Eosinophils Absolute Auto 0.4 X10*3/uL (0.0-0.4); Eosinophils Percent Auto 4.4 % (0-4); Hematocrit 34.9 % (37.0-47.0); Hemoglobin 11.3 g/dl (12.0-16.0); Imm Gran Abs Auto 0.02 X10*3/uL (0.00-0.03); Imm Gran Pct Auto 0.2 % (0.0-0.4); Lymphocytes Absolute Auto 3.1 X10*3/uL (1.2-4.9); Lymphocytes Percent Auto 36.1 % (20-40); Mean Corpuscular HGB Conc 32.4 g/dl (31.0-35.0); Mean Corpuscular Hemoglobin 29.2 pg (27.0-33.0); Mean Corpuscular Volume 90.2 fL (80.0-98.0); Monocytes Absolute Auto 0.8 X10*3/uL (0.1-1.2); Monocytes Percent Auto 9.8 % (2-11); Neutrophils Absolute Auto 4.1 x10*3/uL (2.0-8.3); Neutrophils Percent Auto 48.4 % (45-73); Platelet Count 282 X10*3/uL (160-400); Red Blood Count 3.87 X10*6/uL (4.20-5.50); Red Cell Distribution Width 14.2 % (11.0-16.0); White Blood Count 8.6 X10*3/uL (4.8-10.8)
[2024-02-22 09:08] LABS: Estimated Average Glucose 105 mg/dL; Hemoglobin A1C 104.9233 umol/L; Hemoglobin A1c % 5.3 % (<6.0)
[2024-02-22 09:16] LABS: Appearance Urine Clear; Color Urine Yellow; Glucose Urine UA Negative (Negative); Leukocyte Esterase Urine Moderate (2+) (Negative); Nitrite Urine Negative (Negative); UMIC TRIGGER UACC YES; Urine Blood Negative (Negative); Urine Ketones Negative (Negative); Urine Protein Negative (Neg-Trace)
[2024-02-22 09:19] LABS: Bacteria Urine 4+ (None Seen); Hyaline Casts Urine 0-2 /LPF (0-2); RBC Urine 0-2 /HPF (0-2); UACC Culture Trigger YES; WBC Urine >50 /HPF (0-5)
[2024-02-22 09:40] LABS: Alanine Aminotransferase 7 U/L (0-31); Albumin Level 3.5 g/dL (3.5-5.0); Alkaline Phosphatase 88 U/L (39-117); Anion Gap 12 (12-20); Aspartate Amino Transferase 24 U/L (5-31); Bilirubin Total 0.3 mg/dL (0.0-1.0); Blood Urea Nitrogen 31 mg/dL (9-16); Calcium 9.4 mg/dL (8.4-10.2); Carbon Dioxide 21 mmol/L (22-29); Chloride 111 mmol/L (96-108); Cholesterol 173 mg/dL (<200); Estimated Glomerular Filt Rate 42; Glucose Fasting 106 mg/dL (60-99); HDL Cholesterol 55 mg/dL (>40); LDL Cholesterol Calculated 93 mg/dL (<100); Potassium 4.1 mmol/L (3.3-5.1); Sodium 140 mmol/L (135-145); Triglycerides 125 mg/dL (<150)
[2024-02-22 10:01] LABS: Free T4 (Free Thyroxine) 0.93 ng/dL (0.71-1.85); Thyroid Stimulating Hormone 3.98 uIU/mL (0.32-4.0); Vitamin D 25-OH Total 69.8 ng/mL (>30)
== END 2024-02-22 08:14 | disposition home or self-care (01) ==
LOC: HO.LAB 08:13
PROVIDERS: PCP Internal Medicine; Visit Provider Internal Medicine
DX: E78.00 Pure hypercholesterolemia, unspecified (principal); E03.9 Hypothyroidism, unspecified; D64.9 Anemia, unspecified; E55.9 Vitamin D deficiency, unspecified; R73.01 Impaired fasting glucose; R30.0 Dysuria
CPT/HCPCS: 36415; 80053; 80061; 81001; 81003; 82306; 83036; 84439; 84443; 85025; 87086; 87088; 87186

== ENCOUNTER 2024-03-02 11:58 | Outpatient (AMB) | payer MEDICARE, SELFPAY ==
--- NOTE | 2024-03-02 12:12 | MHC.PC.OV ---
Vital Signs 03/02/24 12:13 Height 4 ft 11 in Weight 150 lb BMI 30.3 BP 112/62 Blood Pressure Location Lt brachial Position Sitting Pulse 62 Pulse Source Pulse Oximeter Pulse Oximetry (%) 99 Oxygen Delivery Method Room Air Intake Visit Reasons: hypothyroidism, hyperlipidemia, HTN, IFG Intake Note: Patient here for a follow up hypothyroidism, hyperlipidemia, HTN, IFG Database Developer Required: No Accompanied by: Self / Same As Patient Allergies levofloxacin Allergy (Unknown, Verified 03/02/24 12:26) Unknown penicillin V Allergy (Unknown, Verified 03/02/24 12:26) Unknown Sulfa (Sulfonamide Antibiotics) Allergy (Unknown, Verified 03/02/24 12:26) Unknown Medication List - Last Reconciled 03/02/24 by Duong Ramirez MD aspirin 81 mg PO DAILY cholecalciferol (vitamin D3) 125 mcg PO DAILY 90 days clonazepam 0.5 mg PO DAILY PRN 30 days diltiazem HCl CD (Cartia XT) 240 mg PO QAM 90 days estradiol 1 mg PO DAILY 30 days hydrochlorothiazide 12.5 mg PO DAILY levothyroxine 25 mcg PO DAILY 30 days losartan 50 mg PO DAILY 90 days oxybutynin chloride 5 mg PO BEDTIME 90 days simvastatin 20 mg PO BEDTIME 90 days Tobacco use date assessed: 03/02/24 Fall risk assessment: No Falls in past year Last assessed Fall Risk: 03/02/24 Dental Screening Dental Screen Date: 03/02/24 Did you have a dental visit in the last 12 months?: No Did you have a dental problem in the last 6 months where you did not have access to dental care?: No Was dental information given to patient?: Patient declined HPI hypothyroidism, hyperlipidemia, HTN, IFG HPI Details Patient comes in today for her follow up visit States that she feels okay She denies any headaches or dizziness Denies any chest pains, no SOB No nausea/vomiting, no abdominal pain No change in bowel habits noted She had her follow up labs done last week - to discuss her results [facility] Medical History (Updated 03/02/24 @ 13:43 by Duong Ramirez MD) Obesity (BMI 30-39.9) Impaired fasting glucose Elevated TSH Acquired hypothyroidism Colonoscopy refused Post-menopausal Transient ischemic attack (TIA) Anxiety GERD without esophagitis Osteopenia Lumbar degenerative disc disease Vitamin D deficiency Pure hypercholesterolemia Benign essential hypertension Surgical History History of surgery History of total abdominal hysterectomy and bilateral salpingo-oophorectomy Family History Father Cancer Mother Cancer Hypertension Chronic mental illness Brother No problems noted. Sister No problems noted. Social History Housing: House Alcohol intake: current Alcohol intake frequency: holidays/special occasions only Alcohol type: wine Patient Tobacco Use Status: Never used Tobacco e-Cigarette/Vaping Use: Never Used Second Hand Smoke Exposure: Yes service: No Current occupational status: retired Cognitive needs: No Hearing needs: No Vision needs: Yes Questionnaire PHQ-9 Over the last 2 weeks, how often have you been bothered by any of the following problems? 1. Little interest or pleasure in doing things: not at all 2. Feeling down, depressed, or hopeless: not at all 3. Trouble falling or staying asleep, or sleeping too much: not at all 4. Feeling tired or having little energy: not at all 5. Poor appetite or overeating: not at all 6. Feeling bad about yourself - or that you are a failure or have let yourself or your family down: not at all 7. Trouble concentrating on things, such as reading the newspaper or watching television: not at all 8. Moving or speaking so slowly that other people could have noticed. Or the opposite - being so fidgety or restless that you have been moving around a lot more than usual: not at all 9. Thoughts that you would be better off or of hurting yourself in some way: not at all Total score: 0 Depression Screening Interpretation: Negative Depression Screening Done: Yes 68593 - PHQ-9 Billing: Yes Source: Developed by Drs. Daniel Arango, Geeta Gallagher, Milton Adams and colleagues, with an educational rocio from [employer]. Thrive Questionnaire Date Thrive assessed: 03/02/24 I am a: Patient What is your living situation today?: I have a steady place to live Within the past 12 months, did the food you bought not last and you didn't have the money to get more?: Never true Within the past 12 months, did you worry whether your food would run out before you got money to buy more?: Never true Do you have trouble paying for medicines?: No Do you have trouble getting transportation to medical appointments?: No Do you have trouble paying your heating and electricity bill?: No Do you have trouble taking care of your child, family member or friend?: No Do you have trouble with day-to-day activities such as bathing, preparing meals, shopping, managing finances, etc.?: No Are you currently unemployed and looking for a job?: No Are you interested in more education?: No Please select the resources that you would like help with: None Currently or been in a relationship where the following occur: No concerns reported THRIVE Score: 0 AUDIT C Alcohol Use Questionnaire (AUDIT-C) 1. How often do you have a drink containing alcohol?: Never 3. How often do you have six or more drinks on one occasion?: Never Total Score: 0 Score Reviewed/Action Taken: Yes PAVEL-7 AMB Questionnaire PAVEL-7 Date PAVEL - 7 assessed: 03/02/24 Feeling nervous, anxious, or on edge: 0 = Not at all Not being able to stop or control worryin = Not at all Worrying too much about different things: 0 = Not at all Trouble relaxin = Not at all Being so restless that it is hard to sit still: 0 = Not at all Becoming easily annoyed or irritable: 0 = Not at all Feeling afraid as if something awful might happen: 0 = Not at all Total PAVEL-7 score (0-4 normal; 5-9 mild; 10-14 moderate; 15-21 severe): 0 Source: Developed by Drs. Daniel Arango, Geeta Gallagher, Milton Adams and colleagues, with an educational rocio from [employer]. Review of Systems Const Denies chills, Denies fatigue, Denies fever(s) and Denies headache(s) ENT Denies dysphagia, Denies dizziness, Denies otalgia, Denies headache(s), Denies neck pain, Denies odynophagia and Denies sore throat Card Denies chest pain, Denies irregular heart rhythm, Denies palpitations and Denies dyspnea Resp Denies chest congestion, Denies cough and Denies dyspnea GI Denies abdominal pain, Denies constipation, Denies dysphagia, Denies heartburn, Denies diarrhea, Denies nausea, Denies odynophagia and Denies vomiting Denies urinary frequency, Denies dysuria, Denies urinary incontinence and Denies urinary urgency Musc Reports back pain (on and off over the right side but states they have been very mild), Denies neck pain and Denies numbness Skin/Breast Denies rash Neuro Denies dizziness, Denies headache(s) and Denies numbness Psych Denies anxiety and Denies depression Endo Denies fatigue and Denies palpitations Huan/Lymph Denies easy bruising Physical exam (Primary Care) Vital Signs: Last Vital Signs Pulse 62 03/02/24 12:13 BP 112/62 03/02/24 12:13 Pulse Ox 99 03/02/24 12:13 Oxygen Delivery Method Room Air 03/02/24 12:13 BMI result Body Mass Index 30.3 Tobacco/Smoking Status: Tobacco use Status Tobacco use date assessed 03/02/24 03/02/24 12:18 Patient Tobacco Use Status Never used Tobacco 03/02/24 12:18 e-Cigarette/Vaping Use Never Used 03/02/24 12:18 PHQ-9: PHQ-9 Score PHQ-9: Total score 0 03/02/24 12:34 Depression Screening Interpretation: Negative Thrive Assessment: Date of Thrive Assessment Date Thrive assessed 03/02/24 03/02/24 12:18 Currently or been in a relationship where the following occur: No concerns reported Const General: no acute distress and alert HENMT Ears: TM's normal bilaterally and EAC's normal Throat: Yes posterior oropharynx normal and Yes tonsils normal (no TP congestion noted) Neck Neck: Yes supple and No lymphadenopathy Thyroid: Thyroid normal Resp Auscultation: clear to auscultation bilaterally, no rales and no wheezes Cardio Rate: regular rate Rhythm: regular rhythm Heart sounds: no murmurs GI Palpation (GI): Soft to palpation and nontender Auscultation: normal bowel sounds General: Yes no CVA tenderness Back/Spine/Pelvis Back: no CVA tenderness Thoracic/Lumbar Spine: lumbar spinal tenderness (mild) Skin Rashes: no rashes Extrem General: Yes no clubbing, cyanosis or edema Results Reviewed Results Reviewed: Laboratory Tests 02/22/24 02/22/24 08:27 08:28 WBC 8.6 Hgb 11.3 L Hct 34.9 L Plt Count 282 Sodium 140 Potassium 4.1 Creatinine 1.23 Estimated GFR 42 Fasting Glucose 106 H Hemoglobin A1c % 5.3 Calcium 9.4 AST 24 ALT 7 Triglycerides 125 Cholesterol 173 LDL Cholesterol, Calc 93 HDL Cholesterol 55 25-OH Vitamin D Total 69.8 TSH 3.98 Free T4 0.93 Ur Specific [place]mar 1.020 Urine Protein Negative Urine Glucose (UA) Negative Urine Nitrite Negative Ur Leukocyte Esterase Moderate (2+) H Coding Level of Care Code Est Pt Level 4 (34146) Diagnoses Pure hypercholesterolemia E78.00 Benign essential hypertension I10 Transient ischemic attack (TIA) G45.9 Impaired fasting glucose R73.01 Acquired hypothyroidism E03.9 Vitamin D deficiency E55.9 Degeneration of intervertebral disc of lumbar region with discogenic back pain M51.360 Disc-related pain type: discogenic back pain only Osteopenia, unspecified location M85.80 Osteopenia location: unspecified GERD without esophagitis K21.9 Anxiety F41.9 Obesity (BMI 30-39.9) E66.9 Additional Codes PHQ-9 - 15038 - PHQ-9 Billing: Yes ([id number]) Assessment & Plan Assessment & Plan (1) Pure hypercholesterolemia: Code(s): E78.00 - Pure hypercholesterolemia, unspecified Category: Medical Plan: Results of her labs done last week reviewed and discussed with patient Reinforced low cholesterol diet Continue Simvastatin 20 mg QD Will recheck her labs and fasting lipids in 4 months for follow up (2) Benign essential hypertension: Code(s): I10 - Essential (primary) hypertension Category: Medical Plan: Reinforced low sodium diet - goal is systolic BP of at least 140 mm or less Continue Losartan 50 mg QD, Hydrochlorothiazide 12.5 mg QD and Diltiazem ER 240 mg Q AM (3) Transient ischemic attack (TIA): Code(s): G45.9 - Transient cerebral ischemic attack, unspecified Category: Medical Plan: Patient denies any recurrence of symptoms over the past couple of years Continue anti-platelet Tx with low dose Aspirin 81 mg QD and with aggressive risk factor modification, primarily control of her BP, cholesterol, blood sugar Follow up with neurology as scheduled (4) Impaired fasting glucose: Code(s): R73.01 - Impaired fasting glucose Category: Medical Plan: Her HgbA1c remains normal at 5.3% on her recent labs; was also normal at 5.5% when previously checked Reinforced low calorie diet/exercise as tolerated (5) Acquired hypothyroidism: Code(s): E03.9 - Hypothyroidism, unspecified Category: Medical Plan: Her TSH and free T4 level have both remained normal on her recent labs Continue Levothyroxine 25 mcg QD Will recheck her TFTs again in 4 months for follow up (6) Vitamin D deficiency: Code(s): E55.9 - Vitamin D deficiency, unspecified Category: Medical Plan: Continue Vitamin D3 2000 units twice a week (7) Lumbar degenerative disc disease: Code(s): M51.36 - Other intervertebral disc degeneration, lumbar region Category: Medical Qualifiers: Disc-related pain type: discogenic back pain only Qualified Code(s): M51.360 - Other intervertebral disc degeneration, lumbar region with discogenic back pain only Plan: Reinforced activity and weight lifting restrictions States that she continues to do the back exercises she was previously taught regularly to help manage her back pain, which have been mostly manageable/tolerable lately (8) Osteopenia: Comment: Baseline BMD done in February 2017 showed (+) osteopenia Code(s): M85.80 - Other specified disorders of bone density and structure, unspecified site Category: Medical Qualifiers: Osteopenia location: unspecified Qualified Code(s): M85.80 - Other specified disorders of bone density and structure, unspecified site Plan: Repeat BMD done on 10/26/2023 revealed (+) osteopenia based on the lowest T-score value of -1.7 in the femoral neck - this is mostly unchanged from her previous BMD done in 11/2020 Her 10-YEAR FRACTURE RISK PREDICTION, FRAX score = Major osteoporotic fracture (clinical spine, forearm, hip or shoulder) 13.8% and hip fracture 3.7% Patient is again advised to continue with her Vitamin-D and Calcium supplements as instructed and to try exercising regularly to help keep up her BMD (9) GERD without esophagitis: Code(s): K21.9 - Gastro-esophageal reflux disease without esophagitis Category: Medical Plan: Dietary restrictions reinforced Continue Famotidine 20 mg BID as needed (10) Anxiety: Code(s): F41.9 - Anxiety disorder, unspecified Category: Medical Plan: Continue Clonazepam 0.5 mg once a day as needed (11) Obesity (BMI 30-39.9): Code(s): E66.9 - Obesity, unspecified Category: Medical Plan: Reinforced diet/ exercise as tolerated /lose weight Plan Follow up in 4 months Orders: Orders Comprehensive [place]. Panel Fast 4 Months E78.00 - Pure hypercholesterolemia, unspecified Free T4 (Free Thyroxine) 4 Months E03.9 - Hypothyroidism, unspecified Lipid Panel 4 Months E78.00 - Pure hypercholesterolemia, unspecified Vitamin B12 and Folate 4 Months E53.8 - Deficiency of other specified B group vitamins Complete Blood Count Auto Diff 4 Months D64.9 - Anemia, unspecified Thyroid Stimulating Hormone 4 Months E03.9 - Hypothyroidism, unspecified UA CC w/rflx Micro + Cult 4 Months R30.0 - Dysuria Vitamin D 25-OH Total 4 Months E55.9 - Vitamin D deficiency, unspecified Hemoglobin A1c 4 Months R73.01 - Impaired fasting glucose
[2024-03-02 12:13] VITALS: BP 112/62; PULSE 62; O2SAT 99; BMI 30.3
== END 2024-03-02 12:39 | disposition home or self-care (01) ==
PROVIDERS: PCP Internal Medicine; Visit Provider Internal Medicine
DX: E78.00 Pure hypercholesterolemia, unspecified (principal); I10 Essential (primary) hypertension; G45.9 Transient cerebral ischemic attack, unspecified; R73.01 Impaired fasting glucose; E03.9 Hypothyroidism, unspecified; E55.9 Vitamin D deficiency, unspecified; M51.360 Other intervertebral disc degeneration, lumbar region with discogenic back pain only; E66.811 Obesity, class 1; Z68.30 Body mass index [BMI] 30.0-30.9, adult; M85.80 Other specified disorders of bone density and structure, unspecified site; K21.9 Gastro-esophageal reflux disease without esophagitis; F41.9 Anxiety disorder, unspecified

== ENCOUNTER → 2024-03-02 11:58 | Outpatient (BNVA) | payer MEDICARE, SELFPAY | PROVIDERS: PCP Internal Medicine; Visit Provider Internal Medicine | DX: E78.00 Pure hypercholesterolemia, unspecified (principal); I10 Essential (primary) hypertension; G45.9 Transient cerebral ischemic attack, unspecified; R73.01 Impaired fasting glucose; E03.9 Hypothyroidism, unspecified; E55.9 Vitamin D deficiency, unspecified; M51.360 Other intervertebral disc degeneration, lumbar region with discogenic back pain only; M85.80 Other specified disorders of bone density and structure, unspecified site; K21.9 Gastro-esophageal reflux disease without esophagitis; F41.9 Anxiety disorder, unspecified; E66.9 Obesity, unspecified | CPT/HCPCS: 96127; 99212 ==

== ENCOUNTER 2024-06-28 08:20 | Outpatient (REF) | payer MEDICARE, SELFPAY ==
[2024-06-28 08:45] LABS: MANUAL DIFF FLAG NO
[2024-06-28 09:13] LABS: Basophils Absolute Auto 0.1 X10*3/uL (0.0-0.2); Basophils Percent Auto 0.7 % (0-2); Eosinophils Absolute Auto 0.4 X10*3/uL (0.0-0.4); Eosinophils Percent Auto 3.3 % (0-4); Hematocrit 36.9 % (37.0-47.0); Hemoglobin 11.8 g/dl (12.0-16.0); Imm Gran Abs Auto 0.03 X10*3/uL (0.00-0.03); Imm Gran Pct Auto 0.3 % (0.0-0.4); Lymphocytes Absolute Auto 2.4 X10*3/uL (1.2-4.9); Lymphocytes Percent Auto 22.3 % (20-40); Mean Corpuscular Hemoglobin 29.3 pg (27.0-33.0); Mean Corpuscular Volume 91.6 fL (80.0-98.0); Mean Platelet Volume 11.4 fL (9.4-12.3); Monocytes Absolute Auto 1.1 X10*3/uL (0.1-1.2); Monocytes Percent Auto 10.3 % (2-11); Neutrophils Absolute Auto 6.8 x10*3/uL (2.0-8.3); Neutrophils Percent Auto 63.1 % (45-73); Platelet Count 244 X10*3/uL (160-400); Red Blood Count 4.03 X10*6/uL (4.20-5.50); White Blood Count 10.8 X10*3/uL (4.8-10.8)
[2024-06-28 09:17] LABS: Appearance Urine Clear; Color Urine Yellow; Glucose Urine UA Negative (Negative); Leukocyte Esterase Urine Small (1+) (Negative); Nitrite Urine Positive (Negative); PH 5.5 (5.0-9.0); Specific Gravity - Urine 1.015 (1.005-1.025); UMIC TRIGGER UACC YES; Urine Blood Negative (Negative); Urine Ketones Negative (Negative); Urine Protein Negative (Neg-Trace)
[2024-06-28 09:20] LABS: Bacteria Urine 4+ (None Seen); Hyaline Casts Urine 0-2 /LPF (0-2); RBC Urine 0-2 /HPF (0-2); UACC Culture Trigger YES
[2024-06-28 09:24] LABS: Estimated Average Glucose 108 mg/dL; Hemoglobin A1C 110.3356 umol/L; Hemoglobin A1c % 5.4 % (<6.0); Total Hemoglobin (HGBA1C) 3098.4292 umol/L
[2024-06-28 10:31] LABS: Alanine Aminotransferase 7 U/L (0-31); Albumin Level 3.6 g/dL (3.5-5.0); Alkaline Phosphatase 86 U/L (39-117); Anion Gap 15 (12-20); Aspartate Amino Transferase 24 U/L (5-31); Bilirubin Total 0.4 mg/dL (0.0-1.0); Blood Urea Nitrogen 25 mg/dL (9-16); Calcium 9.4 mg/dL (8.4-10.2); Carbon Dioxide 22 mmol/L (22-29); Chloride 110 mmol/L (96-108); Cholesterol 159 mg/dL (<200); Estimated Glomerular Filt Rate 44; Glucose Fasting 98 mg/dL (60-99); HDL Cholesterol 55 mg/dL (>40); LDL Cholesterol Calculated 84 mg/dL (<100); Potassium 4.3 mmol/L (3.3-5.1); Sodium 143 mmol/L (135-145); Total Protein 7.1 g/dL (6.5-8.0); Triglycerides 102 mg/dL (<150)
[2024-06-28 10:53] LABS: Folate 10.7 ng/mL (> or = 4.0); Vitamin B12 186 pg/mL (200-900)
[2024-06-28 10:54] LABS: Thyroid Stimulating Hormone 3.53 uIU/mL (0.32-4.0); Vitamin D 25-OH Total 83.3 ng/mL (>30)
== END 2024-06-28 08:21 | disposition home or self-care (01) ==
LOC: HO.LAB 08:20
PROVIDERS: PCP Internal Medicine; Visit Provider Internal Medicine
DX: D64.9 Anemia, unspecified (principal); E03.9 Hypothyroidism, unspecified; E78.00 Pure hypercholesterolemia, unspecified; R73.01 Impaired fasting glucose; E53.8 Deficiency of other specified B group vitamins; E55.9 Vitamin D deficiency, unspecified; R30.0 Dysuria
CPT/HCPCS: 36415; 80053; 80061; 81001; 82306; 82607; 82746; 83036; 84439; 84443; 85025; 87086; 87088; 87186

== ENCOUNTER 2024-07-03 12:23 | Outpatient (AMB) | payer MEDICARE, SELFPAY ==
[2024-07-03 12:39] VITALS: BP 134/86; PULSE 70; O2SAT 97; BMI 30.8
--- NOTE | 2024-07-03 12:39 | A.OFFPC_ITS ---
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 Accompanied by: Self / Same As Patient Allergies levofloxacin Allergy (Unknown, Verified 07/03/24 12:52) Unknown penicillin V Allergy (Unknown, Verified 07/03/24 12:52) Unknown Sulfa (Sulfonamide Antibiotics) Allergy (Unknown, Verified 07/03/24 12:52) Unknown Medication List - Last Reconciled 07/03/24 by Duong Ramirez MD aspirin 81 mg PO DAILY cholecalciferol (vitamin D3) 125 mcg PO DAILY 90 days cholecalciferol (vitamin D3) 50 mcg PO DAILY 90 days clonazepam 0.5 mg PO DAILY PRN 30 days diltiazem HCl CD (Cartia XT) 240 mg PO QAM 90 days estradiol 1 mg PO DAILY 30 days hydrochlorothiazide 12.5 mg PO DAILY levothyroxine 25 mcg PO DAILY 30 days losartan 50 mg PO DAILY 90 days oxybutynin chloride 5 mg PO BEDTIME 90 days simvastatin 20 mg PO BEDTIME 90 days Tobacco use date assessed: 07/03/24 Fall risk assessment: No Falls in past year Last assessed Fall Risk: 07/03/24 Dental Screening Dental Screen Date: 07/03/24 Did you have a dental visit in the last 12 months?: Yes Did you have a dental problem in the last 6 months where you did not have access to dental care?: No Was dental information given to patient?: Patient has dentist HPI annual exam[facility] - see comments HPI Details Patient comes in today for her annual physical examination States that she feels okay She denies any headaches or dizziness Denies any chest pains, no SOB No nausea/vomiting, no abdominal pain No change in bowel habits noted She denies any acute urinary symptoms She had her follow up labs done last week - to discuss her results She had her BMD last done in October 2023 States that she has never had a colonoscopy done in the past by choice At her current age, she also does not go for her yearly gynecology exam/pap smear and annual mammography anymore - she had ALEISHA-BSO back in 1989 COUNTS INCLUDE 234 BEDS AT [facility] Medical History Obesity (BMI 30-39.9) Impaired fasting glucose Elevated TSH Acquired hypothyroidism Colonoscopy refused Post-menopausal Transient ischemic attack (TIA) Anxiety GERD without esophagitis Osteopenia Lumbar degenerative disc disease Vitamin D deficiency Pure hypercholesterolemia Benign essential hypertension Surgical History History of surgery History of total abdominal hysterectomy and bilateral salpingo-oophorectomy Family History Father Cancer Mother Cancer Hypertension Chronic mental illness Brother No problems noted. Sister No problems noted. Social History Housing: House Alcohol intake: current Alcohol intake frequency: holidays/special occasions only Alcohol type: wine Patient Tobacco Use Status: Never used Tobacco e-Cigarette/Vaping Use: Never Used Second Hand Smoke Exposure: Yes service: No Current occupational status: retired Cognitive needs: No Hearing needs: No Vision needs: Yes Questionnaire PHQ-9 Over the last 2 weeks, how often have you been bothered by any of the following problems? 1. Little interest or pleasure in doing things: not at all 2. Feeling down, depressed, or hopeless: not at all 3. Trouble falling or staying asleep, or sleeping too much: not at all 4. Feeling tired or having little energy: several days 5. Poor appetite or overeating: not at all 6. Feeling bad about yourself - or that you are a failure or have let yourself or your family down: not at all 7. Trouble concentrating on things, such as reading the newspaper or watching television: several days 8. Moving or speaking so slowly that other people could have noticed. Or the opposite - being so fidgety or restless that you have been moving around a lot more than usual: not at all 9. Thoughts that you would be better off or of hurting yourself in some way: not at all Total score: 2 Depression Screening Interpretation: Negative Depression Screening Done: Yes 52148 - PHQ-9 Billing: Yes Source: Developed by Geeta ArmstrongW. Elliott, Milton Adams and colleagues, with an educational rocio from [employer]. Thrive Questionnaire Date Thrive assessed: 07/03/24 I am a: Patient What is your living situation today?: I have a steady place to live Within the past 12 months, did the food you bought not last and you didn't have the money to get more?: Never true Within the past 12 months, did you worry whether your food would run out before you got money to buy more?: Never true Do you have trouble paying for medicines?: No Do you have trouble getting transportation to medical appointments?: No Do you have trouble paying your heating and electricity bill?: No Do you have trouble taking care of your child, family member or friend?: No Do you have trouble with day-to-day activities such as bathing, preparing meals, shopping, managing finances, etc.?: Yes Are you currently unemployed and looking for a job?: No Are you interested in more education?: No Please select the resources that you would like help with: None Currently or been in a relationship where the following occur: No concerns reported THRIVE Score: 0 AUDIT C Alcohol Use Questionnaire (AUDIT-C) 1. How often do you have a drink containing alcohol?: Never 3. How often do you have six or more drinks on one occasion?: Never Total Score: 0 Score Reviewed/Action Taken: Yes PAVEL-7 AMB Questionnaire PAVEL-7 Date PAVEL - 7 assessed: 07/03/24 Feeling nervous, anxious, or on edge: 1 = Several days Not being able to stop or control worryin = More than half the days Worrying too much about different things: 1 = Several days Trouble relaxin = Not at all Being so restless that it is hard to sit still: 1 = Several days Becoming easily annoyed or irritable: 1 = Several days Feeling afraid as if something awful might happen: 0 = Not at all Total PAVEL-7 score (0-4 normal; 5-9 mild; 10-14 moderate; 15-21 severe): 6 Source: Developed by Drs. Daniel Arango, Milton Keating and colleagues, with an educational rocio from [employer]. Review of Systems Const Denies chills, Reports fatigue, Denies fever(s) and Denies headache(s) ENT Denies dysphagia, Denies dizziness, Denies otalgia, Denies headache(s), Denies neck pain, Denies odynophagia and Denies sore throat Card Denies chest pain, Denies irregular heart rhythm, Denies palpitations and Denies dyspnea Resp Denies chest congestion, Denies cough and Denies dyspnea GI Denies abdominal pain, Denies constipation, Denies dysphagia, Denies heartburn, Denies diarrhea, Denies nausea, Denies odynophagia and Denies vomiting Denies difficulty voiding, Denies dysuria, Denies urinary incontinence and Denies urinary urgency Musc Reports abnormal gait (unsteady lately), Reports back pain (on and off over the right side but states they have been very mild), Denies neck pain and Denies numbness Skin/Breast Denies rash Neuro Reports abnormal gait (unsteady lately), Denies dizziness, Denies headache(s) and Denies numbness Psych Denies anxiety and Denies depression Endo Reports fatigue and Denies palpitations Huan/Lymph Denies easy bruising Physical exam (Primary Care) Vital Signs: Last Vital Signs Pulse 70 07/03/24 12:39 BP 134/86 07/03/24 12:39 Pulse Ox 97 07/03/24 12:39 Oxygen Delivery Method Room Air 07/03/24 12:39 BMI result Body Mass Index 30.8 Tobacco/Smoking Status: Tobacco use Status Tobacco use date assessed 07/03/24 07/03/24 12:46 Patient Tobacco Use Status Never used Tobacco 07/03/24 12:46 e-Cigarette/Vaping Use Never Used 07/03/24 12:46 PHQ-9: PHQ-9 Score PHQ-9: Total score 2 07/03/24 12:46 Depression Screening Interpretation: Negative Thrive Assessment: Date of Thrive Assessment Date Thrive assessed 07/03/24 07/03/24 12:46 Currently or been in a relationship where the following occur: No concerns reported Const General: no acute distress and alert Orientation/consciousness: patient oriented x3 HENMT Head: Yes normocephalic and Yes atraumatic Ears: TM's normal bilaterally and EAC's normal General nose exam: No nasal discharge present Face and sinus: Yes normal facial exam and Yes sinuses nontender Teeth and gingiva: dentition normal Throat: Yes posterior oropharynx normal and Yes tonsils normal (no TP congestion noted) Eyes Eyelids: Yes eyelids normal Conjunctivae: conjunctivae normal Pupils: Equal, round and reactive pupils present EOM: EOMs intact bilaterally Neck Neck: Yes supple and No lymphadenopathy Thyroid: Thyroid normal Resp Auscultation: clear to auscultation bilaterally, no rales and no wheezes Cardio Rate: regular rate Rhythm: regular rhythm Heart sounds: no murmurs GI Palpation (GI): Soft to palpation and nontender Auscultation: normal bowel sounds General: Yes no CVA tenderness Back/Spine/Pelvis Back: no CVA tenderness Thoracic/Lumbar Spine: lumbar spinal tenderness (mild) Skin Lesions: no lesions Rashes: no rashes Neuro General: patient oriented x3, moves all extremities, no focal motor deficits and CN's II-XI intact bilaterally Cranial nerves: Yes Equal, round and reactive pupils present Cognition (Neuro): normal cognition Gait exam (Neuro): Normal gait present Extrem General: Yes no clubbing, cyanosis or edema Results Reviewed Results Reviewed: Laboratory Tests 06/28/24 06/28/24 08:44 08:45 WBC 10.8 Hgb 11.8 L Hct 36.9 L Plt Count 244 Sodium 143 Potassium 4.3 Creatinine 1.18 Estimated GFR 44 Fasting Glucose 98 Hemoglobin A1c % 5.4 Calcium 9.4 AST 24 ALT 7 Triglycerides 102 Cholesterol 159 LDL Cholesterol, Calc 84 HDL Cholesterol 55 Vitamin B12 186 L 25-OH Vitamin D Total 83.3 TSH 3.53 Free T4 0.90 Ur Specific Cascade 1.015 Urine Protein Negative Urine Glucose (UA) Negative Urine Blood Negative Urine Nitrite Positive H Ur Leukocyte Esterase Small (1+) H Coding Level of Care Code Est Pt Prev Care >65y(07424) Diagnoses Annual physical exam Z00.00 Pure hypercholesterolemia E78.00 Benign essential hypertension I10 Transient ischemic attack (TIA) G45.9 Impaired fasting glucose R73.01 Acquired hypothyroidism E03.9 Vitamin D deficiency E55.9 Degeneration of intervertebral disc of lumbar region with discogenic back pain M51.360 Disc-related pain type: discogenic back pain only Osteopenia, unspecified location M85.80 Osteopenia location: unspecified GERD without esophagitis K21.9 Anxiety F41.9 Obesity (BMI 30-39.9) E66.9 Vitamin B12 deficiency (non anemic) E53.8 Additional Codes PHQ-9 - 59069 - PHQ-9 Billing: Yes ([id number]) Assessment & Plan Assessment & Plan (1) Annual physical exam: Code(s): Z00.00 - Encounter for general adult medical examination without abnormal findings Category: Medical Plan: Results of her labs done last week reviewed and discussed with patient She had her BMD last done in October 2023 States that she has never had a colonoscopy done in the past by choice At her current age, she also does not go for her yearly gynecology exam/pap smear and annual mammography anymore - she had ALEISHA-BSO back in 1989 (2) Pure hypercholesterolemia: Code(s): E78.00 - Pure hypercholesterolemia, unspecified Category: Medical Plan: Reinforced low cholesterol diet Continue Simvastatin 20 mg QD Will recheck her labs and fasting lipids in 4 months for follow up (3) Benign essential hypertension: Code(s): I10 - Essential (primary) hypertension Category: Medical Plan: Reinforced low sodium diet - goal is systolic BP of at least 140 mm or less Continue Losartan 50 mg QD, Hydrochlorothiazide 12.5 mg QD and Diltiazem ER 240 mg Q AM (4) Transient ischemic attack (TIA): Code(s): G45.9 - Transient cerebral ischemic attack, unspecified Category: Medical Plan: Patient denies any recurrence of symptoms over the past couple of years Continue anti-platelet Tx with low dose Aspirin 81 mg QD and with aggressive risk factor modification, primarily control of her BP, cholesterol, blood sugar Follow up with neurology as scheduled (5) Impaired fasting glucose: Code(s): R73.01 - Impaired fasting glucose Category: Medical Plan: Her HgbA1c remains normal at 5.4% on her recent labs; was also normal at 5.5% when previously checked Reinforced low calorie diet/exercise as tolerated (6) Acquired hypothyroidism: Code(s): E03.9 - Hypothyroidism, unspecified Category: Medical Plan: Her TSH and free T4 level have both remained normal on her recent labs done last week Continue Levothyroxine 25 mcg QD Will recheck her TFTs again in 4 months for follow up (7) Vitamin D deficiency: Code(s): E55.9 - Vitamin D deficiency, unspecified Category: Medical Plan: Continue Vitamin D3 2000 units twice a week (8) Lumbar degenerative disc disease: Code(s): M51.36 - Other intervertebral disc degeneration, lumbar region Category: Medical Qualifiers: Disc-related pain type: discogenic back pain only Qualified Code(s): M51.360 - Other intervertebral disc degeneration, lumbar region with discogenic back pain only Plan: Reinforced activity and weight lifting restrictions States that she continues to do the back exercises she was previously taught regularly to help manage her back pain, which have been mostly manageable/tolerable lately (9) Osteopenia: Comment: Baseline BMD done in February 2017 showed (+) osteopenia Code(s): M85.80 - Other specified disorders of bone density and structure, unspecified site Category: Medical Qualifiers: Osteopenia location: unspecified Qualified Code(s): M85.80 - Other specified disorders of bone density and structure, unspecified site Plan: Repeat BMD done on 10/26/2023 revealed (+) osteopenia based on the lowest T-score value of -1.7 in the femoral neck - this is mostly unchanged from her previous BMD done in 11/2020 Her 11-YEAR FRACTURE RISK PREDICTION, FRAX score = Major osteoporotic fracture (clinical spine, forearm, hip or shoulder) 13.8% and hip fracture 3.7% Patient is again advised to continue with her Vitamin-D and Calcium supplements as instructed and to try exercising regularly to help keep up her BMD (10) GERD without esophagitis: Code(s): K21.9 - Gastro-esophageal reflux disease without esophagitis Category: Medical Plan: Dietary restrictions reinforced Continue Famotidine 20 mg BID as needed (11) Anxiety: Code(s): F41.9 - Anxiety disorder, unspecified Category: Medical Plan: Continue Clonazepam 0.5 mg once a day as needed (12) Obesity (BMI 30-39.9): Code(s): E66.9 - Obesity, unspecified Category: Medical Plan: Reinforced diet/ exercise as tolerated /lose weight although with her recent unsteadiness, this may not be practical or realistic (13) Vitamin B12 deficiency (non anemic): Code(s): E53.8 - Deficiency of other specified B group vitamins Category: Medical Plan: She is advised that her Vitamin B12 level was low on her recent labs and this may be contributing to her recent unsteadiness when walking lately Will have her start taking Vitamin B12 1000 mcg QD Advised patient that she can actually get this OTC without a prescription if her insurance will not cover the Rx Plan Follow up in 4 months Orders: Orders Complete Blood Count Auto Diff 4 Months D64.9 - Anemia, unspecified UA CC w/rflx Micro + Cult 4 Months R30.0 - Dysuria Lipid Panel 4 Months E78.00 - Pure hypercholesterolemia, unspecified Comprehensive [place]. Panel Fast 4 Months E78.00 - Pure hypercholesterolemia, unspecified Hemoglobin A1c 4 Months R73.01 - Impaired fasting glucose Free T4 (Free Thyroxine) 4 Months E03.9 - Hypothyroidism, unspecified Thyroid Stimulating Hormone 4 Months E03.9 - Hypothyroidism, unspecified Vitamin D 25-OH Total 4 Months E55.9 - Vitamin D deficiency, unspecified Vitamin B12 and Folate 4 Months E53.8 - Deficiency of other specified B group vitamins Medications: New cyanocobalamin (vitamin B-12) 1,000 mcg PO DAILY 90 days 90 tabs 3RF E53.8 - Deficiency of other specified B group vitamins
== END 2024-07-03 13:12 | disposition home or self-care (01) ==
LOC: HO.HMCH 12:23
PROVIDERS: PCP Internal Medicine; Visit Provider Internal Medicine
DX: Z00.00 Encounter for general adult medical examination without abnormal findings (principal); E78.00 Pure hypercholesterolemia, unspecified; E66.9 Obesity, unspecified; Z68.30 Body mass index [BMI] 30.0-30.9, adult; I10 Essential (primary) hypertension; G45.9 Transient cerebral ischemic attack, unspecified; R73.01 Impaired fasting glucose; E03.9 Hypothyroidism, unspecified; E55.9 Vitamin D deficiency, unspecified; M51.360 Other intervertebral disc degeneration, lumbar region with discogenic back pain only; M85.80 Other specified disorders of bone density and structure, unspecified site; K21.9 Gastro-esophageal reflux disease without esophagitis

== ENCOUNTER → 2024-07-03 12:23 | Outpatient (BNVA) | payer MEDICARE, SELFPAY | PROVIDERS: PCP Internal Medicine; Visit Provider Internal Medicine | DX: Z00.00 Encounter for general adult medical examination without abnormal findings (principal); E78.00 Pure hypercholesterolemia, unspecified; I10 Essential (primary) hypertension; G45.9 Transient cerebral ischemic attack, unspecified; R73.01 Impaired fasting glucose; E03.9 Hypothyroidism, unspecified; E55.9 Vitamin D deficiency, unspecified; M51.360 Other intervertebral disc degeneration, lumbar region with discogenic back pain only; M85.80 Other specified disorders of bone density and structure, unspecified site; F41.9 Anxiety disorder, unspecified; K21.9 Gastro-esophageal reflux disease without esophagitis; E53.8 Deficiency of other specified B group vitamins; E66.9 Obesity, unspecified; Z68.30 Body mass index [BMI] 30.0-30.9, adult; Z71.3 Dietary counseling and surveillance | CPT/HCPCS: 96127; 99397 ==

== ENCOUNTER 2024-10-07 10:29 | Inpatient (IN) | payer MEDICARE, SELFPAY ==
[2024-10-07] VITALS (12 sets, daily range): BP systolic 93–154; BP diastolic 35–72; PULSE 50–78; RESP 15–18; TEMP 35.5–36.9; O2SAT 93–100; BMI 30.5
--- NOTE | ~2024-10-07 | CT_ITS ---
CLINICAL HISTORY: syncope, r o ich CT head without contrast Comparison: None provided Findings: No intra-axial mass, midline shift, hydrocephalus, or acute hemorrhage. [id number] age-related cerebral hemispheric white matter ischemic changes. The visualized paranasal sinuses and mastoid air cells are normal. Bilateral cataract surgery. No skull fracture. IMPRESSION: 1. No acute intracranial findings. This document has been electronically signed by: Kary Meza MD on 10/07/2024 11:42:04
--- NOTE | ~2024-10-07 | XR_ITS ---
CLINICAL HISTORY: weakness, syncope 1 view chest x-ray Comparison: None provided Findings: The lungs are clear. Heart size is normal. No acute fracture. Right-sided thoracic spine curvature. IMPRESSION: 1. No acute findings. This document has been electronically signed by: Kary Meza MD on 10/07/2024 11:55:44
--- NOTE | 2024-10-07 10:51 | ED_ITS ---
HPI - Syncope General Chief Complaint: Syncope Stated Complaint: WEAK X2D,MORE ON ARRIVAL PER EMS Time Seen by Provider: 10/07/24 10:35 Source: patient and EMS Mode of arrival: EMS Limitations: no limitations History of Present Illness ED Provider: Lien Neves APRN HPI narrative: 83 yo female with history of HTN who presents the ER after having a witnessed syncopal episode while at the grocery store. Per patient she was standing at the checkout line when she started to feel like both of her legs were weak and giving out on her. This is associated with feeling lightheaded and dizzy. She was lower to the ground by her who reports a brief period of unresponsiveness. Patient then roused independently. There was no reports of shaking activity or incontinence. On arousing the patient was alert and oriented. She had 1 episode of vomiting prior to arrival and 1 vomiting episode while she arrived in the emergency room. She has no complaints. She denies headache, chest pain, shortness of breath, dizziness, abdominal pain, diarrhea. She denies any recent illnesses. She has been eating and drinking normally. She does report that she has struggled with lower extremity weakness bilaterally over the last 6 months. Related Data Home Medications ?Medication ?Instructions ?Recorded ?Confirmed levothyroxine 25 mcg tablet 25 mcg PO DAILY@0600 10/0710/07/24 multivitamin 1 tab PO DAILY 10/07/2409/16 simvastatin 20 mg tablet 20 mg PO DAILY 10/07/2409/16 Previous Rx's ?Medication ?Instructions ?Recorded aspirin 81 mg tablet,delayed 81 mg PO DAILY #90 tabs 0 05/29/20 release hydrochlorothiazide 12.5 mg capsule 12.5 mg PO DAILY # 90 caps 02/13/24 losartan 50 mg tablet 50 mg PO DAILY 90 days #90 t abs 02/13/24 diltiazem HCl 240 mg 240 mg PO QAM 90 days #90 ca ps 06/19/24 capsule,extended release 24 hr (Cartia XT) cyanocobalamin (vitamin B-12) 1,000 mcg PO DAILY 90 da ys #90 tabs 07/03/24 1,000 mcg tablet cholecalciferol (vitamin D3) 50 50 mcg PO DAILY 90 day s #90 caps 08/07/24 mcg (2,000 unit) capsule clonazepam 0.5 mg tablet 0.5 mg PO DAILY PRN anxiety 30 09/11/24 days #30 tabs estradiol 1 mg tablet 1 mg PO DAILY 30 days #90 ta bs 09/22/24 Allergies Allergy/AdvReac Type Severity Reaction Status Date / Time levofloxacin Allergy Unknown Unknown Verified 10/07/24 10:44 penicillin V Allergy Unknown Unknown Verified 10/07/24 10:44 Sulfa (Sulfonamide Allergy Unknown Unknown Verified 10/07/24 10:44 Antibiotics) Review of Systems 2 Review of Systems: Yes all other systems are reviewed and are negative Constitutional: Constitutional: Reports no additional constitutional complaints, Denies body ache(s), Denies chills, Denies fever(s), Denies headache(s) and Reports weakness Eyes: Eyes: Reports no additional eye complaints and Denies change in vision ENT: Reports system reviewed and no additional complaints, except as documented, Denies dizziness, Denies headache(s), Denies nasal congestion, Denies nasal discharge and Denies neck pain Cardiovascular: Cardiovascular: Reports no additional cardiovascular complaints, Denies chest pain, Denies leg edema and Denies dyspnea Respiratory: Respiratory: Reports no additional respiratory complaints, Denies cough and Denies dyspnea Gastrointestinal: Gastrointestinal: Reports no additional gastrointestinal complaints, Denies abdominal pain, Denies diarrhea, Reports nausea and Reports vomiting Genitourinary: Genitourinary: Reports no additional female genitourinary complaints and Denies urinary incontinence Musculoskeletal: Musculoskeletal: Reports no additional musculoskeletal complaints, Denies back pain, Denies arthralgias, Denies joint swelling, Denies neck pain, Denies numbness and Denies tingling Integumentary/Breasts: Skin/Breast: Reports system reviewed and no additional complaints, except as docu and Denies rash Neurologic: Reports system reviewed and no additional complaints, except as documented, Denies Abnormal speech present, Denies dizziness, Denies headache(s), Denies numbness, Denies tingling and Reports weakness PMFSH Past Medical History Attestation statement: The following information was validated with the patient. Source: old records reviewed and nursing notes reviewed Medical History Vitamin B12 deficiency (non anemic) Obesity (BMI 30-39.9) Impaired fasting glucose Elevated TSH Acquired hypothyroidism Colonoscopy refused Post-menopausal Transient ischemic attack (TIA) Anxiety GERD without esophagitis Osteopenia Lumbar degenerative disc disease Vitamin D deficiency Pure hypercholesterolemia Benign essential hypertension Surgical History History of surgery History of total abdominal hysterectomy and bilateral salpingo-oophorectomy Family History Family History Father Cancer Mother Cancer Hypertension Chronic mental illness Brother No problems noted. Sister No problems noted. Social History Social History Housing: House Alcohol intake: current Alcohol intake frequency: holidays/special occasions only Alcohol type: wine Patient Tobacco Use Status: Never used Tobacco Smoked in Last 30 Days: No e-Cigarette/Vaping Use: Never Used Second Hand Smoke Exposure: Yes Use of substances other than those prescribed or required for medical reasons: No Advance Directives: No Advance Directives Information Provided: Yes Do you have a plan to hurt others: No Plan Nutrition Risks: No Nutritional Risk service: No Current occupational status: retired Cognitive needs: No Hearing needs: No Vision needs: Yes Physical Exam 2 Vital Signs: Vital Signs: Last Vital Signs Temp 96.6 F L 10/07/24 15:30 Pulse 54 10/07/24 14:16 Resp 15 10/07/24 14:16 BP 133/72 10/07/24 14:16 Pulse Ox 97 10/07/24 14:16 O2 Del Method Room Air 10/07/24 14:16 BMI result Body Mass Index 30.5 Const: General: cooperative, healthy appearing, comfortable and no acute distress Orientation/consciousness: patient oriented x3 Limitations: no limitations HEENT: Head: Yes normal to inspection Ears: hearing grossly normal bilaterally and TM's normal bilaterally General nose exam: Normal external nose present Face and sinus: Yes normal facial exam Mouth: Normal oral and palatal mucosa present Throat: Yes posterior oropharynx normal, Yes tonsils normal and Yes uvula midline Eyes: General: appearance normal, both eyes and all related structures P upils: Equal, round and reactive pupils present Neck: Neck: Yes normal visual inspection, Yes full ROM, Yes no lymphadenopathy and Yes no meningeal signs Chest: Chest palpation & inspection: normal inspection of the chest Resp: Effort & Inspection: normal respiratory effort Auscultation: clear to auscultation bilaterally Cardio: Rate: regular rate Rhythm: regular rhythm Peripheral pulses: P eripheral pulses 2+ throughout GI: Inspection: Yes normal to inspection Palpation (GI): Soft to palpation and nontender Auscultation: normal bowel sounds Back/Spine/Pelvis: Thoracic/Lumbar Spine: thoracic and lumbar spine normal to inspection Skin: General skin exam: no rashes or lesions noted Neuro: General: patient oriented x3, moves all extremities, no meningeal signs, no focal motor deficits and normal sensation to monofilament Cranial nerves: Yes CN's II-XII intact bilaterally, Yes Equal, round and reactive pupils present, Yes Bilaterally intact EOM present, Yes Nystagmus not present, Yes Normal facial strength present and Yes Midline tongue present Cognition (Neuro): normal cognition Speech: No Abnormal speech present Motor exam (neuro): 5/5 motor strength present throughout Sensory Exam: Normal double simultaneous stimulation for sensation Extrem: General: Yes normal to inspection, Yes no calf tenderness and No pedal edema NIH Stroke Scale Internal: Initial- Upon Arrival Level of Consciousness: Alert Level of Consciousness Questions: Answers both questions correctly Level of Consciousness Commands: Performs both tasks correctly Best Gaze: Normal Visual: No visual loss Facial Palsy: Normal Motor Arm (Right): No drift Motor Arm (Left): No drift Motor Leg (Right): No drift Motor Leg (Left): No drift Limb Ataxia: Absent Sensory: Normal Best Language: No aphasia Dysarthia: Normal Extinction and Inattention: No abnormality Score: 0 Course Course Course Narrative: 1350-patient now has hypothermia with an elevated lactic acid and leukocytosis. UA is consistent with UTI. At this time infection is suspected. Antibiotics ordered. Will admit patient to medicine Medications Administered Discontinued Medications Generic Name Dose Route Start Last Admin Trade Name Freq PRN Reason Stop Dose Admin Ceftriaxone Sodium 2 gm 10/07/24 13:48 10/07/24 14:06 Ceftriaxone Sodium 2 Gm Vial IVPUSH 10/07/24 13:49 2 gm ONCE ONE Administration Ceftriaxone Sodium 1 gm 10/07/24 14:22 10/07/24 14:42 Ceftriaxone Sodium 1 Gm Vial IVPUSH 10/07/24 14:23 1 gm ONCE ONE Administration Sodium Chloride 500 mls @ 999 mls/hr 10/07/24 12:22 10/07/24 13:41 Ns IV 10/07/24 12:52 Infused .Q31M STA Infusion Ondansetron HCl 4 mg 10/07/24 11:04 10/07/24 11:30 Ondansetron Hcl 4 Mg/2 Ml Vial IVPUSH 10/07/24 11:05 4 mg ONCE ONE Administration Medical Decision Making Medical Decision Making MDM Narrative: 83 yo female with history of HTN who presents the ER after having a witnessed syncopal episode while at the grocery store. Per patient she was standing at the checkout line when she started to feel like both of her legs were weak and giving out on her. This is associated with feeling lightheaded and dizzy. She was lower to the ground by her who reports a brief period of unresponsiveness. Patient then roused independently. There was no reports of shaking activity or incontinence. On arousing the patient was alert and oriented. She had 1 episode of vomiting prior to arrival and 1 vomiting episode while she arrived in the emergency room. She has no complaints. She denies headache, chest pain, shortness of breath, dizziness, abdominal pain, diarrhea. She denies any recent illnesses. She has been eating and drinking normally. She does report that she has struggled with lower extremity weakness bilaterally over the last 6 months. On arrival patient had an episode of N/V. Abdomen is soft and nontender. +BS. Normal neuro exam. NIH 0. VSS. Will obtain labs, EKG, CXR, CT head, [facility] Differential Diagnosis Differential Diagnoses: The differential diagnosis associated with the presentation includes Orthostatic hypotension, arrhythmia, ACS SAH Metabolic cause Admission/Observation Consideration of admission/observation: Escalation of care including admission/observation considered See course of care Consult Healthcare Provider Management of the patient was discussed with: [facility] (accepted) Lab Data [facility] Lab Attestation statement: I reviewed the patient's lab results. 10/07/24 11:54 10/07/24 11:54 Labs: Lab Results 10/07/24 10/07/24 10/07/24 Range/Units 11:30 11:54 13:33 WBC 11.5 H (4.8-10.8) X10*3/uL RBC 3.99 L (4.20-5.50) X10*6/uL Hgb 11.6 L (12.0-16.0) g/dl Hct 36.4 L (37.0-47.0) % MCV 91.2 (80.0-98.0) fL MCH 29.1 (27.0-33.0) pg MCHC 31.9 (31.0-35.0) g/dl RDW 14.4 (11.0-16.0) % Plt Count 251 (160-400) X10*3/uL MPV 11.4 (9.4-12.3) fL Immature Gran % (Auto) 0.3 (0.0-0.4) % Neut % (Auto) 76.4 H (45-73) % Lymph % (Auto) 14.8 L (20-40) % [place] % (Auto) 6.9 (2-11) % Eos % (Auto) 1.0 (0-4) % Baso % (Auto) 0.6 (0-2) % Lymph # (Auto) 1.7 (1.2-4.9) X10*3/uL [place] # (Auto) 0.8 (0.1-1.2) X10*3/uL Eos # (Auto) 0.1 (0.0-0.4) X10*3/uL Baso # (Auto) 0.1 (0.0-0.2) X10*3/uL Abs Immat Gran (auto) 0.04 H (0.00-0.03) X10*3/uL Absolute Neuts (auto) 8.8 H (2.0-8.3) x10*3/uL Absolute Nucleated RBC 0.000 (0.0-0.012) X10*3/uL Nucleated RBC % (auto) 0.0 (0.0-0.2) /100WBC PT 11.0 (10.9-12.4) SEC INR 1.0 (0.9-1.1) Sodium 143 (135-145) mmol/L Potassium 4.2 (3.3-5.1) mmol/L Chloride 109 H (96-108) mmol/L Carbon Dioxide 22 (22-29) mmol/L Anion Gap 16 (12-20) BUN 32 H (9-16) mg/dL Creatinine 1.39 (0.5-1.4) mg/dL Estim Creat Clear Calc 26.2 Estimated GFR 36 POC Glucose 167 H (60-115) mg/dL Random Glucose 165 H (60-115) mg/dL Lactic Acid 2.1 H* (0.5-2.0) mmol/L Calcium 9.7 (8.4-10.2) mg/dL Magnesium 1.9 (1.6-2.6) mg/dL Total Bilirubin 0.4 (0.0-1.0) mg/dL Direct Bilirubin 0.1 (0.0-0.5) mg/dL AST 28 (5-31) U/L ALT < 6 (0-31) U/L Alkaline Phosphatase 85 (39-117) U/L Troponin I High Sens 7.4 (<3.5-17.0) ng/L C-Reactive Protein 0.32 (< or = 0.50) mg/dL Total Protein 7.1 (6.5-8.0) g/dL Albumin 3.7 (3.5-5.0) g/dL Urine Color Yellow Urine Appearance Clear Urine pH 5.5 (5.0-9.0) Ur Specific [place] 1.020 (1.005-1.025) Urine Protein Trace (Neg-Trace) mg/dL Urine Glucose (UA) Negative (Negative) mg/dL Urine Ketones Negative (Negative) mg/dL Urine Blood Negative (Negative) Urine Nitrite Positive H (Negative) Ur Leukocyte Esterase Moderate (2+) H (Negative) Urine RBC 3-5 H (0-2) /HPF Urine WBC 21-50 H (0-5) /HPF Ur Squamous Epith Cells 0-2 (0-2) /HPF Urine Bacteria 3+ (None Seen) Hyaline Casts 11-20 (0-2) /LPF Influenza Type A (PCR) NEGATIVE (Negative) Influenza Type B (PCR) NEGATIVE (Negative) RSV RNA Qual (PCR) NEGATIVE (Negative) SARS-CoV-2 RNA (RT-PCR) NEGATIVE (Negative) Independent Interpretation I performed an independent interpretation of an: EKG, Plain X-Ray and CT Scan Interpretation: I independently reviewed the EKG which shows normal sinus rhythm with a rate of 61, right bundle branch block I independently viewed the CT scan/CXR agree with the radiology report Radiology Impression Discussion of test interpretation with radiology: I have reviewed the radiologist's reading. Radiologist Impression: [address] [address] [address] Scan Report Signed Patient: Barbara Murray MR#: [id number] : 1940 Acct:[id number] Age/Sex: 83 / F ADM Date: 10/07/24 Loc: .ED Attending Dr: Ordering Physician: Lien Neves NP Date of Service: 10/07/24 Procedure(s): CT head/brain wo IV con Accession Number(s): [id number] cc: Lien Neves [employer]ACTER ACTOR~ Report Number: [id number]: Total DLP = 586.00 mGy-cm CLINICAL HISTORY: syncope, r o ich CT head without contrast Comparison: None provided Findings: No intra-axial mass, midline shift, hydrocephalus, or acute hemorrhage. [id number] age-related cerebral hemispheric white matter ischemic changes. The visualized paranasal sinuses and mastoid air cells are normal. Bilateral cataract surgery. No skull fracture. IMPRESSION: 1. No acute intracranial findings. [facility] [address] [place] [id number] XRay Report Signed Patient: Barbara Murray MR#: [id number] : 1940 Acct:[id number] Age/Sex: 83 / F ADM Date: 10/07/24 Loc: .ED Attending Dr: Ordering Physician: Lien Neves NP Date of Service: 10/07/24 Procedure(s): XR chest 1V Accession Number(s): [id number] cc: Lien Neves NP~ CLINICAL HISTORY: weakness, syncope 1 view chest x-ray Comparison: None provided Findings: The lungs are clear. Heart size is normal. No acute fracture. Right-sided thoracic spine curvature. IMPRESSION: 1. No acute findings. This document has been marichuy Critical Care Time Critical Care Time Critical Care Time: Yes Total Critical Care Time: 60 Attestation: Time includes: direct patient care, patient reassessment, coordination of patient care, interpretation of data , review of patient's medical records, medical consultation and documentation of patient care. Discharge Plan Discharge Clinical Impression: UTI (urinary tract infection), Weakness, Leukocytosis, Elevated lactic acid level Patient Disposition: Admitted As Inpatient Interventions: Admission Worksheet (ED) Last Done: 10/07/24 15:17
--- NOTE | 2024-10-07 11:03 | ECG_ITS ---
Test Reason : N/V/FALL Blood Pressure : */* mmHG Vent. Rate : 61 BPM Atrial Rate : 61 BPM P-R Int : 182 ms QRS Dur : 148 ms QT Int : 466 ms P-R-T Axes : 35 -4 13 degrees QTcB Int : 469 ms Normal sinus rhythm Right bundle branch block Abnormal ECG When compared with ECG of 28-May-2020 10:03, Questionable change in QRS axis Referred By: Lien Neves Electronically Signed By: VIELKA NAJERA
[2024-10-07 11:34] LABS: Glucose, Whole Blood 167 mg/dL (60-115)
[2024-10-07 12:01] LABS: MANUAL DIFF FLAG NO
[2024-10-07 12:05] LABS: Hematocrit 36.4 % (37.0-47.0); Hemoglobin 11.6 g/dl (12.0-16.0); Imm Gran Abs Auto 0.04 X10*3/uL (0.00-0.03); Imm Gran Pct Auto 0.3 % (0.0-0.4); Lymphocytes Absolute Auto 1.7 X10*3/uL (1.2-4.9); Mean Corpuscular HGB Conc 31.9 g/dl (31.0-35.0); Mean Corpuscular Hemoglobin 29.1 pg (27.0-33.0); Mean Corpuscular Volume 91.2 fL (80.0-98.0); NRBC Abs Auto 0.000 X10*3/uL (0.0-0.012); NRBC Pct Auto 0.0 /100WBC (0.0-0.2); Platelet Count 251 X10*3/uL (160-400); Red Blood Count 3.99 X10*6/uL (4.20-5.50); White Blood Count 11.5 X10*3/uL (4.8-10.8)
[2024-10-07 12:11] LABS: INTERNATIONAL NORM RATIO 1.0 (0.9-1.1); Prothrombin Time 11.0 SEC (10.9-12.4)
[2024-10-07 12:20] LABS: Alanine Aminotransferase < 6 U/L (0-31); Albumin Level 3.7 g/dL (3.5-5.0); Alkaline Phosphatase 85 U/L (39-117); Anion Gap 16 (12-20); Aspartate Amino Transferase 28 U/L (5-31); Blood Urea Nitrogen 32 mg/dL (9-16); Calcium 9.7 mg/dL (8.4-10.2); Carbon Dioxide 22 mmol/L (22-29); Chloride 109 mmol/L (96-108); Creatinine Clr Calc Pharmacy 26.2; Estimated Glomerular Filt Rate 36; Magnesium 1.9 mg/dL (1.6-2.6); Potassium 4.2 mmol/L (3.3-5.1); Sodium 143 mmol/L (135-145); Total Protein 7.1 g/dL (6.5-8.0)
[2024-10-07 12:25] LABS: Troponin-I High Sensitivity 7.4 ng/L (<3.5-17.0)
[2024-10-07 12:47] LABS: Resp Syncy Virus RNA Qual PCR NEGATIVE (Negative); SARS COV2 PCR INHOUSE NEGATIVE (Negative)
[2024-10-07 13:39] LABS: Appearance Urine Clear; Glucose Urine UA Negative (Negative); PH 5.5 (5.0-9.0); Specific Gravity - Urine 1.020 (1.005-1.025); UMIC TRIGGER UACC YES
[2024-10-07 13:51] LABS: UACC Culture Trigger YES
[2024-10-07 14:00] LABS: Reflex Lactate? Lactic Acid Added
--- NOTE | 2024-10-07 14:43 | PC.NURSE ---
Pt abx hung per APR. Pt received approx 1gm of abx before tubing became disconnected. MD Boo and DAVID Emmanuel made aware. Additional 1gm of Rocephin ordered to cover full dose.
[2024-10-07 14:45] LABS: ~Lactic Acid-LAB USE ONLY 1.0 mmol/L (0.5-2.0)
--- NOTE | 2024-10-07 14:53 | PHA.MEDREC ---
Pharmacy Consult ? Medication Reconciliation Pharmacy has completed the medication reconciliation. Patient with medication list in wallet, no longer takes oxybutynin. Noted she takes everything in the morning
--- NOTE | 2024-10-07 15:06 | P.HPHOSP_ITS ---
History of Present Illness Date of Service: 10/07/24 Attending physician on admission: Julius Key Chief Complaint: syncope At the grocery store with her This is an 83-year-old female who was brought to the emergency department after syncopal event. She was in her usual state of health until she was grocery shopping today. She was in the checkout line when her noticed that she grabbed the side counter, he was able to grab her as she passed out and he laid her down on the ground with the help of a grocery store employee. She was unresponsive for just a few sec and then open her eyes and asked what happened. She does not remember feeling dizzy prior to this episode. No chest pain, no palpitations. In the emergency department her workup was unremarkable with the exception of a urinalysis consistent with UTI and lactic acid of 2.1. Patient denies any dysuria. No fever no chills. Chest x-ray, brain CT were unremarkable. Orthostatic blood pressures were attempted but patient was too dizzy to stand up. She received IV fluid and dose of IV ceftriaxone. She does report she had several episodes of diarrhea 2 days ago bad any since that time. Currently she has no abdominal pain. No recent changes medication. No vomiting and stable po intake. Review of Systems 2 Review of Systems: Yes all other systems are reviewed and are negative Constitutional: Constitutional: Denies chills and Denies fever(s) Cardiovascular: Cardiovascular: Denies chest pain and Denies palpitations Endocrine: Endocrine: Denies palpitations [facility] Medical History Vitamin B12 deficiency (non anemic) Obesity (BMI 30-39.9) Impaired fasting glucose Elevated TSH Acquired hypothyroidism Colonoscopy refused Post-menopausal Transient ischemic attack (TIA) Anxiety GERD without esophagitis Osteopenia Lumbar degenerative disc disease Vitamin D deficiency Pure hypercholesterolemia Benign essential hypertension Family History Father Cancer Mother Cancer Hypertension Chronic mental illness Brother No problems noted. Sister No problems noted. Surgical History History of surgery History of total abdominal hysterectomy and bilateral salpingo-oophorectomy Social History Household Members: Spouse Housing: House Do you presently have visiting nurse or other home services: No Alcohol intake: current Alcohol intake frequency: holidays/special occasions only Alcohol type: wine Patient Tobacco Use Status: Never used Tobacco Smoked in Last 30 Days: No e-Cigarette/Vaping Use: Never Used Second Hand Smoke Exposure: Yes Use of substances other than those prescribed or required for medical reasons: No Currently Displaying Signs/Symptoms of Drug Intoxication Withdrawal: No Have you been hit, kicked, punched, or otherwise hurt by someone within the past year? If so, by whom?: No Do you feel safe in your current relationship?: Yes Is there a partner from a previous relationship who is making you feel unsafe now?: No Are you made to feel afraid or neglected: No Advance Directives: No Advance Directives Information Provided: Yes Do you have a plan to hurt others: No Plan Recently lost weight without trying: Yes How much weight loss: 2-13 pounds Nutrition Risks: No Nutritional Risk and Poor intake 0-25% >4 days Patient : No : No Poor oral hygiene: No service: No Current occupational status: retired Cognitive needs: No Hearing needs: No Vision needs: Yes Meds Allergies Allergy/AdvReac Type Severity Reaction Status Date / Time levofloxacin Allergy Unknown Unknown Verified 10/07/24 10:44 penicillin V Allergy Unknown Unknown Verified 10/07/24 10:44 Sulfa (Sulfonamide Allergy Unknown Unknown Verified 10/07/24 10:44 Antibiotics) Active Medications: Current Medications Acetaminophen (Acetaminophen 325 Mg Tablet) 650 mg PO Q6H PRN PRN Reason: Pain, Mild 1-3,fever,headache Calcium Carbonate (Calcium Carbonate 750 Mg Tab.Chew) 750 mg PO Q4H PRN PRN Reason: Heartburn Ceftriaxone Sodium (Ceftriaxone Sodium 1 Gm Vial) 1 gm IVPUSH Q24H [facility] Heparin Sodium (Porcine) (Heparin Sodium,Porcine 5,000 Unit/Ml Vial) 5,000 unit SUBCUT Q12H [facility] Magnesium Hydroxide (Milk Of Magnesia 30 Ml Oral.Susp) 30 ml PO DAILY PRN PRN Reason: Constipation Melatonin (Melatonin 3 Mg Tablet) 6 mg PO BEDTIME PRN PRN Reason: Insomnia Sodium Chloride (0.9 % Sodium Chloride Flush 3 Ml Syringe) 3 ml IVFLUSH QSHIFT [facility] Home Medications ?Medication ?Instructions ?Recorded ?Confirmed ?Last Taken ?Type levothyroxine 25 mcg tablet 25 mcg PO DAILY@0600 10/0710/07/24 10/07/24 History multivitamin 1 tab PO DAILY 10/07/2409/1610/07/24 History simvastatin 20 mg tablet 20 mg PO DAILY 10/07/2409/1610/07/24 History Physical Exam 2 Vital Signs and Narrative: Vital Signs: Last Vital Signs Temp 95.9 F L 10/07/24 14:16 Pulse 54 10/07/24 14:16 Resp 15 10/07/24 14:16 BP 133/72 10/07/24 14:16 Pulse Ox 97 10/07/24 14:16 O2 Del Method Room Air 10/07/24 14:16 BMI result Body Mass Index 30.5 Const: General: cooperative, comfortable, no acute distress, alert and awake Nutritional Appearance: average body habitus Orientation/consciousness: p atient oriented x3 Resp: Effort & Inspection: normal respiratory effort, able to speak in complete sentences, no respiratory distress and no use of accessory muscles Cardio: Rate: regular rate GI: Inspection: No distended Palpation (GI): Soft to palpation and nontender Neuro: General: patient oriented x3, moves all extremities and CN's II-XI intact bilaterally Results Labs 10/07/24 11:54 10/08/24 06:45 Labs: Laboratory Results - last 24 hr 10/07/24 10/07/24 10/07/24 11:30 11:54 13:33 MCV 91.2 MCH 29.1 MCHC 31.9 RDW 14.4 Plt Count 251 MPV 11.4 Immature Gran % (Auto) 0.3 Neut % (Auto) 76.4 H Lymph % (Auto) 14.8 L [place] % (Auto) 6.9 Eos % (Auto) 1.0 Baso % (Auto) 0.6 Lymph # (Auto) 1.7 [place] # (Auto) 0.8 Eos # (Auto) 0.1 Baso # (Auto) 0.1 Abs Immat Gran (auto) 0.04 H Absolute Neuts (auto) 8.8 H Absolute Nucleated RBC 0.000 Nucleated RBC % (auto) 0.0 PT 11.0 INR 1.0 Anion Gap 16 Estim Creat Clear Calc 26.2 Estimated GFR 36 POC Glucose 167 H Random Glucose 165 H Lactic Acid 2.1 H* Lactic Acid F/U @ 2Hr Calcium 9.7 Magnesium 1.9 Total Bilirubin 0.4 Direct Bilirubin 0.1 AST 28 ALT < 6 Alkaline Phosphatase 85 C-Reactive Protein 0.32 Total Protein 7.1 Albumin 3.7 Urine Color Yellow Urine Appearance Clear Urine pH 5.5 Ur Specific [place] 1.020 Urine Protein Trace Urine Glucose (UA) Negative Urine Ketones Negative Urine Blood Negative Urine Nitrite Positive H Ur Leukocyte Esterase Moderate (2+) H Urine RBC 3-5 H Urine WBC 21-50 H Ur Squamous Epith Cells 0-2 Urine Bacteria 3+ Hyaline Casts 11-20 Influenza Type A (PCR) NEGATIVE Influenza Type B (PCR) NEGATIVE RSV RNA Qual (PCR) NEGATIVE SARS-CoV-2 RNA (RT-PCR) NEGATIVE 10/07/24 14:26 MCV MCH MCHC RDW Plt Count MPV Immature Gran % (Auto) Neut % (Auto) Lymph % (Auto) [place] % (Auto) Eos % (Auto) Baso % (Auto) Lymph # (Auto) [place] # (Auto) Eos # (Auto) Baso # (Auto) Abs Immat Gran (auto) Absolute Neuts (auto) Absolute Nucleated RBC Nucleated RBC % (auto) PT INR Anion Gap Estim Creat Clear Calc Estimated GFR POC Glucose Random Glucose Lactic Acid Lactic Acid F/U @ 2Hr 1.0 Calcium Magnesium Total Bilirubin Direct Bilirubin AST ALT Alkaline Phosphatase C-Reactive Protein Total Protein Albumin Urine Color Urine Appearance Urine pH Ur Specific [place] Urine Protein Urine Glucose (UA) Urine Ketones Urine Blood Urine Nitrite Ur Leukocyte Esterase Urine RBC Urine WBC Ur Squamous Epith Cells Urine Bacteria Hyaline Casts Influenza Type A (PCR) Influenza Type B (PCR) RSV RNA Qual (PCR) SARS-CoV-2 RNA (RT-PCR) Assessment and Plan (1) UTI (urinary tract infection): Status: Acute Plan This is an 83-year-old female with history of hypertension, hyperlipidemia who presents to the emergency department after syncopal event found to have UTI Syncope Orthostatic versus vasovagal EKG right bundle-branch block, unchanged Initial troponin 7.4, repeat ordered Unable to complete orthostatic vital signs due to dizziness will give 1L LR tele monitor to rule out arrhythmia Blood pressure medication Re-attempt orthostatic blood pressures in a.m. UTI No sepsis IV ceftriaxone Follow urine cultures Acute lactic acidosis Possibly due to dehydration, no evidence of sepsis Hypertension BP low in ED Dizzy upon standing, hold blood pressure medication Bradycardia Heart rate in the 50s Hold diltiazem Monitor on telemetry Hypothyroidism Continue Synthroid DVT prophylaxis-heparin Code status-full code Patient will likely require 2 midnight stay in the hospital for management of UTI and syncopal episode likely due to orthostasis possibly from recent bout of diarrhea Quality Stroke Does the patient have a stroke diagnosis?: No VTE Prior VTE?: No VTE Risk Level:: Medical - moderate - high VTE Device Contraindication: Treatment Not Indicated VTE Drug Contraindication: N/A - Med Ordered
[2024-10-07] MEDS: Lactated Ringers 1,000 ML 80 ML IVCONT (15:40)
[2024-10-07 16:18] LABS: Troponin-I High Sensitivity 9.5 ng/L (<3.5-17.0)
[2024-10-08] VITALS (7 sets, daily range): BP systolic 137–158; BP diastolic 62–80; PULSE 60–66; RESP 16–20; TEMP 36.4–37.1; O2SAT 93–96
[2024-10-08 07:40] LABS: Anion Gap 12 (12-20); Blood Urea Nitrogen 29 mg/dL (9-16); Calcium 9.1 mg/dL (8.4-10.2); Carbon Dioxide 24 mmol/L (22-29); Chloride 112 mmol/L (96-108); Creatinine Clr Calc Pharmacy 29.7; Estimated Glomerular Filt Rate 42; Potassium 4.1 mmol/L (3.3-5.1); Sodium 144 mmol/L (135-145)
[2024-10-08] MEDS: 0.9 % Sodium Chloride Flush 3 ML SYRINGE IVFLUSH ×3 (08:37→22:13)
[2024-10-08] MEDS: Aspirin Enteric Coated 81 MG TABLET.DR PO (08:37)
--- NOTE | 2024-10-08 08:57 | MHC.CM.PN ---
CM met with Patient at bedside and addressed IMM with her, providing Patient with the original and a copy has been placed on the chart. Patient lives in a house with her , who will transport to home at dc. Patient required no services nor DME LAB SPECIALIST and she declined the offer for a VNA referral.Home/self care is the goal and CM has initiated and will follow for dc planning. Patient declined a HCP and her PCP is Dr. Duong Ramirez.
--- NOTE | 2024-10-08 14:15 | P.PNIM_ITS ---
Subjective Subjective Date of Service: 10/08/24 Interval History: Improved overnight. Much clear this morning. No acute issues Review of Systems Denies chest pain Denies shortness of breath Denies nausea vomiting diarrhea Denies fever chills Physical Exam 2 Vital Signs: Vital Signs: Last Vital Signs Temp 98.6 F 10/08/24 11:37 Pulse 63 10/08/24 11:37 Resp 16 10/08/24 11:37 BP 139/67 10/08/24 11:37 Pulse Ox 96 10/08/24 11:37 O2 Del Method Room Air 10/08/24 11:37 BMI result Body Mass Index 30.5 Const: Other: Awake alert oriented x3 in no acute distress Resp: Other: Clear to auscultation bilaterally no rales rhonchi or wheezes Cardio: Other: No S4; positive S1-S2; no S3 murmurs rubs or gallops GI: Other: Soft nontender nondistended normoactive bowel sounds Extrem: Other: No edema bilaterally Objective Data Active Medications Acetaminophen (Acetaminophen 325 Mg Tablet) 650 mg PO Q6H PRN PRN Reason: Pain, Mild 1-3,fever,headache Aspirin (Aspirin Enteric Coated 81 Mg Tablet.) 81 mg PO DAILY [facility] Last Admin: 10/08/24 08:37 Dose: 81 mg Documented By: MARÍA ELENA Atorvastatin Calcium (Atorvastatin Calcium 10 Mg Tablet) 10 mg PO DAILY [facility] Last Admin: 10/08/24 08:37 Dose: 10 mg Documented By: MARÍA ELENA Calcium Carbonate (Calcium Carbonate 750 Mg Tab.Chew) 750 mg PO Q4H PRN PRN Reason: Heartburn Ceftriaxone Sodium (Ceftriaxone Sodium 1 Gm Vial) 1 gm IVPUSH Q24H [facility] Clonazepam (Clonazepam 0.5 Mg Tablet) 0.5 mg PO DAILY PRN PRN Reason: Anxiety Cyanocobalamin (Cyanocobalamin (Vitamin B-12) 1,000 Mcg Tablet) 1,000 mcg PO DAILY [facility] Last Admin: 10/08/24 08:36 Dose: 1,000 mcg Documented By: MARÍA ELENA Heparin Sodium (Porcine) (Heparin Sodium,Porcine 5,000 Unit/Ml Vial) 5,000 unit SUBCUT Q12H [facility] Last Admin: 10/08/24 03:41 Dose: 5,000 unit Documented By: FOGARTB Levothyroxine Sodium (Levothyroxine Sodium 25 Mcg Tablet) 25 mcg PO DAILY@0600 [facility] Last Admin: 10/08/24 06:23 Dose: 25 mcg Documented By: FOGARTB Losartan Potassium (Losartan Potassium 50 Mg Tablet) 50 mg PO DAILY [facility]; Protocol Last Admin: 10/08/24 08:36 Dose: 50 mg Documented By: MARÍA ELENA Magnesium Hydroxide (Milk Of Magnesia 30 Ml Oral.Susp) 30 ml PO DAILY PRN PRN Reason: Constipation Melatonin (Melatonin 3 Mg Tablet) 6 mg PO BEDTIME PRN PRN Reason: Insomnia Multivitamins/Vitamin C (Multivitamin Tablet) 1 tab PO DAILY [facility] Last Admin: 10/08/24 08:36 Dose: 1 tab Documented By: SUYAPAING Sodium Chloride (0.9 % Sodium Chloride Flush 3 Ml Syringe) 3 ml IVFLUSH QSHIFT [facility] Last Admin: 10/08/24 08:37 Dose: 3 ml Documented By: MARÍA ELENA Vitamin D (Cholecalciferol (Vitamin D3) 25 Mcg Tablet) 50 mcg PO DAILY [facility] Last Admin: 10/08/24 08:36 Dose: 50 mcg Documented By: MARÍA ELENA Labs 10/07/24 11:54 10/08/24 06:45 Labs: Laboratory Results - last 24 hr 10/07/24 10/07/24 10/08/24 14:26 15:39 06:45 Hold Purple Top SEE NOTE SEE NOTE Anion Gap 12 Estim Creat Clear Calc 29.7 Estimated GFR 42 Random Glucose 82 Lactic Acid F/U @ 2Hr 1.0 Calcium 9.1 D Microbiology Microbiology Results: Microbiology 10/07/24 11:54 Blood Culture - Preliminary Blood - Venous No growth after 24 hours. 10/07/24 11:54 Blood Culture - Preliminary Blood - Venous No growth after 24 hours. 10/07/24 Unknown Urine Culture - Preliminary Urine clean catch - Clean Catch Midstream Gram negative blaine Assessment and Plan (1) UTI (urinary tract infection): Status: Acute Plan This is an 83-year-old female with history of hypertension, hyperlipidemia who presents to the emergency department after syncopal event found to have UTI 1.Syncope -likely multifactorial in backdrop of UTI -likely vagal component as well -pressure stable; no further issues 2.UTI (preliminary Gram-negative rods) -ceftriaxone (2) -await urine cultures 3.Hypertension (was hypotensive on arrival) -acceptable control off therapies -add back outpatient therapies when clinically appropriate 4.Bradycardia -normal sinus rhythm since Cardizem held -can resume as outpatient as designated by CP full code Heparin Quality Stroke Does the patient have a stroke diagnosis?: No VTE Prior VTE?: No VTE Risk Level:: Medical - moderate - high VTE Device Contraindication: Treatment Not Indicated VTE Drug Contraindication: N/A - Med Ordered
[2024-10-09 03:48] VITALS: BP 141/60; PULSE 65; RESP 20; TEMP 36.5; O2SAT 93
[2024-10-09 06:54] LABS: MANUAL DIFF FLAG NO
[2024-10-09 07:01] LABS: Hematocrit 33.8 % (37.0-47.0); Hemoglobin 11.1 g/dl (12.0-16.0); Imm Gran Abs Auto 0.02 X10*3/uL (0.00-0.03); Imm Gran Pct Auto 0.2 % (0.0-0.4); Lymphocytes Absolute Auto 3.7 X10*3/uL (1.2-4.9); Mean Corpuscular HGB Conc 32.8 g/dl (31.0-35.0); Mean Corpuscular Hemoglobin 29.5 pg (27.0-33.0); Mean Corpuscular Volume 89.9 fL (80.0-98.0); NRBC Abs Auto 0.000 X10*3/uL (0.0-0.012); NRBC Pct Auto 0.0 /100WBC (0.0-0.2); Platelet Count 235 X10*3/uL (160-400); Red Blood Count 3.76 X10*6/uL (4.20-5.50); White Blood Count 10.4 X10*3/uL (4.8-10.8)
[2024-10-09 07:24] LABS: Alanine Aminotransferase < 6 U/L (0-31); Albumin Level 3.1 g/dL (3.5-5.0); Alkaline Phosphatase 72 U/L (39-117); Anion Gap 13 (12-20); Aspartate Amino Transferase 25 U/L (5-31); Blood Urea Nitrogen 28 mg/dL (9-16); Calcium 9.0 mg/dL (8.4-10.2); Carbon Dioxide 24 mmol/L (22-29); Chloride 110 mmol/L (96-108); Creatinine Clr Calc Pharmacy 28.9; Estimated Glomerular Filt Rate 41; Potassium 4.1 mmol/L (3.3-5.1); Sodium 143 mmol/L (135-145); Total Protein 6.0 g/dL (6.5-8.0)
[2024-10-09 08:00] VITALS: BP 154/69; PULSE 69; RESP 18; TEMP 36.1; O2SAT 96
[2024-10-09] MEDS: 0.9 % Sodium Chloride Flush 3 ML SYRINGE IVFLUSH ×2 (09:36→15:49)
[2024-10-09] MEDS: Aspirin Enteric Coated 81 MG TABLET.DR PO (09:36)
[2024-10-09 09:37] VITALS: BP 154/69
[2024-10-09 11:13] VITALS: BP 148/67; PULSE 60; RESP 16; TEMP 36.7; O2SAT 97
[2024-10-09 13:19] VITALS: BP 148/67; PULSE 60; O2SAT 97
[2024-10-09 15:57] VITALS: BP 150/68; PULSE 64; RESP 16; TEMP 36.7; O2SAT 95
--- NOTE | 2024-10-09 17:18 | PM.DS ---
DS: Providers Provider Date of Service: 10/09/24 Date of admission: 10/07/24 14:16 Date of discharge: 10/09/24 Primary care physician: Duong Ramirez MD DS: Diagnosis Discharge Diagnosis (1) UTI (urinary tract infection): Status: Acute DS: Summary Hospital Course Hospital Course: From admission HPI: Date of Service: 10/07/24 Attending physician on admission: Julius Key Chief Complaint: syncope At the grocery store with her This is an 83-year-old female who was brought to the emergency department after syncopal event. She was in her usual state of health until she was grocery shopping today. She was in the checkout line when her noticed that she grabbed the side counter, he was able to grab her as she passed out and he laid her down on the ground with the help of a grocery store employee. She was unresponsive for just a few sec and then open her eyes and asked what happened. She does not remember feeling dizzy prior to this episode. No chest pain, no palpitations. In the emergency department her workup was unremarkable with the exception of a urinalysis consistent with UTI and lactic acid of 2.1. Patient denies any dysuria. No fever no chills. Chest x-ray, brain CT were unremarkable. Orthostatic blood pressures were attempted but patient was too dizzy to stand up. She received IV fluid and dose of IV ceftriaxone. She does report she had several episodes of diarrhea 2 days ago bad any since that time. Currently she has no abdominal pain. No recent changes medication. No vomiting and stable po intake. Hospital course Pt was admitted to the hospital for syncopal episode in the community likely in the setting of acute UTI without sepsis or bacteremia. Orthostatics negative. Blood cultures negative after 48 hours. UA positive for E coli sensitive for ceftriaxone. Pt was initially hypotensive upon arrival, though subsequently noted to be normotensive or hypertensive. Pt also was noted to be in sinus bradycardia for much of the stay, often in the 40s to 50s. Diltiazem has been on hold and will continue to be on hold until pt sees her PCP to consider resuming it. Pt will be discharged on cefuroxime 250 mg b.i.d. x5 days. For acute acidosis of 2.1, likely due to dehydration, not sepsis. For hypothyroidism continue levothyroxine For HTN Continue losartan and hydrochlorothiazide; hold diltiazem due to bradycardia HLD Continue statin Time Attestation Discharge Coordination Time (in mins): 40 Quality: Safe Use of Opioids Does Pt have an Active Cancer Diagnosis on the Problem List?: No Quality: Stroke Does the patient have a stroke diagnosis?: No Physical Exam Exam: Exam: General: AOx3, no acute distress Resp: CTA bilaterally CVS: S1, S2, RRR GI: +BS, NT, no distention Skin: Warm, dry Neuro: Cranial nerves II-XII grossly intact bilaterally. Motor grossly intact bilaterally Extremities: No edema Psych: Appropriate affect Vital Signs: Vital Signs: Last Vital Signs Temp 98.1 F 10/09/24 15:57 Pulse 64 10/09/24 15:57 Resp 16 10/09/24 15:57 BP 150/68 H 10/09/24 15:57 Pulse Ox 95 10/09/24 15:57 O2 Del Method Room Air 10/09/24 15:57 BMI result Body Mass Index 30.5 DS: Data Data Completed and Pending Labs on day of discharge: Laboratory Results - last 24 hr 10/09/24 06:50 WBC 10.4 RBC 3.76 L Hgb 11.1 L Hct 33.8 L MCV 89.9 MCH 29.5 MCHC 32.8 RDW 14.5 Plt Count 235 MPV 11.3 Immature Gran % (Auto) 0.2 Neut % (Auto) 47.0 Lymph % (Auto) 35.5 [place] % (Auto) 11.7 H Eos % (Auto) 4.8 H Baso % (Auto) 0.8 Lymph # (Auto) 3.7 [place] # (Auto) 1.2 Eos # (Auto) 0.5 H Baso # (Auto) 0.1 Abs Immat Gran (auto) 0.02 Absolute Neuts (auto) 4.9 Absolute Nucleated RBC 0.000 Nucleated RBC % (auto) 0.0 Sodium 143 Potassium 4.1 Chloride 110 H Carbon Dioxide 24 Anion Gap 13 BUN 28 H Creatinine 1.26 Estim Creat Clear Calc 28.9 Estimated GFR 41 Fasting Glucose 83 Calcium 9.0 Total Bilirubin 0.2 AST 25 ALT < 6 Alkaline Phosphatase 72 Total Protein 6.0 L Albumin 3.1 L Preliminary micro results at discharge 10/07/24 11:54 Blood Culture - Preliminary Blood - Venous No growth after 48 hours. 10/07/24 11:54 Blood Culture - Preliminary Blood - Venous No growth after 48 hours. Discharge Plan Discharge Anticipated Discharge Date/Time: 10/09/24 16:38 Patient Disposition: Home Health Service Discharge Diagnosis: Syncope Referrals: [facility] [Outside] - 3-5 Days Referral Note: HOME PHYSICAL THERAPY Duong Ramirez MD [Primary Care Provider, Internal Medicine] - 1 Week Discharge Medications: New cefuroxime axetil 250 mg tablet 250 mg PO BID Qty: 11 0RF Rx Instructions: Take one tablet twice a day with food for the next 5 days, starting on the evening of 10/09 and ending on the evening of 10/14 Continued hydrochlorothiazide 12.5 mg capsule 12.5 mg PO DAILY Qty: 90 1RF losartan 50 mg tablet 50 mg PO DAILY 90 Days Qty: 90 1RF cholecalciferol (vitamin D3) 50 mcg (2,000 unit) capsule 50 mcg PO DAILY 90 Days Qty: 90 3RF clonazepam 0.5 mg tablet 0.5 mg PO DAILY PRN (Reason: anxiety) 30 Days Qty: 30 0RF estradiol 1 mg tablet 1 mg PO DAILY 30 Days Qty: 90 1RF Rx Instructions: off 1 week; repeat cycle aspirin 81 mg tablet,delayed release (DR/EC) 81 mg PO DAILY Qty: 90 0RF levothyroxine 25 mcg tablet 25 mcg PO DAILY@0600 Rx Instructions: Take on an empty stomach, first thing in the morning, with water. Do not eat or drink anything else for 30 minutes afterwards simvastatin 20 mg tablet 20 mg PO DAILY multivitamin Tablet 1 tab PO DAILY cyanocobalamin (vitamin B-12) 1,000 mcg tablet 1,000 mcg PO DAILY 90 Days Qty: 90 3RF Held diltiazem HCl [Cartia XT] 240 mg capsule,extended release 24hr 240 mg PO QAM 90 Days Qty: 90 1RF Hold Instructions: Resume on 10/23/24. Hold until you see your PCP about resuming medication Discharge Orders: Discharge Order (Routine); Ordered 10/09/24 Ordered By: Henry Stern Activity on Discharge: As tolerated Stand Alone Forms: Patient Portal Discharge page Print Language: Nepali Care Plan Goals: See below Health Concerns: Syncope UTI Bradycardia Generalized weakness Plan of Treatment: You were admitted to the hospital for syncopal episode in the community where workup found you had acute UTI. You were initially hypotensive upon arrival and found also to be bradycardic in the 40s and 50s. Your monitored on telemetry where you are noted to be in sinus bradycardia without any concerning arrhythmias. You are also treated with IV antibiotics which will be transitioned to oral medications on discharge. -- for UTI take cefuroxime 250 mg twice a day with food for the next 5 days, starting on the evening of 10/09 and ending the evening of 10/14 -- for bradycardia, your diltiazem has been held. Continue holding diltiazem for now until you follow up with your PCP to consider whether to resume that -- follow up with your PCP in 1 week for routine post hospitalization follow up -- resume all of your other home medications Assessment: See discharge summary Discharge Date/Time: 10/09/24 18:03
--- NOTE | 2024-10-10 10:16 | MHC.CM.PN ---
LATE ENTRY NOTE FOR 10/09/24, PT DISCHARGING HOME W/DORA G[facility] FOR HOME PT, PT'S AT BEDSIDE AND WILL TRANSPORT
--- NOTE | 2024-10-10 10:18 | W.MHC.F2F ---
Service Date Service Date: 10/10/24 Encounter Date of encounter: 10/09/24 Reasons for Services Signs and symptoms assessed: Generalized weakness, syncopal episode. Reason for detention: medication management Reason for physical therapy: home safety and mobility Homebound: Leaving the home is medically contraindicated at this time without the asist of a device and/or another person due th the listed conditions above and below. Reason homebound: unsteady gait / fall risk, leg weakness and poor balance / fall risk Certification: Based on the above findings, I certify that this patient is confined to the home and needs intermittent detention care, physical therapy and/or speech therapy, or continues to need occupational therapy. The patient is under my care, and I have initiated the establishment of the plan of care. The patient will be followed by a physician who will periodically review the plan of care. Time Spent With Patient Time: Total time managing care of this patient today ____ minutes.
== END 2024-10-09 18:03 | disposition home health service (06) | DRG 690 ==
LOC: HO.ED 12:07 → HO.EDOVER 14:18 → HO.IMC 14:53
PROVIDERS: Hospitalist; Nurse Practitioner Family; Admitting Provider Physician Assistant Medical; Emergency Provider Emergency Medicine; PCP Internal Medicine; Visit Provider Student in an Organized Health Care Education/Training Program
DX: N39.0 Urinary tract infection, site not specified (principal); E87.21 Acute metabolic acidosis; E03.9 Hypothyroidism, unspecified; R00.1 Bradycardia, unspecified; E86.0 Dehydration; B96.20 Unspecified Escherichia coli [E. coli] as the cause of diseases classified elsewhere; Z20.822 Contact with and (suspected) exposure to COVID-19; Z79.82 Long term (current) use of aspirin; Z79.890 Hormone replacement therapy; Z79.899 Other long term (current) drug therapy
CPT/HCPCS: 36415; 70450; 71045; 80048; 80053; 80076; 81001; 82947; 83605; 83735; 84484; 85025; 85610; 86140; 87040; 87086; 87088; 87186; 87637; 93005; 97161; 99222; 99285; J0696; J1644; J2405; J7120

== ENCOUNTER → 2024-10-07 11:03 | Outpatient (BNV) | payer MEDICARE, SELFPAY | PROVIDERS: Admitting Provider Physician Assistant Medical; Emergency Provider Emergency Medicine; PCP Internal Medicine; Visit Provider Internal Medicine | DX: I45.10 Unspecified right bundle-branch block (principal) | CPT/HCPCS: 93010 ==

== ENCOUNTER → 2024-10-07 11:04 | Outpatient (BNV) | payer MEDICARE, SELFPAY | PROVIDERS: Emergency Provider Emergency Medicine; Visit Provider Radiology Diagnostic Radiology | DX: R55 Syncope and collapse (principal); R53.1 Weakness | CPT/HCPCS: 70450; 71045 ==

== ENCOUNTER → 2024-10-07 14:16 | Outpatient (BNV) | payer MEDICARE, SELFPAY | PROVIDERS: Admitting Provider Physician Assistant Medical; Emergency Provider Emergency Medicine; PCP Internal Medicine; Visit Provider Hospitalist | DX: N39.0 Urinary tract infection, site not specified (principal); R55 Syncope and collapse | CPT/HCPCS: 99222; 99232 ==

== ENCOUNTER 2024-10-20 16:13 | Outpatient (AMB) | payer MEDICARE, SELFPAY ==
--- OUTSIDE RECORDS SUMMARY | 2024-10-19 13:00 | XMS_ITS | Encounter Summary ---
Author Organization Formerly [facility] Address [address] [facility] [address] [place] [address] Phone Care Team Providers Care Risk Modeler Name Role Phone Duong Ramirez MD Primary Care Provider [phone] Reason for Visit * Auth/Cert (Routine) Specialty Diagnoses / Procedures Referred By Cele t Referred To Contact Referral ID Status Reason Start Date Expiration Date Visits Re quested Visits Authorized [id number] 1 1 Encounter Details Date Type Department Care Team ([facility] st Contact Info) Description 10/19/2024 1:00 PM EDT Home Care Visit [facility] [address] [place], [place] [phone] Maddie Antonio RN [address] [place] [address] SN OASIS START OF CARE (SOC) Social History Tobacco Use Types Packs/Day Years Used Date Smoking Tobacco: Never Assessed Home Health Assessment: Transportation Answer Date Recorded Lack of Transportation (Medical) No 10/19/2024 Lack of Transportation (Non-Medical) No 10/19/2024 Patient Unable or Declines to Respond No 10/19/2024 Education Answer Date Recorded Are you interested in more education? Not on kristian e 10/10/2024 Are you concerned about learning? Not on file 10/10/2024 No 10/10/2024 No 10/10/2024 Digital Access Answer Date Recorded No 10/10/2024 No 10/10/2024 Reliable internet access at home? Not on file 10/10/2024 Device with a working camera? Not on file Comments Unknown Sex and Gender Information Value Date Recorded Sex Assigned at Not on file Legal Sex Female 9:53 AM EDT Gender Identity Not on file Sexual Orientation Not on file documented as of this encounter Last Filed Vital Signs Vital Sign Reading Time Taken Comments Blood Pressure 110/60 10/19/2024 1:00 PM EDT Pulse 80 10/19/2024 1:00 PM EDT Temperature 36.3 C (97.4 F) 10/19/2024 1:00 PM EDT Respiratory Rate 18 10/19/2024 1:00 PM EDT Oxygen Saturation 98% 10/19/2024 1:00 PM EDT Inhaled Oxygen Concentration - - Weight - - Height - - Body Mass Index - - documented in this encounter Plan of Treatment Upcoming Encounters Date Type Department Care Team (Late st Contact Info) Description 10/24/2024 2:00 AM EDT Home Care Visit [facility] [address] [place] [phone] Xiomara Magallon RN [address] [place] [address] 10/26/2024 12:30 AM EDT Home Care Visit [facility] [address] [place] [phone] Xiomara Magallon RN [address] [place] [address] 10/31/2024 2:30 AM EDT Home Care Visit [facility] [address] [place] [phone] Xiomara Magallon RN [address] [place] [address] 11/02/2024 12:30 AM EDT Home Care Visit [facility] [address] [place] [phone] Xiomara Magallon RN [address] [place] [address] 11/07/2024 1:00 AM EDT Home Care Visit [facility] [address] [place] [phone] Xiomara Magallon RN [address] [place] [address] 11/09/2024 Home Care Visit [facility] [address] [place] [phone] Xiomara Magallon RN [address] [place] [address] 11/15/2024 2:30 AM EDT Home Care Visit [facility] [address] [place] [phone] Xiomara Magallon RN [address] [place] [address] 11/22/2024 2:30 AM EDT Home Care Visit [facility] [address] [place] [phone] Xiomara Magallon RN [address] [place] [address] 11/29/2024 Home Care Visit [facility] [address] [place] [phone] Xiomara Magallon RN [address] [place] [address] 12/06/2024 1:00 AM EDT Home Care Visit [facility] [address] [place] [phone] Xiomara Magallon RN [address] [place] [address] 12/13/2024 Home Care Visit [facility] [address] [place] [phone] Xiomara Magallon RN [address] [place] [address] documented as of this encounter Visit Diagnoses Not on filedocumented in this encounter Home Health Visit - Care Plan Visit Details Visit Type -SN OASIS START O F CARE (SOC) Discipline -[facility] Problems Problem Description Start Date Status Goals Interve ntions HH - Standard of Care Disciplines: All Active Home Health Disciplines 10/19/2024 Active 1 goal linked to scheduled/document ed intervention 2 goal interventions scheduled/document ed in this visit HH - Medication Management Disciplines: All Active Home Health Disciplines 10/19/2024 Active 1 goal linked to scheduled/document ed intervention 2 goal interventions scheduled/document ed in this visit HH - Focus of Care and Teaching Disciplines: All Active Home Health Disciplines w/RD 10/19/2024 Active 1 goal linked to scheduled/document ed intervention 1 goal intervention scheduled/document ed in this visit Goals Goal Associated Problem Outcome Goal Met? Visit Notes HH - Achieve care management for a safe to home/community discharge from homecare HH - Standard of Care No HH - Safe medication management, avoid unnecessary harm related to medication errors and/or interactions HH - Medication Management No HH - Communication and collaboration to achieve patient goals HH - Focus of Care and Teaching No Interventions Intervention Associated Problem/Goal Status Variance Visit Notes HH - Assess vital signs, pulse oximetry, pain, and as indicated, orthostatic vital signs Description: use agency-specific parameters Problem:HH - Standard of Care Goal:HH - Achieve care management for a safe to home/community discharge from homecare Completed HH - Assess skin integrity Problem: - Standard of Care Goal:HH - Achieve care management for a safe to home/community discharge from homecare Completed - I/E medication management: administration, purpose, dosages, preparation, setup, scheduling, side effects, food/drug interactions, and potential complications as indicated Description: Update patient's copy of medication list as needed. Problem:HH - Medication Management Goal:HH - Safe medication management, avoid unnecessary harm related to medication errors and/or interactions Completed - Complete medication review every visit and medication reconciliation as indicated. [facility] information: [facility] [place] Problem: - Medication Management Goal:HH - Safe medication management, avoid unnecessary harm related to medication errors and/or interactions Completed - Focus of care, teaching completed and plan for next visit Problem:HH - Focus of Care and Teaching Goal:HH - Communication and collaboration to achieve patient goals Completed Primary Clinical Focus this Visit & Instruction Provided: Patient referred to homecare services after brief hospitalization to [facility]. Patient is an 83 year old female who lives with a spouse in a single family home with dimly lit set of stairs leading into the main home. Patient is alert and oriented, patient described that she went to the groccery store with her and suddenly felt her legs get weak and she was lowered to the ground, no head strike reported or withnessed. Patient was tested and treated for UTI, she just completed a full course of cefuroxime 250mg twice a day for 5 days. Medications reconciled with no discrepancies. patient to follow up with PCP in a week. Patient currently ambultes with a walker has spouse available most times during the day and night to help with ADL and iADL.vital signs today duing visit were stable. Patient will be followed by [facility] team for disease and symptom management. , all protocols observed during visit. Instruction Provided to: patient and caregiver Response to Instruction/Teaching: Is partially able to teach back topics as evidenced by verbalization understanding. Plan for Next Visit Specific Focus & Education Needed: Patient will require head to toe reassessment, vital signs recheck, fall prevention, UTI ss reteach and symptom mangement. New Orders: None Updated Discharge Plan: Patient will be discharged from homecare services once goals are met. documented in this encounter Care Teams Risk Modeler Relationship Specialty Start Date End Date Duong Ramirez MD [address] [place] [address] Dr Crenshaw [address] [place] [address] PCP - General 10/10/24 documented as of this encounter Additional Source Comments The information contained in this document represents components of the legal health record. It is not the complete legal health record.[facility]
--- NOTE | 2024-10-20 16:14 | MHC.PC.OV ---
Vital Signs 10/20/24 16:16 Height 4 ft 11 in Weight 148 lb 4 oz BMI 29.9 BP 122/62 Blood Pressure Location Lt brachial Position Sitting Pulse 85 Pulse Source Pulse Oximeter Temp 97.3 F Temp Source Temporal Artery Scan Pulse Oximetry (%) 97 Oxygen Delivery Method Room Air Intake Visit Reasons: TCM [facility] [place]09 UTI Intake Note: Patient is here for hospital discharge and TCM follow up. Patient was discharged from [facility] on 10/09/24. Pharmacy Tech Customer Service Required: No Assistant Printer Floor Covering: Present Accompanied by: Spouse Allergies levofloxacin Allergy (Unknown, Verified 10/20/24 16:15) Unknown penicillin V Allergy (Unknown, Verified 10/20/24 16:15) Unknown Sulfa (Sulfonamide Antibiotics) Allergy (Unknown, Verified 10/20/24 16:15) Unknown Tobacco use date assessed: 10/20/24 Fall risk assessment: 1 Fall in past year Last assessed Fall Risk: 10/20/24 Dental Screening Dental Screen Date: 07/03/24 [facility] TCM TCM Information Date of Discharge 10/09/24 Discharged From [facility] Interactive Contact Date (Reference documentation from this date) 10/10/24 HPI Comments History of Present Illness Details 83 y/o Female patient who presents to the clinic today for HDF. Pt was admitted at [facility] on 10/07 - 10/09 for an evaluation and treatment of syncopal episode in the community likely in the setting of acute UTI without sepsis or bacteremia. Pt was hypotensive in the hospital and subsequently noted to be normotensive. Her Diltiazem has been on hold since Hospital discharge. Her B/P today is 122/62 Stable. [facility] Medical History Vitamin B12 deficiency (non anemic) Obesity (BMI 30-39.9) Impaired fasting glucose Elevated TSH Acquired hypothyroidism Colonoscopy refused Post-menopausal Transient ischemic attack (TIA) Anxiety GERD without esophagitis Osteopenia Lumbar degenerative disc disease Vitamin D deficiency Pure hypercholesterolemia Benign essential hypertension Surgical History History of surgery History of total abdominal hysterectomy and bilateral salpingo-oophorectomy Family History Father Cancer Mother Cancer Hypertension Chronic mental illness Brother No problems noted. Sister No problems noted. Social History Household Members: Spouse Housing: House Do you presently have visiting nurse or other home services: No Alcohol intake: current Alcohol intake frequency: holidays/special occasions only Alcohol type: wine Patient Tobacco Use Status: Never used Tobacco e-Cigarette/Vaping Use: Never Used Second Hand Smoke Exposure: Yes service: No Current occupational status: retired Cognitive needs: No Hearing needs: No Vision needs: Yes Questionnaire Thrive Questionnaire Date Thrive assessed: 10/08/24 PAVEL-7 AMB Questionnaire PAVEL-7 Date PAVEL - 7 assessed: 07/03/24 Source: Developed by Drs. Daniel Arango, Geeta Gallagher, Milton Adams and colleagues, with an educational rocio from [employer]. Review of Systems Const All systems reviewed & are unremarkable except as noted in HPI and below Physical exam (Primary Care) Vital Signs: Last Vital Signs Temp 97.3 F 10/20/24 16:16 Pulse 85 10/20/24 16:16 BP 122/62 10/20/24 16:16 Pulse Ox 97 10/20/24 16:16 Oxygen Delivery Method Room Air 10/20/24 16:16 BMI result Body Mass Index 29.9 Tobacco/Smoking Status: Tobacco use Status Tobacco use date assessed 10/20/24 10/20/24 16:21 Patient Tobacco Use Status Never used Tobacco 10/20/24 16:14 e-Cigarette/Vaping Use Never Used 10/20/24 16:14 Thrive Assessment: Date of Thrive Assessment Date Thrive assessed 10/08/24 10/20/24 16:14 Const General: no acute distress Nutritional Appearance: overweight Orientation/consciousness: patient oriented x3 Resp Effort & Inspection: normal respiratory effort Auscultation: clear to auscultation bilaterally Cardio Heart sounds: S1 normal heart sound present and S2 normal heart sound present Neuro General: patient oriented x3 and moves all extremities Coding Level of Care Code TCM Mod MDM <= 14 Days Diagnoses UTI (urinary tract infection) N39.0 Benign essential hypertension I10 Time Spent (min) 20 Assessment & Plan Assessment & Plan (1) UTI (urinary tract infection): Code(s): N39.0 - Urinary tract infection, site not specified Category: Medical Plan: Resolved. (2) Benign essential hypertension: Code(s): I10 - Essential (primary) hypertension Category: Medical Plan: Hold Diltiazem for now - Pt Normotensive. F/U with PCP as scheduled.
--- OUTSIDE RECORDS SUMMARY | 2024-10-20 16:15 | XMS_ITS | Encounter Summary ---
Author Organization [facility] Address [address] [facility] [address] [place] [address] Phone Care Team Providers Care Raymond Mill Operator Name Role Phone Duong Ramirez MD Primary Care Provider [phone] Encounter Details Date Type Department Care Team (Late st Contact Info) Description 10/19/2024 Plan of Care Documentation [facility] [address] [place], [place] [phone] Social History Tobacco Use Types Packs/Day Years [...] on file documented as of this encounter Plan of Treatment Upcoming Encounters Date Type Department Care Team (Late Contact Info) Description 10/24/2024 2:00 AM EDT Home Care Visit [facility] [address] [place], [place] [phone] Xiomara Magallon RN [address] [place], [place] [phone] 10/26/2024 12:30 AM EDT Home Care Visit [facility] [address] [place] [phone] Xiomara Magallon RN [address] [place] [address] [email or web address] 10/31/2024 2:30 AM EDT Home Care Visit [facility] [address] [place] [phone] Xiomara Magallon RN [address] [place] [address] [email or web address] 11/02/2024 12:30 AM EDT Home Care Visit [facility] [address] [place] [phone] Xiomara Magallon RN [address] [place] [address] [email or web address] 11/07/2024 1:00 AM EDT Home Care Visit [facility] [address] [place] [phone] Xiomara Magallon RN [address] [place] [address] [email or web address] 11/09/2024 Home Care Visit [facility] [address] [place] [phone] Xiomara Magallon RN [address] [place] [address] [email or web address] 11/15/2024 2:30 AM EDT Home Care Visit [facility] [address] [place] [phone] Xiomara Magallon RN [address] [place] [address] [email or web address] 11/22/2024 2:30 AM EDT Home Care Visit [facility] [address] [place] [phone] Xiomara Magallon RN [address] [place] [address] 11/29/2024 Home Care Visit [facility] [address] [place] [phone] Xiomara Magallon RN [address] [place] [address] [email or web address] 12/06/2024 1:00 AM EDT Home Care Visit [facility] [address] [place] [phone] Xiomara Magallon RN [address] [place] [address] 12/13/2024 Home Care Visit [facility] [address] [place] [phone] Xiomara Magallon RN [address] [place] [address] documented as of this encounter Visit Diagnoses Not on filedocumented in this encounter Care Teams Raymond Mill Operator Relationship Specialty Start Date End Date Duong Ramirez MD [address] [place] [address] [place] [address] PCP - General 10/10/24 documented as of this encounter Additional Source Comments The information contained in this document represents components of the legal health record. It is not the complete legal health record.[facility]
--- OUTSIDE RECORDS SUMMARY | 2024-10-20 16:15 | XMS_ITS | Encounter Summary ---
Author Organization [facility] Address [address] [facility] [address] [place] [address] Phone Care Team Providers Care Groundskeeper Porter Name Role Phone Duong Ramirez MD Primary Care Provider [phone] Encounter Details Date Type Department Care Team (Late st Contact Info) Description 10/17/2024 Home Care Visit [facility] [address] [place], [place] [phone] Laisha Navarro RN [address] [place] [address] [email or web address] CASE COMMUNICATION Social History Tobacco Use Types Packs/Day Years Used Date Smoking Tobacco: Never Assessed Education Answer Date Recorded Are you interested [...] Visit [facility] [address] [place], [place] [phone] Xiomara Magallon RN [address] [place], [place] [phone] 10/26/2024 12:30 AM EDT Home Care Visit [facility] [address] [place] [phone] Xiomara Magallon RN [address] [place] [address] 10/31/2024 2:30 AM EDT Home Care Visit [facility] [address] [place] [address] Xiomara Magallon RN [address] [place] [address] 11/02/2024 12:30 AM EDT Home Care Visit [facility] [address] [place] [phone] Xiomara Magallon RN [address] [place] [address] 11/07/2024 1:00 AM EDT Home Care Visit [facility] [address] [place] [phone] Xiomara Magallon RN [address] [place] [address] 11/09/2024 Home Care Visit [facility] [address] [place] [phone] Xiomara Magallon RN [address] [place] [address] 11/15/2024 2:30 AM EDT Home Care Visit [facility] [address] [place] [phone] Xiomara Magallon RN [address] [place] [address] 11/22/2024 2:30 AM EDT Home Care Visit [facility] [address] [place] [address] Xiomara Magallon RN [address] [place] [address] 11/29/2024 Home Care Visit [facility] [address] [place] [address] Xiomara Magallon RN [address] [place] [address] 12/06/2024 1:00 AM EDT Home Care Visit [facility] [address] [place] [address] Xiomara Magallon RN [address] [place] [address] 12/13/2024 Home Care Visit [facility] [address] [place] [address] Xiomara Magallon RN [address] [place] [address] [email or web address] documented as of this encounter Visit Diagnoses Not on filedocumented in this encounter Care Teams Groundskeeper Porter Relationship Specialty Start Date End Date Duong Ramirez MD [address] [place] [address] [place] [address] PCP - General 10/10/24 documented as of this encounter Additional Source Comments The information contained in this document represents components of the legal health record. It is not the complete legal health record.[facility]
--- OUTSIDE RECORDS SUMMARY | 2024-10-20 16:15 | XMS_ITS | Encounter Summary ---
Author Organization [facility] Address [address] [facility] [address] [place] [address] Phone Care Team Providers Care Assembler Dry Cell And Battery Name Role Phone Duong Ramirez MD Primary Care Provider [phone] Encounter Details Date Type Department Care Team (Late st Contact Info) Description 10/17/2024 Home Care Visit [facility] [address] [place], [place] [phone] Laisha Navarro RN [address] [place] [address] TELEPHONE ENCOUNTER Social History Tobacco Use Types Packs/Day Years [...] 2:00 AM EDT Home Care Visit [facility] [address] [place], [place] [phone] Xiomara Magallon RN [address] [place], [place] [phone] 10/26/2024 12:30 AM EDT Home Care Visit [facility] [address] [place] [phone] Xiomara Magallon RN [address] [place] [address] [email or web address] 10/31/2024 2:30 AM EDT Home Care Visit [facility] [address] [place] [address] Xiomara Magallon RN [address] [place] [address] [email or web address] 11/02/2024 12:30 AM EDT Home Care Visit [facility] [address] [place] [phone] Xiomara Magallon RN [address] [place] [address] [email or web address] 11/07/2024 1:00 AM EDT Home Care Visit [facility] [address] [place] [phone] Xiomara Magallon RN [address] [place] [address] [email or web address] 11/09/2024 Home Care Visit [facility] [address] [place] [phone] Xiomara Magallon RN [address] [place] [address] [email or web address] 11/15/2024 2:30 AM EDT Home Care Visit [facility] [address] [place] [phone] Xiomara Magallon RN [address] [place] [address] [email or web address] 11/22/2024 2:30 AM EDT Home Care Visit [facility] [address] [place] [address] Xiomara Magallon RN [address] [place] [address] [email or web address] 11/29/2024 Home Care Visit [facility] [address] [place] [address] Xiomara Magallon RN [address] [place] [address] [email or web address] 12/06/2024 1:00 AM EDT Home Care Visit [facility] [address] [place] [address] Xiomara Magallon RN [address] [place] [address] [email or web address] 12/13/2024 Home Care Visit [facility] [address] [place] [address] Xiomara Magallon RN [address] [place] [address] documented as of this encounter Visit Diagnoses Not on filedocumented in this encounter Care Teams Assembler Dry Cell And Battery Relationship Specialty Start Date End Date Duong Ramirez MD [address] [place] [address] [place] [address] PCP - General 10/10/24 documented as of this encounter Additional Source Comments The information contained in this document represents components of the legal health record. It is not the complete legal health record.[facility]
--- OUTSIDE RECORDS SUMMARY | 2024-10-20 16:15 | XMS_ITS | Clinical Summary ---
Author Organization [facility] Address [address] [facility] [address] [place] [address] Phone Care Team Providers Care Red Cross Executive Director Name Role Phone Duong Ramirez MD Primary Care Provider [phone] [phone] Allergies Active Allergy Reactions Criticality Noted Date Comments Penicillins High 10/19/2024 Medications aspirin 81 mg chewable tablet Take 81 mg by mouth daily. 10/19/2024 Active clonazePAM (KLONOPIN) 0.5 MG tablet Take 0.5 mg by mouth daily as needed for anxiety. 10/19/2024 Active losartan (COZAAR) 50 MG tablet Take 50 mg by mouth daily. 10/19/2024 Active dilTIAZem 240 mg 24hr Take 240 mg by mouth daily. 10/19/2024 Active simvastatin (ZOCOR) 20 MG tablet Take 20 mg by mouth nightly at bedtime. 10/19/2024 Active hydroCHLOROthia zide 25 MG tablet Take 12.5 mg by mouth daily. 10/19/2024 Active levothyroxine (SYNTHROID, LEVOTHROID) 50 MCG tablet Take 25 mcg by mouth every morning. 10/19/2024 Active cholecalciferol (VITAMIN D3) 2,000 unit capsule Take 2,000 Units by mouth daily. 10/19/2024 Active cyanocobalamin, vitamin B-12, 1000 MCG tablet Take 1,000 mcg by mouth daily. 10/19/2024 Active estradioL (ESTRACE) 1 MG tablet Take 1 mg by mouth daily. Off 1 week, repeat cycle 10/19/2024 Active multivit with minerals/lutein (MULTIVITAMIN 50 PLUS ORAL) Take 1 tablet by mouth daily. 10/19/2024 Active Encounters Date Type Department Care Team Description 10/19/2024 1:00 PM EDT Home Care Visit [facility] [address] [place] [phone] Maddie Antonio, DARLENE SN OASIS START OF CARE (SOC) 10/19/2024 Plan of Care Documentation [facility] [address] [place] [phone] 10/17/2024 Home Care Visit [facility] [address] [place] [address] Laisha Navarro, DARLENE CASE COMMUNICATION 10/17/2024 Home Care Visit [facility] [address] [place] [phone] Laisha Navarro, RN TELEPHONE ENCOUNTER 10/15/2024 Home Care Visit [facility] [address] [place] [address], DARLENE CASE COMMUNICATION 10/13/2024 Home Care Visit [facility] [address] [place] [address], DARLENE CASE COMMUNICATION 10/10/2024 Orders Only [facility] [address] [place] [phone] Homehealth, Interface ProviderMD from Last 3 Months Social History Tobacco Use Types Packs/Day Years [...] on file Sexual Orientation Not on file Last Filed Vital Signs Vital Sign Reading Time Taken Comments Blood Pressure 110/60 10/19/2024 1:00 PM EDT Pulse 80 10/19/2024 1:00 PM EDT Temperature 36.3 C (97.4 F) 10/19/2024 1:00 PM EDT Respiratory Rate 18 10/19/2024 1:00 PM EDT Oxygen Saturation 98% 10/19/2024 1:00 PM EDT Inhaled Oxygen Concentration - - Weight - - Height - - Body Mass Index - - Plan of Treatment Upcoming Encounters Date Type Department Care Team (Late st Contact Info) Description 10/24/2024 2:00 AM EDT Home Care Visit [facility] [address] [place] [phone] Xiomara Magallon RN [address] [place] [address] [email or web address] 10/26/2024 12:30 AM EDT Home Care Visit [facility] [address] [place] [phone] Xiomara Magallon RN [address] [place] [address] [email or web address] 10/31/2024 2:30 AM EDT Home Care Visit [facility] [address] [place] [phone] Xiomara Magallon RN [address] [place] [address] [email or web address] 11/02/2024 12:30 AM EDT Home Care Visit [facility] [address] [place] [phone] Xiomara Magallon RN [address] [place] [address] [email or web address] 11/07/2024 1:00 AM EDT Home Care Visit [facility] [address] [place] [address] Xiomara Magallon RN [address] [place] [address] [email or web address] 11/09/2024 Home Care Visit [facility] [address] [place] [phone] Xiomara Magallon RN [address] [place] [address] [email or web address] 11/15/2024 2:30 AM EDT Home Care Visit [facility] [address] [place] [phone] Xiomara Magallon RN [address] [place] [address] [email or web address] 11/22/2024 2:30 AM EDT Home Care Visit [facility] [address] [place] [phone] Xiomara Magallon RN [address] [place] [address] [email or web address] 11/29/2024 Home Care Visit [facility] [address] [place] [phone] Xiomara Magallon RN [address] [place] [address] [email or web address] 12/06/2024 1:00 AM EDT Home Care Visit [facility] [address] [place] [phone] Xiomara Magallon RN [address] [place] [address] [email or web address] 12/13/2024 Home Care Visit [facility] [address] [place] [phone] Xiomara Burch RN [address] [place] [address] [email or web address] Medical Devices Not on file Insurance MEDICARE REPLACEMENT MEDICARE REPLACEMENT MEDICARE REPLACEMENT MEDICARE REPLACEMENT MEDICARE REPLACEMENT Member Subscriber Plan / Payer (Ef fective 2024-Present) Name:Chpi Murrayia Relation to Subscriber:Self Name:Barbara Murray Payer ID:[id number] (NAIC) Type:Medicare Address: [place] [id number] [place] [address] Care Teams Red Cross Executive Director Relationship Specialty Start Date End Date Duong Ramirez MD [address] [place] [address] [place] [address] PCP - General 10/10/24 Additional Source Comments The information contained in this document represents components of the legal health record. It is not the complete legal health record.[facility]
--- OUTSIDE RECORDS SUMMARY | 2024-10-20 16:15 | XMS_ITS | Encounter Summary ---
Author Organization [facility] Address [address] [facility] [address] [place] [address] Phone Care Team Providers Care Sheet Metal Shop Supervisor Name Role Phone Duong Ramirez MD Primary Care Provider [phone] Encounter Details Date Type Department Care Team (Late st Contact Info) Description 10/15/2024 Home Care Visit [facility] [address] [place], [place] [phone] RN [address] [place] [address] CASE COMMUNICATION Social History Tobacco Use Types [...] 2:00 AM EDT Home Care Visit [facility] [address] [place], [place] [phone] Xiomara Magallon RN [address] [place] [address] 10/26/2024 12:30 AM EDT Home Care Visit [facility] [address] [place] [phone] Xiomara Magallon RN [address] [place] [address] 10/31/2024 2:30 AM EDT Home Care Visit [facility] [address] [place] [phone] Xiomara Magallon RN [address] [place] [address] 11/02/2024 12:30 AM EDT Home Care Visit [facility] [address] [place] [phone] Xiomara Magallon RN [address] [place] [address] 11/07/2024 1:00 AM EDT Home Care Visit [facility] [address] [place] [phone] Xiomara Magallon RN [address] [place] [address] 11/09/2024 Home Care Visit [facility] [address] [place] [phone] Xiomara Magallon RN [address] [place] [address] 11/15/2024 2:30 AM EDT Home Care Visit [facility] [address] [place] [address] Xiomara Magallon RN [address] [place] [address] 11/22/2024 2:30 AM EDT Home Care Visit [facility] [address] [place] [address] Xiomara Magallon RN [address] [place] [address] [email or web address] 11/29/2024 Home Care Visit [facility] [address] [place] [address] Xiomara Magallon RN [address] [place] [address] 12/06/2024 1:00 AM EDT Home Care Visit [facility] [address] [place] [address] Xiomara Magallon RN [address] [place] [address] 12/13/2024 Home Care Visit [facility] [address] [place] [address] Xiomara Magallon RN [address] [place] [address] [email or web address] documented as of this encounter Visit Diagnoses Not on filedocumented in this encounter Care Teams Sheet Metal Shop Supervisor Relationship Specialty Start Date End Date Duong Ramirez MD [address] [place] [address] [place] [address] PCP - General 10/10/24 documented as of this encounter Additional Source Comments The information contained in this document represents components of the legal health record. It is not the complete legal health record.[facility]
[2024-10-20 16:16] VITALS: BP 122/62; PULSE 85; TEMP 36.3; O2SAT 97; BMI 29.9
== END 2024-10-20 16:57 | disposition home or self-care (01) ==
LOC: HO.HMCH 16:13
PROVIDERS: PCP Internal Medicine; Visit Provider Nurse Practitioner Family
DX: N39.0 Urinary tract infection, site not specified (principal); I10 Essential (primary) hypertension

== ENCOUNTER → 2024-10-20 16:13 | Outpatient (BNVA) | payer MEDICARE, SELFPAY | PROVIDERS: PCP Internal Medicine; Visit Provider Nurse Practitioner Family | DX: I10 Essential (primary) hypertension (principal); N39.0 Urinary tract infection, site not specified | CPT/HCPCS: 99495 ==

== ENCOUNTER 2024-10-31 08:26 | Outpatient (REF) | payer MEDICARE, SELFPAY ==
--- OUTSIDE RECORDS SUMMARY | 2024-10-19 13:00 | XMS_ITS | Encounter Summary ---
Author Organization [facility] Address [address] [facility] [address] [place] [address] Phone Care Team Providers Care Fur Cutter Name Role Phone Duong Ramirez MD Primary Care Provider [phone] Reason for Visit * Auth/Cert (Routine) Specialty Diagnoses / Procedures Referred By Cele t Referred To Contact Referral ID Status Reason Start Date Expiration Date Visits Re quested Visits Authorized [id number] 1 1 Encounter Details Date Type Department Care Team ([facility] st Contact Info) Description 10/19/2024 1:00 PM EDT Home [facility] Visit [facility] [address] [place], [place] [phone] Maddie Antonio RN [address] [place] [address] SN OASIS START OF CARE (SOC) Social [...] Care Team (Late st Contact Info) Description 10/31/2024 11:00 AM EDT Home [facility] Visit [facility] [address] [place] [phone] Xiomara Magallon RN [address] [place] [address] [email or web address] 10/31/2024 2:30 PM EDT Home Care Visit [facility] [address] [place] [phone] Kinga Cain, PT [address] [place] [address] [email or web address] 11/02/2024 12:30 AM EDT Home Care Visit [facility] [address] [place] [phone] Xiomara Magallon RN [address] [place] [address] [email or web address] 11/02/2024 1:00 AM EDT Home Care Visit [facility] [address] [place] [phone] Kinga Cain, PT [address] [place] [address] [email or web address] 11/07/2024 1:00 AM EDT Home Care Visit [facility] [address] [place] [phone] Xiomara Magallon RN [address] [place] [address] [email or web address] 11/07/2024 1:30 AM EDT Home Care Visit [facility] [address] [place] [phone] Kinga Cain, PT [address] [place] [address] [email or web address] 11/09/2024 Home Care Visit [facility] [address] [place] [phone] Xiomara Magallon RN [address] [place] [address] [email or web address] 11/09/2024 12:45 AM EDT Home Care Visit [facility] [address] [place] [phone] Kinga Cain, PT [address] [place] [address] [email or web address] 11/14/2024 12:45 AM EDT Home Care Visit [facility] [address] [place] [phone] Kinga Cain, PT [address] [place] [address] [email or web address] 11/15/2024 2:30 AM EDT Home Care Visit [facility] [address] [place] [phone] Xiomara Magallon RN [address] [place] [address] [email or web address] 11/16/2024 1:45 AM EDT Home Care Visit [facility] [address] [place] [phone] Kinga Cain, PT [address] [place] [address] [email or web address] 11/21/2024 1:00 AM EDT Home Care Visit [facility] [address] [place] [phone] Kinga Cain, PT [address] [place] [address] [email or web address] 11/22/2024 2:30 AM EDT Home Care Visit [facility] [address] [place] [phone] Xiomara Magallon RN [address] [place] [address] [email or web address] 11/23/2024 Home Care [facility] [address] [place] [phone] Kinga Cain, PT [address] [place] [address] [email or web address] 11/29/2024 Home Care Visit [facility] [address] [place] [phone] Xiomara Magallon RN [address] [place] [address] [email or web address] 12/06/2024 1:00 AM EDT Home Care Visit [facility] [address] [place] [phone] Xiomara Magallon RN [address] [place] [address] [email or web address] 12/13/2024 Home Care Visit [facility] [address] [place] [phone] Xiomara Magallon RN [address] [place] [address] [email or web address] documented as of this encounter Visit Diagnoses Not on filedocumented in this encounter Home Health Visit - Care Plan Visit Details Visit Type -SN OASIS START O F CARE (SOC) Discipline -[facility] Problems Problem Description Start Date Status Goals [...] orthostatic vital signs Description: use agency-specific parameters Problem: - Standard of Care Goal: - Achieve care management for a safe [...] as indicated. [facility] Problem: - Medication Management Goal: - Safe medication management, avoid unnecessary harm related to medication errors and/or interactions Completed - Focus of care, teaching completed and plan for next visit Problem: - Focus of Care and Teaching Goal:HH - Communication and collaboration to achieve patient goals Completed Primary Clinical Focus this Visit & Instruction Provided: Patient referred to homecare services after brief hospitalization to [facility]. Patient is an 83 year old [...] were stable. Patient will be followed by group home team for disease and symptom management. , [...] met. documented in this encounter Care Teams Fur Cutter Relationship Specialty Start Date End Date Duong Ramirez MD [address] [place] [address] [place] [address] PCP - General 10/10/24 documented as of this encounter Additional Source Comments The information contained in this document represents components of the legal health record. It is not the complete legal health record.[facility]
--- OUTSIDE RECORDS SUMMARY | 2024-10-27 10:00 | XMS_ITS | Encounter Summary ---
Author Organization [facility] Address [address] [facility] [address] [place] [address] Phone Care Team Providers Care Manager Steel Name Role Phone Duong Ramirez MD Primary Care Provider [phone] [phone] Reason for Visit * Auth/Cert (Routine) Specialty Diagnoses / Procedures Referred By Cele t Referred To Contact Referral ID Status Reason Start Date Expiration Date Visits Re quested Visits Authorized [id number] 1 1 Encounter Details Date Type Department Care Team ([facility] st Contact Info) Description 10/27/2024 10:00 AM EDT [facility] [address] [place], [place] [phone] Xiomara Magallon, DARLENE [address] [place] [address] [email or web address] SN HOME VISIT Social History Tobacco Use Types Packs/Day Years Used Date Smoking Tobacco: Never Assessed Home Health Assessment: Transportation Answer Date Recorded Lack of Transportation (Medical) No 10/19/2024 Lack of Transportation (Non-Medical) No 10/19/2024 Patient Unable or Declines to Respond No 10/19/2024 Education Answer Date Recorded Are you interested in more education? Not on kristain e 10/10/2024 Are you concerned about learning? [...] Sign Reading Time Taken Comments Blood Pressure 110/62 10/27/2024 11:26 AM EDT Pulse 77 10/27/2024 11:26 AM EDT Temperature 36.4 C (97.6 F) 10/27/2024 11:26 AM EDT Respiratory Rate 18 10/27/2024 11:26 AM EDT Oxygen Saturation 99% 10/27/2024 11:26 AM EDT Inhaled Oxygen Concentration - - Weight - - Height - - Body Mass Index - - documented in this encounter Plan of Treatment Upcoming Encounters Date Type Department Care Team (Late st Contact Info) Description 10/31/2024 11:00 AM EDT Home Care Visit [facility] [address] [place] [phone] Xiomara Magallon RN [address] [place] [address] [email or web address] 10/31/2024 2:30 PM EDT Home Care Visit [facility] [address] [place] [phone] Kinga Cain, PT [address] [place] [address] [email or web address] 11/02/2024 12:30 AM EDT Home Care Visit [facility] [address] [place] [phone] Xiomara Magallon RN [address] [place] [address] [email or web address] 11/02/2024 1:00 AM EDT Home Care Visit [facility] [address] [place] [phone] Kinga Cain, PT [address] [place] [address] [email or web address] 11/07/2024 1:00 AM EDT Home Care Visit [facility] [address] [place] [phone] Xiomara Magallon RN [address] [place] [address] [email or web address] 11/07/2024 1:30 AM EDT Home Care Visit [facility] [address] [place] [phone] Kinga Cain, PT [address] [place] [address] 11/09/2024 Home Care Visit [facility] [address] [place] [phone] Xiomara Magallon RN [address] [place] [address] [email or web address] 11/09/2024 12:45 AM EDT Home Care Visit [facility] [address] [place] [phone] Kinga Cain, PT [address] [place] [address] [email or web address] 11/14/2024 12:45 AM EDT Home Care Visit [facility] [address] [place] [phone] Kinga Cain, PT [address] [place] [address] [email or web address] 11/15/2024 2:30 AM EDT Home Care Visit [facility] [address] [place] [phone] Xiomara Magallon RN [address] [place] [address] [email or web address] 11/16/2024 1:45 AM EDT Home Care Visit [facility] [address] [place] [phone] Kinga Cain, PT [address] [place] [address] 11/21/2024 1:00 AM EDT Home Care Visit [facility] [address] [place] [address] Kinga Cain, PT [address] [place] [address] [email or web address] 11/22/2024 2:30 AM EDT Home Care Visit [facility] [address] [place] [address] Xiomara Magallon RN [address] [place] [address] [email or web address] 11/23/2024 Home Care Visit [facility] [address] [place] [address] Kinga Cain, PT [address] [place] [address] [email or web address] 11/29/2024 Home Care Visit [facility] [address] [place] [phone] Xiomara Magallon RN [address] [place] [address] [email or web address] 12/06/2024 1:00 AM EDT Home Care Visit [facility] [address] [place] [phone] Xiomara Magallon RN [address] [place] [address] [email or web address] 12/13/2024 Home Care Visit [facility] [address] [place] [address] Xiomara Magallon RN [address] [place] [address] [email or web address] documented as of this encounter Visit Diagnoses Not on filedocumented in this encounter Home Health Visit - Care Plan Visit Details Visit Type -SN HOME VISIT Discipline -Halfway Problems Problem Description Start Date Status Goals [...] harm related to medication errors and/or interactions - Medication Management No - Communication and collaboration to achieve patient goals - Focus of Care and Teaching No Interventions Intervention Associated Problem/Goal Status Variance Visit Notes HH - Assess vital signs, pulse oximetry, pain, and as indicated, orthostatic vital signs Description: use agency-specific parameters Problem: - Standard of Care Goal: - Achieve care management for a safe to home/community discharge from homecare Completed - Assess skin integrity Problem: - Standard of Care Goal: - Achieve care management for a safe to home/community discharge from homecare Completed - I/E medication management: administration, purpose, dosages, preparation, setup, scheduling, side effects, food/drug interactions, and potential complications as indicated Description: Update patient's copy of medication list as needed. Problem: - Medication Management Goal: - Safe medication management, avoid unnecessary harm related to medication errors and/or interactions Completed - Complete medication review every visit and medication reconciliation as indicated. Pharmacy information: Description: [facility] [place] Problem: - Medication Management Goal: - Safe medication management, avoid unnecessary harm related to medication errors and/or interactions Completed - Focus of care, teaching completed and plan for next visit Problem: - Focus of Care and Teaching Goal: - Communication and collaboration to achieve patient goals Completed Primary Clinical Focus this Visit & Instruction Provided: Patient is alert and oriented x 3. Vital signs stable. Lung sound clear in all lobed. Denies SOB patient denies GI issues this visit. She denies s/s of UTI but states she has been having stress incontinent lately. SN educated patient to change underwear promptly and also wipe from front to back to prevent recurrent UTI. Patient verbalizes understanding. Instruction Provided to: patient Response to Instruction/Teachin g: Is partially able to teach back topics as evidenced by Verbalizes understanding. Plan for Next Visit Specific Focus & Education Needed: and teaching New Orders: None Updated Discharge Plan: When wound heals. documented in this encounter Care Teams Manager Steel Relationship Specialty Start Date End Date Duong Ramirez MD [address] [place] [address] Dr Crenshaw [address] [place] [address] PCP - General 10/10/24 documented as of this encounter Additional Source Comments The information contained in this document represents components of the legal health record. It is not the complete legal health record.[facility]
--- OUTSIDE RECORDS SUMMARY | 2024-10-28 13:00 | XMS_ITS | Encounter Summary ---
Author Organization [facility] Address [address] [facility] [address] [place] [address] Phone Care Team Providers Care Director Surgical Name Role Phone Duong Ramirez MD Primary Care Provider [phone] Reason for Visit * Auth/Cert (Routine) Specialty Diagnoses / Procedures Referred By Cele t Referred To Contact Referral ID Status Reason Start Date Expiration Date Visits Re quested Visits Authorized [id number] 1 1 Encounter Details Date Type Department Care Team ([facility] st Contact Info) Description 10/28/2024 1:00 PM EDT Home Care Visit [facility] [address] [place], [place] [phone] Myrtel Marcelino, PT [address] [place] [address] [email or web address] PT EVALUATION Social History Tobacco Use Types Packs/Day Years [...] Sign Reading Time Taken Comments Blood Pressure 102/60 10/28/2024 1:46 PM EDT Pulse 76 10/28/2024 1:46 PM EDT Temperature 36.6 C (97.8 F) 10/28/2024 1:46 PM EDT Respiratory Rate - - Oxygen Saturation 97% 10/28/2024 1:46 PM EDT Inhaled Oxygen Concentration - - Weight - - Height - - Body Mass Index - - documented in this encounter Plan of Treatment Upcoming Encounters Date Type Department Care Team (Late st Contact Info) Description 10/31/2024 11:00 AM EDT [facility] [address] [place] [phone] Xiomara Magallon RN [address] [place] [address] [email or web address] 10/31/2024 2:30 PM EDT Home Care Visit [facility] [address] [place] [phone] Kinga Cain, PT [address] [place] [address] [email or web address] 11/02/2024 12:30 AM EDT Home Care Visit [facility] [address] [place] [phone] Xiomara Magallon RN [address] [place] [address] [email or web address] 11/02/2024 1:00 AM EDT Home Care Visit [facility] [address] [place] [phone] Kinga Cain, PT [address] [place] [address] [email or web address] 11/07/2024 1:00 AM EDT Home Care Visit [facility] [address] [place] [phone] Xiomara Magallon RN [address] [place] [address] [email or web address] 11/07/2024 1:30 AM EDT Home Care Visit [facility] [address] [place] [phone] Kinga Cain, PT [address] [place] [address] [email or web address] 11/09/2024 Home Care Visit [facility] [address] [place] [address] Xiomara Magallon RN [address] [place] [address] [email or web address] 11/09/2024 12:45 AM EDT Home Care Visit [facility] [address] [place] [phone] Kinga Cain, PT [address] [place] [address] [email or web address] 11/14/2024 12:45 AM EDT Home Care Visit [facility] [address] [place] [phone] Kinga Cain, PT [address] [place] [address] [email or web address] 11/15/2024 2:30 AM EDT Home Care Visit [facility] [address] [place] [phone] Xiomara Magallon, DARLENE [address] [place] [address] [email or web address] 11/16/2024 1:45 AM EDT Home Care Visit [facility] [address] [place] [phone] Kinga Cain, PT [address] [place] [address] [email or web address] 11/21/2024 1:00 AM EDT Home Care Visit [facility] [address] [place] [phone] Kinga aCin, PT [address] [place] [address] [email or web address] 11/22/2024 2:30 AM EDT Home Care Visit [facility] [address] [place] [phone] Xiomara Magallon RN [address] [place] [address] [email or web address] 11/23/2024 Home Care Visit [facility] [address] [place] [phone] Kinga Cain, PT [address] [place] [address] [email or web address] 11/29/2024 Home Care Visit [facility] [address] [place] [phone] Xiomara Magallon RN [address] [place] [address] [email or web address] 12/06/2024 1:00 AM EDT Home Care Visit [facility] [address] [place] [phone] Xiomara Magallon RN [address] [place] [address] [email or web address] 12/13/2024 Home Care Visit [facility] [address] [place] [phone] Xiomara Magallon RN [address] [place] [address] [email or web address] documented as of this encounter Visit Diagnoses Not on filedocumented in this encounter Home Health Visit - Care Plan Visit Details Visit Type -PT EVALUATION Discipline -Physical Therapy Problems Problem Description Start Date Status Goals [...] goal intervention scheduled/document ed in this visit HH - Mobility and Activity Tolerance - Impaired Disciplines: Physical Therapy 10/28/2024 Active 1 goal linked to scheduled/document ed intervention 2 goal interventions scheduled/document ed in this visit Goals Goal [...] - Focus of Care and Teaching No HH - Demonstrate maximum mobility and activity level for safe function Description: 1) Patient will be Independent with ambulation 200 ft on even and uneven surfaces using LRAD and VSS by 11/25/24 2) Patient will be Independent with HEP with 0 cues by 11/25/24 3) Patient will be Independent with transfers with 0 cues by 11/25/24 4) Patient will be Independent with bed mobility 0 cues by 11/25/24 5) Patient will be (S) with asc/dec 20 stairs with VSS by 11/25/24 HH - Mobility and Activity Tolerance - Impaired No Interventions Intervention Associated Problem/Goal Status Variance [...] related to medication errors and/or interactions Completed HH - Complete medication review every visit and medication reconciliation as indicated. Pharmacy information: Description[facility] [place] Problem:HH - Medication Management Goal:HH - Safe medication management, avoid unnecessary harm related to medication errors and/or interactions Completed HH - Focus of care, teaching completed and plan for next visit Problem:HH - Focus of Care and Teaching Goal:HH - Communication and collaboration to achieve patient goals Completed Primary Clinical Focus this Visit & Instruction Provided: RECENT MEDICAL HX: Was hospitalized at [facility] for UTI after syncopal episode in [employer]. PMH: LLD, hypothyroidism, osteopenia, TSH, lumbar DDD, anxiety, GERD PRECAUTIONS: n/a PRIOR FUNCTIONAL STATUS: She doesn't drive. Was independent with ambulation without device, shared cooking/cleaning duties. reports she did it under protest with a laugh. ENVIRONMENT: Lives in single family home on second floor with 20 steps to enter (B) rails. DME: SC, walker, grab bars, shower seat, [facility] FAMILY/CAREGIVER SUPPORT: is supportive FALL Hx: denies OBJECTIVE MEASURES: STS 3 NEURO: denies parasthesias PAIN: denies pain in past 48 hrs every now and then my hip hurts EDEMA: n/a INCISION/ SKIN: intact TINETTI: 17 STRENGTH: 4-/5 AROM: WFL TRANSFERS: (S) GAIT: Trendelenberg due to LLD, narrow JOSE DANIEL. Per report, she walks into people with cart while shopping at baseline (seemingly due to distraction) BED MOBILITY: (S) CLINICAL SUMMARY: Patient is an 83 yo female referred to PT s/p hospitalization for UTI. She was fairly independent prior to hospitalization, able to walk to 20 stairs up to home from ground level. She has increased sway with gait due to LLD, encouraged to use WW. She reports she feels ok but weak. Patient presents with weakness, decreased mobility and fall risk evidenced by tinetti score 17/28. She has good potential to benefit from skilled PT to improve these deficits. POC discussed with patient who is agreeable. Instruction Provided to: patient Response to Instruction/Teaching: Is partially able to teach back topics as evidenced by . Plan for Next Visit Specific Focus & Education Needed: New Orders: Updated Discharge Plan: HH - Therapeutic interventions, as indicated: Description: balance training, bed mobility training, durable medical equipment training, gait/stair training, home modification, neuromuscular retraining/tone management, and desensitization techniques, therapeutic exercise/home exercise program and transfer training, including bathroom transfers Problem:HH - Mobility and Activity Tolerance - Impaired Goal:HH - Demonstrate maximum mobility and activity level for safe function Completed This visit NMRE, giat training, pt education HH - I/E therapeutic function/activity: Description: As indicated: activity promotion and management, functional mobility training, therapeutic exercise and home exercise program, device use. Problem:HH - Mobility and Activity Tolerance - Impaired Goal:HH - Demonstrate maximum mobility and activity level for safe function Completed documented in this encounter Care Teams Director Surgical Relationship Specialty Start Date End Date Duong Ramirez MD [address] [place] [address] [place] [address] PCP - General 10/10/24 documented as of this encounter Additional Source Comments The information contained in this document represents components of the legal health record. It is not the complete legal health record.[facility]
[2024-10-31 09:07] LABS: MANUAL DIFF FLAG NO
[2024-10-31 09:26] LABS: Hematocrit 35.6 % (37.0-47.0); Hemoglobin 11.6 g/dl (12.0-16.0); Imm Gran Abs Auto 0.03 X10*3/uL (0.00-0.03); Imm Gran Pct Auto 0.3 % (0.0-0.4); Lymphocytes Absolute Auto 2.5 X10*3/uL (1.2-4.9); Mean Corpuscular HGB Conc 32.6 g/dl (31.0-35.0); Mean Corpuscular Hemoglobin 29.4 pg (27.0-33.0); Mean Corpuscular Volume 90.1 fL (80.0-98.0); NRBC Abs Auto 0.000 X10*3/uL (0.0-0.012); NRBC Pct Auto 0.0 /100WBC (0.0-0.2); Platelet Count 242 X10*3/uL (160-400); Red Blood Count 3.95 X10*6/uL (4.20-5.50); White Blood Count 9.5 X10*3/uL (4.8-10.8)
[2024-10-31 09:34] LABS: Hemoglobin A1C 111.9343 umol/L; Total Hemoglobin (HGBA1C) 3082.3855 umol/L
--- OUTSIDE RECORDS SUMMARY | 2024-10-31 10:02 | XMS_ITS | Clinical Summary ---
Author Organization [facility] Address [address] [facility] [address] [place] [address] Phone Care Team Providers Care Arcgis Developer Name Role Phone Duong Ramirez MD Primary Care Provider [phone] [phone] Allergies Active Allergy Reactions Criticality Noted Date [...] Encounters Date Type Department Care Team Description 10/28/2024 1:00 PM EDT Home [facility] [address] [place], [place] [phone] Myrtle Marcelino, PT PT EVALUATION 10/27/2024 10:00 AM EDT [facility] Visit [facility] [address] [place] [address] Xiomara Magallon, DARLENE SN HOME VISIT 10/26/2024 Episode Documentation Update [facility] [address] [place] [address] Ashley Toure 10/23/2024 Home Care Visit [facility] [address] [place], [place] [phone] Kinga Cain, PT TELEPHONE ENCOUNTER 10/19/2024 1:00 PM EDT Home Care Visit [facility] [address] [place] [address] Maddie Antonio, RN SN OASIS START OF CARE (SOC) 10/19/2024 Plan of Care Documentation [facility] [address] [place] [address] 10/17/2024 Home Care Visit [facility] [address] [place] [address] Laisha Navarro RN CASE COMMUNICATION 10/17/2024 Home Care Visit [facility] [address] [place] [address] Laisha Navarro RN TELEPHONE ENCOUNTER 10/15/2024 Home Care Visit [facility] [address] [place], [place] [phone], DARLENE CASE COMMUNICATION 10/13/2024 Home Care Visit [facility] [address] [place] [address], RN CASE COMMUNICATION 10/10/2024 Orders Only [facility] [address] [place] [address] Homehealth, Interface ProviderMD from Last 3 Months [...] F) 10/28/2024 1:46 PM EDT Respiratory Rate 18 10/27/2024 11:26 AM EDT Oxygen Saturation 97% 10/28/2024 1:46 PM EDT Inhaled Oxygen Concentration - - Weight - - Height - - Body Mass Index - - Plan of Treatment Upcoming Encounters Date Type Department Care Team (Late st Contact Info) Description 10/31/2024 11:00 AM EDT Home Care Visit [facility] [address] [place], [place] [phone] Xiomara Magallon, RN [address] [place], [place] 10/31/2024 2:30 PM EDT Home Care Visit [facility] [address] [place], [place] [phone] Kinga Cain, PT [address] [place] [address] 11/02/2024 12:30 AM EDT Home Care Visit [facility] [address] [place] [phone] Xiomara Magallon RN [address] [place] [address] 11/02/2024 1:00 AM EDT Home Care Visit [facility] [address] [place] [phone] Kinga Cain, PT [address] [place] [address] 11/07/2024 1:00 AM EDT Home Care Visit [facility] [address] [place] [phone] Xiomara Magallon RN [address] [place] [address] 11/07/2024 1:30 AM EDT Home Care Visit [facility] [address] [place] [phone] Kinga Cain, PT [address] [place] [address] 11/09/2024 Home Care Visit [facility] [address] [place] [phone] Xiomara Magallon RN [address] [place] [address] 11/09/2024 12:45 AM EDT Home Care Visit [facility] [address] [place] [phone] Kinga Cain, PT [address] [place] [address] 11/14/2024 12:45 AM EDT Home Care Visit [facility] [address] [place] [phone] Kinga Cain, PT [address] [place] [address] 11/15/2024 2:30 AM EDT Home Care Visit [facility] [address] [place] [phone] Xiomara Magallon RN [address] [place] [address] 11/16/2024 1:45 AM EDT Home Care Visit [facility] [address] [place] [phone] Kinga Cain, PT [address] [place] [address] 11/21/2024 1:00 AM EDT Home Care Visit [facility] [address] [place] [phone] Kinga Cain, PT [address] [place] [address] 11/22/2024 2:30 AM EDT Home Care Visit [facility] [address] [place] [phone] Xiomara Magallon RN [address] [place] [address] 11/23/2024 Home Care Visit [facility] [address] [place] [phone] Kinga Cain, PT [address] [place] [address] 11/29/2024 Home Care Visit [facility] [address] [place] [phone] Xiomara Magallon RN [address] [place] [address] 12/06/2024 1:00 AM EDT Home Care Visit [facility] [address] [place], [place] [phone] Xiomara Magallon RN [address] [place] [address] 12/13/2024 Home Care Visit [facility] [address] [place], [place] [phone] Xiomara Magallon RN [address] [place] [address] Medical Devices Not on file Insurance MEDICARE REPLACEMENT MEDICARE REPLACEMENT MEDICARE REPLACEMENT MEDICARE REPLACEMENT MEDICARE REPLACEMENT [facility] MEDICARE REPLACEMENT Care Teams Arcgis Developer Relationship Specialty Start Date End Date Duong Ramirez MD [address] [place] [address] PCP - General 10/10/24 Additional Source Comments The information contained in this document represents components of the legal health record. It is not the complete legal health record.[facility]
--- OUTSIDE RECORDS SUMMARY | 2024-10-31 10:02 | XMS_ITS | Encounter Summary ---
Author Organization [facility] Address [address] [facility] [facility] [address] [place] [phone] Phone Care Team Providers Care Cotton Header Name Role Phone Duong Ramirez MD Primary Care Provider [phone] Encounter Details Date Type Department Care Team (Late st Contact Info) Description 10/26/2024 Episode Documentatio n Update [facility] [address] [place] [phone] Ashley Toure [address] [place] [address] [email or web address] Social History Tobacco Use Types Packs/Day Years [...] Department Care Team (Late Contact Info) Description 10/31/2024 11:00 AM EDT Home Care Visit [facility] [address] [place] [phone] Xiomara Magallon RN [address] [place] [address] [email or web address] 10/31/2024 2:30 PM EDT Home Care Visit [facility] [address] [place] [phone] Kinga Cain, PT [address] [place] [address] [email or web address] 11/02/2024 12:30 AM EDT Home Care Visit [facility] [address] [place] [phone] Xiomara Magallon RN [address] [place] [address] [email or web address] 11/02/2024 1:00 AM EDT Home Care Visit [facility] [address] [place] [phone] Kinga Cain, PT [address] [place] [address] [email or web address] 11/07/2024 1:00 AM EDT Home Care Visit [facility] [address] [place] [phone] Xiomara Magallon RN [address] [place] [address] [email or web address] 11/07/2024 1:30 AM EDT Home Care Visit [facility] [address] [place] [phone] Kinga Cain, PT [address] [place] [address] [email or web address] 11/09/2024 Home Care Visit [facility] [address] [place] [address] Xiomara Magallon RN [address] [place] [address] [email or web address] 11/09/2024 12:45 AM EDT Home Care Visit [facility] [address] [place] [phone] Kinga Cain, PT [address] [place] [address] [email or web address] 11/14/2024 12:45 AM EDT Home Care Visit [facility] [address] [place] [address] Kinga Cain, PT [address] [place] [address] [email or web address] 11/15/2024 2:30 AM EDT Home Care Visit [facility] [address] [place] [address] Xiomara Magallon RN [address] [place] [address] [email or web address] 11/16/2024 1:45 AM EDT Home Care Visit [facility] [address] [place] [address] Kinga Cain, PT [address] [place] [address] [email or web address] 11/21/2024 1:00 AM EDT Home Care Visit [facility] [address] [place] [address] Kinga Cain, PT [address] [place] [address] [email or web address] 11/22/2024 2:30 AM EDT Home Care Visit [facility] [address] [place] [address] Xiomara Magallon RN [address] [place] [address] [email or web address] 11/23/2024 Home Care Visit [facility] [address] [place] [phone] Kinga Cain, PT [address] [place] [address] 11/29/2024 Home Care Visit [facility] [address] [place] [address] Xiomara Magallon RN [address] [place] [address] [email or web address] 12/06/2024 1:00 AM EDT Home Care Visit [facility] [address] [place] [phone] Xiomara Magallon RN [address] [place] [address] [email or web address] 12/13/2024 Home Care Visit [facility] [address] [place] [address] Xiomara Magallon RN [address] [place] [address] [email or web address] documented as of this encounter Visit Diagnoses Not on filedocumented in this encounter Care Teams Cotton Header Relationship Specialty Start Date End Date Duong Ramirez MD [address] [place] [address] [place] [address] PCP - General 10/10/24 documented as of this encounter Additional Source Comments The information contained in this document represents components of the legal health record. It is not the complete legal health record.[facility]
[2024-10-31 10:13] LABS: Alanine Aminotransferase 12 U/L (0-31); Albumin Level 3.8 g/dL (3.5-5.0); Alkaline Phosphatase 76 U/L (39-117); Anion Gap 11 (12-20); Aspartate Amino Transferase 37 U/L (5-31); Blood Urea Nitrogen 32 mg/dL (9-16); Calcium 9.7 mg/dL (8.4-10.2); Carbon Dioxide 24 mmol/L (22-29); Chloride 112 mmol/L (96-108); Cholesterol 167 mg/dL (<200); Estimated Glomerular Filt Rate 39; HDL Cholesterol 49 mg/dL (>40); Potassium 3.6 mmol/L (3.3-5.1); Sodium 143 mmol/L (135-145); Total Protein 7.0 g/dL (6.5-8.0); Triglycerides 125 mg/dL (<150)
[2024-10-31 10:32] LABS: Free T4 (Free Thyroxine) 1.03 ng/dL (0.71-1.85); Thyroid Stimulating Hormone 2.14 uIU/mL (0.32-4.0)
[2024-10-31 10:35] LABS: Folate 9.4 ng/mL (> or = 4.0); Vitamin B12 > 2000 pg/mL (200-900)
[2024-10-31 11:37] LABS: Appearance Urine Clear; Glucose Urine UA Negative (Negative); PH 5.5 (5.0-9.0); Specific Gravity - Urine 1.020 (1.005-1.025)
== END 2024-10-31 08:27 | disposition home or self-care (01) ==
LOC: HO.LAB 08:26
PROVIDERS: PCP Internal Medicine; Visit Provider Internal Medicine
DX: D64.9 Anemia, unspecified (principal); R30.0 Dysuria; E78.00 Pure hypercholesterolemia, unspecified; R73.01 Impaired fasting glucose; E55.9 Vitamin D deficiency, unspecified; E03.9 Hypothyroidism, unspecified; E53.8 Deficiency of other specified B group vitamins
CPT/HCPCS: 36415; 80053; 80061; 81003; 82306; 82607; 82746; 83036; 84439; 84443; 85025

== ENCOUNTER 2024-11-06 12:13 | Outpatient (AMB) | payer MEDICARE, SELFPAY ==
--- NOTE | 2024-11-06 12:32 | MHC.PC.OV ---
Vital Signs 11/06/24 12:34 Height 4 ft 11 in Weight 147 lb 6 oz BMI 29.8 BP 146/66 H Blood Pressure Location Lt brachial Position Sitting Pulse 72 Pulse Source Pulse Oximeter Temp 97.3 F Temp Source Temporal Artery Scan Pulse Oximetry (%) 98 Oxygen Delivery Method Room Air Intake Visit Reasons: 4mth f/u Intake Note: Patient is here to follow up on Hypothyroidism, GERD, LDDD, HTN. 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 Instructions: Resume on 10/23/24. Hold until you see your PCP about resuming medication estradiol 1 mg PO DAILY 30 days hydrochlorothiazide 12.5 mg PO DAILY levothyroxine 25 mcg PO DAILY@0600 losartan 50 mg PO DAILY 90 days multivitamin 1 tab PO DAILY simvastatin 20 mg PO DAILY Tobacco use date assessed: 11/06/24 Fall risk assessment: No Falls in past year Last assessed Fall Risk: 11/06/24 Dental Screening Dental Screen Date: 07/03/24 HPI 4mth f/u HPI Details Patient comes in today for her follow up visit States that she currently feels okay She was brought to the ER last month following a syncopal episode while she was at the checkout line at her local grocery Her was fortunately able to catch her before she fell She was reportedly unresponsive for a few seconds before she regained consciousness but was still brought to the ER for further evaluation She was found to have a UTI on work ups done at the ER, with also a serum lactic acid level of 2.1 Chest x-rays, head CT and EKG all came back normal but she was found to be bradycardic, with her heart rate around 40 to 50 bpm Her Diltiazem CD 240 mg was held and she is currently still not back on it yet She was sent home with oral Abx (Cefuroxime 250 mg) x 7 days, which she completed at the end of last month She denies any headaches or dizziness - states that she has not had any recurrence of her syncopal episode She denies any chest pains, no SOB No nausea/vomiting, no abdominal pain No change in bowel habits noted She had her follow up labs done last week - to discuss her results [facility] Medical History (Updated 11/06/24 @ 14:51 by Duong Ramirez MD) Overweight (BMI 25.0-29.9) Vitamin B12 deficiency (non anemic) Obesity (BMI 30-39.9) Impaired fasting glucose Elevated TSH Acquired hypothyroidism Colonoscopy refused Post-menopausal Transient ischemic attack (TIA) Anxiety GERD without esophagitis Osteopenia Lumbar degenerative disc disease Vitamin D deficiency Pure hypercholesterolemia Benign essential hypertension Surgical History History of surgery History of total abdominal hysterectomy and bilateral salpingo-oophorectomy Family History Father Cancer Mother Cancer Hypertension Chronic mental illness Brother No problems noted. Sister No problems noted. Social History Household Members: Spouse Housing: House Do you presently have visiting nurse or other home services: No Alcohol intake: current Alcohol intake frequency: holidays/special occasions only Alcohol type: wine Patient Tobacco Use Status: Never used Tobacco e-Cigarette/Vaping Use: Never Used Second Hand Smoke Exposure: No service: No Current occupational status: retired Cognitive needs: No Hearing needs: No Vision needs: Yes Questionnaire PHQ-9 Over the last 2 weeks, how often have you been bothered by any of the following problems? Depression Screening Interpretation: Negative Depression Screening Done: Yes Source: Developed by Drs. Daniel Arango, Geeta Gallagher, Milton Adams and colleagues, with an educational rocio from [employer]. Thrive Questionnaire Date Thrive assessed: 10/08/24 I am a: Patient What is your living situation today?: I have a steady place to live Within the past 12 months, did the food you bought not last and you didn't have the money to get more?: Never true Within the past 12 months, did you worry whether your food would run out before you got money to buy more?: Never true Do you have trouble paying for medicines?: No Do you have trouble getting transportation to medical appointments?: No Do you have trouble paying your heating and electricity bill?: No Do you have trouble taking care of your child, family member or friend?: No Do you have trouble with day-to-day activities such as bathing, preparing meals, shopping, managing finances, etc.?: Yes Are you currently unemployed and looking for a job?: No Are you interested in more education?: No Please select the resources that you would like help with: None Currently or been in a relationship where the following occur: No concerns reported THRIVE Score: 0 PAVEL-7 AMB Questionnaire PAVEL-7 Date PAVEL - 7 assessed: 07/03/24 Source: Developed by Drs. Daniel Arango, Geeta Gallagher, Milton Adams and colleagues, with an educational rocio from [employer]. Review of Systems Const Denies chills, Reports fatigue, Denies fever(s) and Denies headache(s) ENT Denies dysphagia, Denies dizziness, Denies otalgia, Denies headache(s), Denies neck pain, Denies odynophagia and Denies sore throat Card Denies chest pain, Denies irregular heart rhythm, Denies palpitations and Denies dyspnea Resp Denies chest congestion, Denies cough and Denies dyspnea GI Denies abdominal pain, Denies constipation, Denies dysphagia, Denies heartburn, Denies diarrhea, Denies nausea, Denies odynophagia and Denies vomiting Denies difficulty voiding, Denies dysuria, Denies urinary incontinence and Denies urinary urgency Musc Reports abnormal gait (unsteady lately), Reports back pain (on and off over the right side but states they have been very mild), Denies neck pain and Denies numbness Skin/Breast Denies rash Neuro Reports abnormal gait (unsteady lately), Denies dizziness, Denies headache(s) and Denies numbness Psych Denies anxiety and Denies depression Endo Reports fatigue and Denies palpitations Huan/Lymph Denies easy bruising Physical exam (Primary Care) Vital Signs: Last Vital Signs Temp 97.3 F 11/06/24 12:34 Pulse 72 11/06/24 12:34 BP 146/66 H 11/06/24 12:34 Pulse Ox 98 11/06/24 12:34 Oxygen Delivery Method Room Air 11/06/24 12:34 BMI result Body Mass Index 29.8 Tobacco/Smoking Status: Tobacco use Status Tobacco use date assessed 11/06/24 11/06/24 12:39 Patient Tobacco Use Status Never used Tobacco 11/06/24 12:39 e-Cigarette/Vaping Use Never Used 11/06/24 12:39 Depression Screening Interpretation: Negative Thrive Assessment: Date of Thrive Assessment Date Thrive assessed 10/08/24 11/06/24 12:39 Currently or been in a relationship where the following occur: No concerns reported Const General: no acute distress and alert HENMT Ears: TM's normal bilaterally and EAC's normal Throat: Yes posterior oropharynx normal and Yes tonsils normal (no TP congestion noted) Neck Neck: Yes supple and No lymphadenopathy Thyroid: Thyroid normal Resp Auscultation: clear to auscultation bilaterally, no rales and no wheezes Cardio Rate: regular rate Rhythm: regular rhythm Heart sounds: no murmurs GI Palpation (GI): Soft to palpation and nontender Auscultation: normal bowel sounds General: Yes no CVA tenderness Back/Spine/Pelvis Back: no CVA tenderness Thoracic/Lumbar Spine: lumbar spinal tenderness (mild) Skin Rashes: no rashes Extrem General: Yes no clubbing, cyanosis or edema Results Reviewed Results Reviewed: Laboratory Tests 10/31/24 10/31/24 08:48 09:05 WBC 9.5 Hgb 11.6 L Hct 35.6 L Plt Count 242 Sodium 143 Potassium 3.6 Creatinine 1.30 Estimated GFR 39 Fasting Glucose 104 H Hemoglobin A1c % 5.5 Calcium 9.7 D AST 37 H ALT 12 Triglycerides 125 Cholesterol 167 LDL Cholesterol, Calc 93 HDL Cholesterol 49 Vitamin B12 > 2000 H 25-OH Vitamin D Total 78.2 TSH 2.14 Free T4 1.03 Ur Specific [place] 1.020 Urine Protein Trace Urine Glucose (UA) Negative Urine Blood Negative Urine Nitrite Negative Ur Leukocyte Esterase Negative Coding Level of Care Code Est Pt Level 4 (23421) Diagnoses Syncope, unspecified syncope type R55 Syncope type: unspecified Osteopenia, unspecified location M85.80 Osteopenia location: unspecified Pure hypercholesterolemia E78.00 Benign essential hypertension I10 Transient ischemic attack (TIA) G45.9 Impaired fasting glucose R73.01 Acquired hypothyroidism E03.9 Vitamin D deficiency E55.9 Degeneration of intervertebral disc of lumbar region with discogenic back pain M51.360 Disc-related pain type: discogenic back pain only GERD without esophagitis K21.9 Anxiety F41.9 Vitamin B12 deficiency (non anemic) E53.8 Overweight (BMI 25.0-29.9) E66.3 Assessment & Plan Assessment & Plan (1) Syncope: Code(s): R55 - Syncope and collapse Category: Medical Qualifiers: Syncope type: unspecified Qualified Code(s): R55 - Syncope and collapse Plan: This occurred last month when patient was at the checkout line at her local grocery - states that this has not recurred since Was most likely triggered by her UTI at the time - s/p Tx with Abx Her Dilitiazem ER 240 mg QD was held when she was found to be bradycardic as well at the time, with her HR ~ 40 to 50 /min All other work ups done came out negative/normal (2) Osteopenia: Comment: Baseline BMD done in February 2017 showed (+) osteopenia Code(s): M85.80 - Other specified disorders of bone density and structure, unspecified site Category: Medical Qualifiers: Osteopenia location: unspecified Qualified Code(s): M85.80 - Other specified disorders of bone density and structure, unspecified site Plan: Repeat BMD done on 10/26/2023 revealed (+) osteopenia based on the lowest T-score value of -1.7 in the femoral neck - this is mostly unchanged from her previous BMD done in 11/2020 Her 10-YEAR FRACTURE RISK PREDICTION, FRAX score = Major osteoporotic fracture (clinical spine, forearm, hip or shoulder) 13.8% and hip fracture 3.7% Patient is again advised to continue with her Vitamin-D and Calcium supplements as instructed and to try exercising regularly to help keep up her BMD (3) Pure hypercholesterolemia: Code(s): E78.00 - Pure hypercholesterolemia, unspecified Category: Medical Plan: Results of her labs done last week reviewed and discussed with patient Reinforced low cholesterol diet Continue Simvastatin 20 mg QD (4) Benign essential hypertension: Code(s): I10 - Essential (primary) hypertension Category: Medical Plan: Reinforced low sodium diet - goal is systolic BP of at least 140 mm or less Continue Losartan 50 mg QD and Hydrochlorothiazide 12.5 mg QD Her Diltiazem ER 240 mg Q AM is still on hold - Rx was held when she suffered a syncopal episode last month and she was noted to be bradycardic at the time Her blood pressure now is elevated at 146/66 Will lower her Diltiazem ER dose and start her this time on 120 mg QD; will D/C Diltiazem ER 240 mg QD Patient is instructed to continue monitoring her blood pressure regularly (5) Transient ischemic attack (TIA): Code(s): G45.9 - Transient cerebral ischemic attack, unspecified Category: Medical Plan: Patient denies any recurrence of symptoms over the past couple of years except for her syncopal episode last month, which was likely triggered by her UTI Continue anti-platelet Tx with low dose Aspirin 81 mg QD and with aggressive risk factor modification, primarily control of her BP, cholesterol, blood sugar Follow up with neurology as scheduled (6) Impaired fasting glucose: Code(s): R73.01 - Impaired fasting glucose Category: Medical Plan: Her HgbA1c remains normal at 5.5% on her recent labs; was also normal at 5.4% when previously checked Reinforced low calorie diet/exercise as tolerated (7) Acquired hypothyroidism: Code(s): E03.9 - Hypothyroidism, unspecified Category: Medical Plan: Her TSH and free T4 level have both remained normal on her recent labs done last week Continue Levothyroxine 25 mcg QD (8) Vitamin D deficiency: Code(s): E55.9 - Vitamin D deficiency, unspecified Category: Medical Plan: Continue Vitamin D3 2000 units twice a week (9) Lumbar degenerative disc disease: Code(s): M51.36 - Other intervertebral disc degeneration, lumbar region Category: Medical Qualifiers: Disc-related pain type: discogenic back pain only Qualified Code(s): M51.360 - Other intervertebral disc degeneration, lumbar region with discogenic back pain only Plan: Reinforced activity and weight lifting restrictions States that she continues to do the back exercises she was previously taught regularly to help manage her back pain, which have been mostly manageable/tolerable lately (10) GERD without esophagitis: Code(s): K21.9 - Gastro-esophageal reflux disease without esophagitis Category: Medical Plan: Dietary restrictions reinforced Continue Famotidine 20 mg BID as needed (11) Anxiety: Code(s): F41.9 - Anxiety disorder, unspecified Category: Medical Plan: Continue Clonazepam 0.5 mg once a day as needed (12) Vitamin B12 deficiency (non anemic): Code(s): E53.8 - Deficiency of other specified B group vitamins Category: Medical Plan: Continue Vitamin B12 1000 mcg QD (13) Overweight (BMI 25.0-29.9): Code(s): E66.3 - Overweight Category: Medical Plan: Reinforced diet/ exercise as tolerated /lose weight although with her recent unsteadiness, this may not be practical or realistic Plan Follow up in 1 month Medications: New diltiazem HCl CD (Cartia XT) 120 mg PO QAM 30 caps 2RF 30 days Discontinued diltiazem HCl CD (Cartia XT) Discontinued Reason: Doctor's Order 240 mg PO QAM 90 days 90 caps 1RF
[2024-11-06 12:34] VITALS: BP 146/66; PULSE 72; TEMP 36.3; O2SAT 98; BMI 29.8
== END 2024-11-06 13:04 | disposition home or self-care (01) ==
LOC: HO.HMCH 12:15
PROVIDERS: PCP Internal Medicine; Visit Provider Internal Medicine
DX: R55 Syncope and collapse (principal); M85.80 Other specified disorders of bone density and structure, unspecified site; E78.00 Pure hypercholesterolemia, unspecified; I10 Essential (primary) hypertension; G45.9 Transient cerebral ischemic attack, unspecified; R73.01 Impaired fasting glucose; E03.9 Hypothyroidism, unspecified; E55.9 Vitamin D deficiency, unspecified; M51.360 Other intervertebral disc degeneration, lumbar region with discogenic back pain only; K21.9 Gastro-esophageal reflux disease without esophagitis; F41.9 Anxiety disorder, unspecified; E53.8 Deficiency of other specified B group vitamins; E66.3 Overweight

== ENCOUNTER → 2024-11-06 12:13 | Outpatient (BNVA) | payer MEDICARE, SELFPAY | PROVIDERS: PCP Internal Medicine; Visit Provider Internal Medicine | DX: R55 Syncope and collapse (principal); M85.80 Other specified disorders of bone density and structure, unspecified site; E78.00 Pure hypercholesterolemia, unspecified; I10 Essential (primary) hypertension; G45.9 Transient cerebral ischemic attack, unspecified; R73.01 Impaired fasting glucose; E03.9 Hypothyroidism, unspecified; E55.9 Vitamin D deficiency, unspecified; M51.360 Other intervertebral disc degeneration, lumbar region with discogenic back pain only; K21.9 Gastro-esophageal reflux disease without esophagitis; F41.9 Anxiety disorder, unspecified; E53.8 Deficiency of other specified B group vitamins; E66.3 Overweight; Z68.29 Body mass index [BMI] 29.0-29.9, adult | CPT/HCPCS: 99212 ==

== ENCOUNTER 2024-12-06 10:55 | Outpatient (AMB) | payer MEDICARE, SELFPAY ==
--- NOTE | 2024-12-06 11:24 | A.OFFPC_ITS ---
Vital Signs 12/06/24 11:25 Height 4 ft 11 in Weight 147 lb BMI 29.7 BP 112/64 Blood Pressure Location Lt brachial Position Sitting Pulse 80 Pulse Source Pulse Oximeter Pulse Oximetry (%) 98 Oxygen Delivery Method Room Air Intake Visit Reasons: BP and HR recheck - med change okay per Dr. PEARCE Commission Auditor Required: No Accompanied by: Self / Same As Patient Allergies levofloxacin Allergy (Unknown, Verified 12/06/24 17:05) Unknown penicillin V Allergy (Unknown, Verified 12/06/24 17:05) Unknown Sulfa (Sulfonamide Antibiotics) Allergy (Unknown, Verified 12/06/24 17:05) Unknown Medication List - Last Reconciled 12/06/24 by Duong Ramirez MD aspirin 81 mg PO DAILY cholecalciferol (vitamin D3) 50 mcg PO DAILY 90 days clonazepam 0.5 mg PO DAILY PRN 30 days cyanocobalamin (vitamin B-12) 1,000 mcg PO DAILY 90 days diltiazem HCl CD (Cartia XT) 120 mg PO QAM 30 days estradiol 1 mg PO DAILY 30 days hydrochlorothiazide 12.5 mg PO DAILY levothyroxine 25 mcg PO DAILY@0600 losartan 50 mg PO DAILY 90 days multivitamin 1 tab PO DAILY sennosides (senna) 17.2 mg (2 x 8.6 mg) PO DAILY PRN 30 days simvastatin 20 mg PO BEDTIME Tobacco use date assessed: 12/06/24 Fall risk assessment: 1 Fall in past year Last assessed Fall Risk: 12/06/24 Dental Screening Dental Screen Date: 12/06/24 Did you have a dental visit in the last 12 months?: No Did you have a dental problem in the last 6 months where you did not have access to dental care?: No Was dental information given to patient?: No HPI BP and HR recheck - med change okay per Dr. PEARCE HPI Details Patient comes in today for her follow up visit States that she feels okay and has not had any further syncopal episodes ever since her last visit here about a month ago Her Diltiazem CD 240 mg was held after her syncopal episode and she was started back on the Rx but at half her usual dose at 120 mg QD due to high blood pressure Patient states that since she started taking the Rx, she feels okay and has not had any dizziness or other unusual symptoms She denies any headaches Denies any chest pains, no increased SOB No nausea/vomiting, no abdominal pain No change in bowel habits noted COUNT INCLUDES THE [facility] Medical History Overweight (BMI 25.0-29.9) Vitamin B12 deficiency (non anemic) Obesity (BMI 30-39.9) Impaired fasting glucose Elevated TSH Acquired hypothyroidism Colonoscopy refused Post-menopausal Transient ischemic attack (TIA) Anxiety GERD without esophagitis Osteopenia Lumbar degenerative disc disease Vitamin D deficiency Pure hypercholesterolemia Benign essential hypertension Surgical History History of surgery History of total abdominal hysterectomy and bilateral salpingo-oophorectomy Family History Father Cancer Mother Cancer Hypertension Chronic mental illness Brother No problems noted. Sister No problems noted. Social History Household Members: Spouse Housing: House Do you presently have visiting nurse or other home services: No Alcohol intake: current Alcohol intake frequency: holidays/special occasions only Alcohol type: wine Patient Tobacco Use Status: Never used Tobacco e-Cigarette/Vaping Use: Never Used Second Hand Smoke Exposure: No service: No Current occupational status: retired Cognitive needs: No Hearing needs: No Vision needs: Yes Questionnaire PHQ-9 Over the last 2 weeks, how often have you been bothered by any of the following problems? Depression Screening Interpretation: Negative Depression Screening Done: Yes Source: Developed by Drs. Daniel Arango, Geeta Gallagher, Milton Adams and colleagues, with an educational rocio from [employer]. Thrive Questionnaire Date Thrive assessed: 07/03/24 I am a: Patient What is your living situation today?: I have a steady place to live Within the past 12 months, did the food you bought not last and you didn't have the money to get more?: Never true Within the past 12 months, did you worry whether your food would run out before you got money to buy more?: Never true Do you have trouble paying for medicines?: No Do you have trouble getting transportation to medical appointments?: No Do you have trouble paying your heating and electricity bill?: No Do you have trouble taking care of your child, family member or friend?: No Do you have trouble with day-to-day activities such as bathing, preparing meals, shopping, managing finances, etc.?: Yes Are you currently unemployed and looking for a job?: No Are you interested in more education?: No Please select the resources that you would like help with: None Currently or been in a relationship where the following occur: No concerns reported THRIVE Score: 0 AUDIT C Alcohol Use Questionnaire (AUDIT-C) 1. How often do you have a drink containing alcohol?: Never 3. How often do you have six or more drinks on one occasion?: Never Total Score: 0 Score Reviewed/Action Taken: Yes PAVEL-7 AMB Questionnaire PAVEL-7 Date PAVEL - 7 assessed: 07/03/24 Source: Developed by Drs. Daniel Arango, Geeta Gallagher, Milton Adams and colleagues, with an educational rocio from [employer]. Review of Systems Const Denies chills, Reports fatigue, Denies fever(s) and Denies headache(s) ENT Denies dysphagia, Denies dizziness, Denies otalgia, Denies headache(s), Denies neck pain, Denies odynophagia and Denies sore throat Card Denies chest pain, Denies irregular heart rhythm, Denies palpitations and Denies dyspnea Resp Denies chest congestion, Denies cough and Denies dyspnea GI Denies abdominal pain, Denies constipation, Denies dysphagia, Denies heartburn, Denies diarrhea, Denies nausea, Denies odynophagia and Denies vomiting Denies difficulty voiding, Denies dysuria, Denies urinary incontinence and Denies urinary urgency Musc Reports abnormal gait (unsteady lately), Reports back pain (on and off over the right side but states they have been very mild), Denies neck pain and Denies numbness Skin/Breast Denies rash Neuro Reports abnormal gait (unsteady lately), Denies dizziness, Denies headache(s) and Denies numbness Psych Denies anxiety and Denies depression Endo Reports fatigue and Denies palpitations Huan/Lymph Denies easy bruising Physical exam (Primary Care) Vital Signs: Last Vital Signs Pulse 80 12/06/24 11:25 BP 112/64 12/06/24 11:25 Pulse Ox 98 12/06/24 11:25 Oxygen Delivery Method Room Air 12/06/24 11:25 BMI result Body Mass Index 29.7 Tobacco/Smoking Status: Tobacco use Status Tobacco use date assessed 12/06/24 12/06/24 11:33 Patient Tobacco Use Status Never used Tobacco 12/06/24 11:33 e-Cigarette/Vaping Use Never Used 12/06/24 11:33 Depression Screening Interpretation: Negative Thrive Assessment: Date of Thrive Assessment Date Thrive assessed 07/03/24 12/06/24 11:33 Currently or been in a relationship where the following occur: No concerns reported Const General: no acute distress and alert HENMT Throat: Yes posterior oropharynx normal and Yes tonsils normal (no TP congestion noted) Neck Neck: Yes supple and No lymphadenopathy Thyroid: Thyroid normal Resp Auscultation: clear to auscultation bilaterally, no rales and no wheezes Cardio Rate: regular rate Rhythm: regular rhythm Heart sounds: no murmurs GI Palpation (GI): Soft to palpation and nontender Auscultation: normal bowel sounds General: Yes no CVA tenderness Back/Spine/Pelvis Back: no CVA tenderness Thoracic/Lumbar Spine: lumbar spinal tenderness (mild) Skin Rashes: no rashes Extrem General: Yes no clubbing, cyanosis or edema Coding Level of Care Code Est Pt Level 4 (91970) Complex EM visit Add On G2211 Diagnoses Syncope, unspecified syncope type R55 Syncope type: unspecified Benign essential hypertension I10 Pure hypercholesterolemia E78.00 Impaired fasting glucose R73.01 Acquired hypothyroidism E03.9 Transient ischemic attack (TIA) G45.9 Osteopenia, unspecified location M85.80 Osteopenia location: unspecified Vitamin D deficiency E55.9 Lumbar degenerative disc disease M51.36 GERD without esophagitis K21.9 Vitamin B12 deficiency (non anemic) E53.8 Anxiety F41.9 Overweight (BMI 25.0-29.9) E66.3 Assessment & Plan Assessment & Plan (1) Syncope: Code(s): R55 - Syncope and collapse Category: Medical Qualifiers: Syncope type: unspecified Qualified Code(s): R55 - Syncope and collapse Plan: This occurred a couple of months ago when patient was at the checkout line at her local grocery - states that this has not recurred since This was most likely triggered by her UTI at the time - s/p Tx with Abx Her Dilitiazem ER 240 mg QD was held when she was found to be bradycardic also at the time, with her HR ~ 40 to 50 /min All other work ups done came out negative/normal (2) Benign essential hypertension: Code(s): I10 - Essential (primary) hypertension Category: Medical Plan: Reinforced low sodium diet - goal is systolic BP of at least 140 mm or less Continue Losartan 50 mg QD and Hydrochlorothiazide 12.5 mg QD She was also started back on Diltiazem CD 120 mg QD last month and appears to be tolerating the Rx so far and her blood pressure today is much better than it was last month Patient is advised to continue monitoring her blood pressure regularly (3) Pure hypercholesterolemia: Code(s): E78.00 - Pure hypercholesterolemia, unspecified Category: Medical Plan: Reinforced low cholesterol diet Continue Simvastatin 20 mg QD Will recheck her labs and fasting lipids in 4 months for follow up (4) Impaired fasting glucose: Code(s): R73.01 - Impaired fasting glucose Category: Medical Plan: Her HgbA1c remains normal at 5.5% on her recent labs; was also normal at 5.4% when previously checked Reinforced low calorie diet/exercise as tolerated (5) Acquired hypothyroidism: Code(s): E03.9 - Hypothyroidism, unspecified Category: Medical Plan: Continue Levothyroxine 25 mcg QD Will recheck her TFTs in 4 months for follow up (6) Transient ischemic attack (TIA): Code(s): G45.9 - Transient cerebral ischemic attack, unspecified Category: Medical Plan: Patient denies any recurrence of symptoms over the past couple of years except for her syncopal episode a couple of months ago, which was likely triggered by her UTI Continue anti-platelet Tx with low dose Aspirin 81 mg QD and with aggressive risk factor modification, primarily control of her BP, cholesterol, blood sugar Follow up with neurology as scheduled (7) Osteopenia: Comment: Baseline BMD done in February 2017 showed (+) osteopenia Code(s): M85.80 - Other specified disorders of bone density and structure, unspecified site Category: Medical Qualifiers: Osteopenia location: unspecified Qualified Code(s): M85.80 - Other specified disorders of bone density and structure, unspecified site Plan: Repeat BMD done on 10/26/2023 revealed (+) osteopenia based on the lowest T-score value of -1.7 in the femoral neck - this is mostly unchanged from her previous BMD done in 11/2020 Her 10-YEAR FRACTURE RISK PREDICTION, FRAX score = Major osteoporotic fracture (clinical spine, forearm, hip or shoulder) 13.8% and hip fracture 3.7% Patient is again advised to continue with her Vitamin-D and Calcium supplements as instructed and to try exercising regularly to help keep up her BMD (8) Vitamin D deficiency: Code(s): E55.9 - Vitamin D deficiency, unspecified Category: Medical Plan: Continue Vitamin D3 2000 units twice a week (9) Lumbar degenerative disc disease: Code(s): M51.36 - Other intervertebral disc degeneration, lumbar region Category: Medical Plan: Reinforced activity and weight lifting restrictions States that she continues to do the back exercises she was previously taught regularly to help manage her back pain, which have been mostly manageable/tolerable lately (10) GERD without esophagitis: Code(s): K21.9 - Gastro-esophageal reflux disease without esophagitis Category: Medical Plan: Dietary restrictions reinforced Continue Famotidine 20 mg BID as needed (11) Vitamin B12 deficiency (non anemic): Code(s): E53.8 - Deficiency of other specified B group vitamins Category: Medical Plan: Continue Vitamin B12 1000 mcg QD (12) Anxiety: Code(s): F41.9 - Anxiety disorder, unspecified Category: Medical Plan: Continue Clonazepam 0.5 mg once a day as needed (13) Overweight (BMI 25.0-29.9): Code(s): E66.3 - Overweight Category: Medical Plan: Reinforced diet/ exercise as tolerated /lose weight although with her recent unsteadiness, this may not be practical or realistic Plan Follow up in 4 months Orders: Orders Comprehensive [place]. Panel Fast 03/24/25 E78.00 - Pure hypercholesterolemia, unspecified Complete Blood Count Auto Diff 03/24/25 D64.9 - Anemia, unspecified Lipid Panel 03/24/25 E78.00 - Pure hypercholesterolemia, unspecified
[2024-12-06 11:25] VITALS: BP 112/64; PULSE 80; O2SAT 98; BMI 29.7
--- OUTSIDE RECORDS SUMMARY | 2024-12-06 14:32 | XMS_ITS | Patient Health Record ---
Author Organization [facility] Address [address] [place] [address] Care Team Providers Care Bass String Winder Name Role Phone Derek Ramirez MDh Primary Care Provider Unava ilable Black, Susan Unavailable [phone] Allergies Allergen (clinical drug ingredient) Drug/Non Drug Allergy documented on EMR Reaction Allergy Type Onset Date Status Penicillin Unknown Drug Allergy Active Reason For Referral No Information Medications Medication SIG (Take, Route, Frequency, Duration) Notes Start Date End Date Status Levothyroxine Sodium 25 MCG 1 tablet in the morning on an empty stomach Orally Once a day Active Vitamin B12 Active Ammonium Lactate 12 % 1 application Exte rnally to affected areas of dry skin to feet except for between the toes Twice a day; Duration: 90 days Active dilTIAZem HCl ER 240 MG 1 tablet Orally Once a day Active Ciclopirox 8 % 1 application thin f ilm topically to nails Externally Once a day; Duration: 90 days Active Losartan Potassium 50 MG 1 tablet Orally Once a day Active Estradiol 1 MG 1 tablet Orally take for 30 days- off 1 week Active Simvastatin 20 MG 1 tablet in the even ing Orally Once a day Active Vitamin D3 Active hydroCHLOROthiazide 12.5 MG 1 tablet in the morning Orally Once a day Active clonazePAM 0.5 MG 1 tablet Orally Once a day Active Aspirin 81 Active Immunizations Vaccine Route Administration Date Status Comme nts Influenza Unknown 11/20/2024 Refused Social History Tobacco Use: Social History Observation Description Date Details (start date - stop date) Never Smoker NA - NA Tobacco use other than smoking: Question Answer Notes Are you an other tobacco user? No Tobacco Control (Standard) Question Answer Notes Tobacco use: Nonsmoker Additional Findings: Tobacco non-user Current no nsmoker AUDIT-C (Standard) Question Answer Notes Did you have a drink containing alcohol in the p ast year? No Points 0 Interpretation Negative Vital Signs Blood pressure diastolic 70 mm Hg 11/20/2024 Height 4ft 11in in 11/20/2024 Blood pressure systolic 120 mm Hg 11/20/2024 Weight 152 lbs 11/20/2024 BMI 30.7 kg/m2 11/20/2024 Procedures Procedure Date Ordered Date Performed Result Body Sit e 49507-[id number] Plate 11/20/2024 N/A Encounters Encounter Location Date Provider Diagnosis [facility] [address] 11/20/2024 Susan Black Pain in right toe(s) M79.674 ; Onychomycosis B35.1 ; Pain in left toe(s) M79.675 ; Xerosis of skin L85.3 and Ingrown nail L60.[address] [facility] [address] 09/01/2024 Susan Black [facility] [address] 11/20/2024 Susan Black Onychomycosis B35.1 and Xerosis of skin L85.3 Assessments Encounter Date Diagnosis (ICD Code) Assessment Notes Treatment Notes Treatment Clinical Notes Section Notes 11/20/2024 Pain in right toe(s) (ICD-10 - M79.674) 11/20/2024 Onychomycosis (ICD-10 - B35.1) CancelRx Response got Denied on 2024-11-20 16:46:21 for 'Ciclopirox 8 % Solution'Pharm acy Notes: Patient unknown to the Prescriber. 11/20/2024 Onychomycosis (ICD-10 - B35.1) 11/20/2024 Xerosis of skin (ICD-10 - L85.3) 11/20/2024 Pain in left toe(s) (ICD-10 - M79.675) 11/20/2024 Xerosis of skin (ICD-10 - L85.3) 11/20/2024 Ingrown nail (ICD-10 - L60.0) Plan Of Treatment Pending Test Test Name Order Date [id number] Plate 11/20/2024 Next Appt Details Provider Name:Susan Bell , 03/29/2025 10:30:00 AM, [address] [place], [address], Insurance Providers Payer Name Payer Address Payer Phone Subscriber Number Group Number Insured Name Patient Relationship to Insured Coverage Start Date Coverage End Date [employer] Medicare Adv-[id number] [address] [address] [place] [address] [id number] Barbara Amos Self - patient is the insured Medical (General) History Medical History History ICD Code Back,Hip,and Knee pain Broken bones High Blood Pressure Reflux ( GERD) Scarlet fever Measles uti Surgical History Surgery Date(Month/Year) hysterectomy foot surgery Hospitalization History Reason Date(Month/Year) passed out 11/09
== END 2024-12-06 12:03 | disposition home or self-care (01) ==
LOC: HO.HMCH 10:56
PROVIDERS: PCP Internal Medicine; Visit Provider Internal Medicine
DX: R55 Syncope and collapse (principal); I10 Essential (primary) hypertension; E78.00 Pure hypercholesterolemia, unspecified; R73.01 Impaired fasting glucose; E03.9 Hypothyroidism, unspecified; G45.9 Transient cerebral ischemic attack, unspecified; M85.80 Other specified disorders of bone density and structure, unspecified site; E55.9 Vitamin D deficiency, unspecified; M51.369 Other intervertebral disc degeneration, lumbar region without mention of lumbar back pain or lower extremity pain; K21.9 Gastro-esophageal reflux disease without esophagitis; E53.8 Deficiency of other specified B group vitamins; F41.9 Anxiety disorder, unspecified; E66.3 Overweight

== ENCOUNTER → 2024-12-06 10:55 | Outpatient (BNVA) | payer MEDICARE, SELFPAY | PROVIDERS: PCP Internal Medicine; Visit Provider Internal Medicine | DX: I10 Essential (primary) hypertension (principal); R55 Syncope and collapse; E78.00 Pure hypercholesterolemia, unspecified; R73.01 Impaired fasting glucose; E03.9 Hypothyroidism, unspecified; M85.80 Other specified disorders of bone density and structure, unspecified site; E55.9 Vitamin D deficiency, unspecified; M51.369 Other intervertebral disc degeneration, lumbar region without mention of lumbar back pain or lower extremity pain; K21.9 Gastro-esophageal reflux disease without esophagitis; E53.8 Deficiency of other specified B group vitamins; F41.9 Anxiety disorder, unspecified; E66.3 Overweight; Z68.29 Body mass index [BMI] 29.0-29.9, adult; Z86.73 Personal history of transient ischemic attack (TIA), and cerebral infarction without residual deficits | CPT/HCPCS: 99212 ==